=== PATIENT | female | born 1975 | race Caucasian/White ===

== ENCOUNTER → 2016-09-15 | Outpatient (CLI) | payer BC ==
[2016-09-15 08:11] LABS: ALT 32 U/L (9-52); AST 20 U/L (14-36); Alkaline Phosphatase 52 U/L (38-126); Anion Gap 8 mmol/L; Blood Urea Nitrogen 14 mg/dL (7-17); Calcium 9.3 mg/dL (8.4-10.2); Carbon Dioxide 29 mmol/L (22-30); Chloride 106 mmol/L (98-107); Cholesterol 163 mg/dL (<200); Creatine Kinase 211 U/L (30-135); Glucose 100 mg/dL (74-99); HDL Cholesterol 43 mg/dL (40-60); Non-African American GFR(MDRD) >60 (>60 ml/min/1.73 sqM); Potassium 4.6 mmol/L (3.5-5.1); Sodium 143 mmol/L (137-145); Total Bilirubin 0.7 mg/dL (0.2-1.3); Total Protein 7.3 g/dL (6.3-8.2); Triglycerides 121 mg/dL (<150)
--- NOTE | 2016-09-17 08:42 | MM ---
Reason for exam: screening (asymptomatic). Last mammogram was performed 2 years and 9 months ago. History: Family history of breast cancer in maternal grandmother at age 70 and breast cancer in maternal aunt. Took hormonal contraceptives for 10 years beginning at age 14. Physical Findings: A clinical breast exam by your physician is recommended on an annual basis and results should be correlated with mammographic findings. MG Screening Mammo w CAD Bilateral CC and MLO view(s) were taken. Prior study comparison: December 04, 2013, CAD bilateral diagnostic mammogram. August 24, 2011, bilateral digital screening mammo w/CAD. There are scattered fibroglandular densities. Focal asymmetry right MLO. This finding is changed when compared with previous exams. ASSESSMENT: Incomplete: need additional imaging evaluation, BI-RAD 0 RECOMMENDATION: Special view mammogram of the right breast. If lesion persists on supplemental views, image directed ultrasound is recommended. [facility] will attempt to contact patient to return for supplemental views and ultrasound if indicated.
== END | disposition home or self-care (01) ==
LOC: RADMAMWWP 07:39
PROVIDERS: ATTEND Family Medicine
DX: Z12.31 Encounter for screening mammogram for malignant neoplasm of breast (principal); R92.2 Inconclusive mammogram; I25.10 Atherosclerotic heart disease of native coronary artery without angina pectoris; E78.00 Pure hypercholesterolemia, unspecified
CPT/HCPCS: 80061; 80053; 82550; 36415; G0202

== ENCOUNTER → 2016-09-18 | Outpatient (CLI) | payer BC ==
--- NOTE | 2016-09-18 08:56 | MM ---
Reason for exam: additional evaluation requested from abnormal screening. Last mammogram was performed less than 1 month ago. History: Family history of breast cancer in maternal grandmother at age 70 and breast cancer in maternal aunt. Took hormonal contraceptives for 10 years beginning at age 14. Physical Findings: Nurse did not find any significant physical abnormalities on exam. MG Work Up Mamm w CAD RT CCRM, ML, and spot compression MLO view(s) were taken of the right breast. Prior study comparison: September 15, 2016, bilateral MG screening mammo w CAD. December 04, 2013, CAD bilateral diagnostic mammogram. There are scattered fibroglandular densities. Focal asymmetry in the right breast does not persist as distinct lesion on additional views. These results were verbally communicated with the patient and result sheet given to the patient on 09/18/16. ASSESSMENT: Benign, BI-RAD 2 RECOMMENDATION: Return to routine screening mammogram schedule for both breasts.
== END | disposition home or self-care (01) ==
LOC: RADMAMWWP 08:09
PROVIDERS: ATTEND Family Medicine
DX: R92.8 Other abnormal and inconclusive findings on diagnostic imaging of breast (principal)

== ENCOUNTER → 2016-12-19 | Outpatient (CLI) | payer BC ==
--- NOTE | 2016-12-26 14:37 | P.ARTDOP ---
Arterial Doppler Upper EXTREMITY ARTERIAL DOPPLER: DATE OF SERVICE: 12/19/2016 Reason for study: Weak right arm pulse. Doppler waveforms: Multiphasic bilaterally throughout. A bit more blunted on the right than the left. Pulse volume recording: []. Pressure gradients: Significant left to right gradient with right brachial 27 mmHg lower than the left and right radial 42 mmHg less than the left. 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 Clinical correlation recommended..
== END | disposition home or self-care (01) ==
LOC: RADUSWWP 13:43
PROVIDERS: ATTEND Internal Medicine Cardiovascular Disease
DX: R09.89 Other specified symptoms and signs involving the circulatory and respiratory systems (principal)
CPT/HCPCS: 93923

== ENCOUNTER → 2017-01-11 | Outpatient (CLI) | payer BC ==
[2017-01-11 13:33] LABS: CHCM 33.8; HCT 44.5 % (34.0-46.0); HDW 2.14; HGB 14.9 gm/dL (11.4-16.0); MCH 30.8 pg (25.0-35.0); MCHC 33.5 g/dL (31.0-37.0); Mean Platelet Volume 7.2; RBC 4.83 m/uL (3.80-5.40); RDW 12.1 % (11.5-15.5)
[2017-01-11 13:42] LABS: INR 1.1 (<1.1); Partial Thromboplastin Time 23.6 sec (22.0-30.0); Prothrombin Time 11.3 sec (9.0-12.0)
[2017-01-11 13:44] LABS: Anion Gap 13 mmol/L; Blood Urea Nitrogen 15 mg/dL (7-17); Calcium 9.6 mg/dL (8.4-10.2); Carbon Dioxide 23 mmol/L (22-30); Chloride 106 mmol/L (98-107); Glucose 104 mg/dL (74-99); Non-African American GFR(MDRD) >60 (>60 ml/min/1.73 sqM); Sodium 142 mmol/L (137-145)
== END | disposition home or self-care (01) ==
LOC: LABWHC1 12:50
PROVIDERS: ATTEND Internal Medicine Cardiovascular Disease
DX: I25.10 Atherosclerotic heart disease of native coronary artery without angina pectoris (principal)
CPT/HCPCS: 36415; 80048; 85027; 85610; 85730

== ENCOUNTER → 2017-09-17 | Outpatient (CLI) | payer BC ==
--- NOTE | 2017-09-18 09:35 | MM ---
Reason for exam: screening (asymptomatic). Last mammogram was performed 1 year ago. History: Family history of breast cancer in maternal grandmother at age 70 and breast cancer in maternal aunt. Took hormonal contraceptives for 10 years beginning at age 14. Physical Findings: A clinical breast exam by your physician is recommended on an annual basis and results should be correlated with mammographic findings. MG Screening Mammo w CAD Bilateral CC and MLO view(s) were taken. Prior study comparison: September 15, 2016, bilateral MG screening mammo w CAD. December 04, 2013, CAD bilateral diagnostic mammogram. There are scattered fibroglandular densities. Finding: There are typically benign round, regional calcifications in the posterior position of the right breast. There is no discrete abnormality. ASSESSMENT: Benign, BI-RAD 2 RECOMMENDATION: Routine screening mammogram of both breasts in 1 year.
== END | disposition home or self-care (01) ==
LOC: RADMAMWWP 13:37
PROVIDERS: ATTEND Obstetrics & Gynecology
DX: Z12.31 Encounter for screening mammogram for malignant neoplasm of breast (principal); Z80.3 Family history of malignant neoplasm of breast
CPT/HCPCS: 77067

== ENCOUNTER → 2017-11-22 | Outpatient (CLI) | payer BC ==
[2017-11-22 08:57] LABS: ALT 21 U/L (9-52); AST 18 U/L (14-36); Albumin 3.9 g/dL (3.5-5.0); Alkaline Phosphatase 60 U/L (38-126); Anion Gap 9 mmol/L; Blood Urea Nitrogen 13 mg/dL (7-17); Calcium 9.4 mg/dL (8.4-10.2); Carbon Dioxide 25 mmol/L (22-30); Chloride 106 mmol/L (98-107); Cholesterol 180 mg/dL (<200); Creatine Kinase 180 U/L (30-135); Glucose 100 mg/dL (74-99); HDL Cholesterol 38 mg/dL (40-60); LDL Cholesterol,Calculated 93 mg/dL (0-99); Potassium 4.5 mmol/L (3.5-5.1); Sodium 140 mmol/L (137-145); Total Bilirubin 0.7 mg/dL (0.2-1.3); Total Protein 6.9 g/dL (6.3-8.2); Triglycerides 246 mg/dL (<150)
== END | disposition home or self-care (01) ==
LOC: LABWHC1 07:33
PROVIDERS: ATTEND Internal Medicine Cardiovascular Disease
DX: I25.10 Atherosclerotic heart disease of native coronary artery without angina pectoris (principal); E78.00 Pure hypercholesterolemia, unspecified
CPT/HCPCS: 36415; 80053; 80061; 82550

== ENCOUNTER → 2017-12-27 | Outpatient (CLI) | payer BC ==
[2017-12-27 09:39] LABS: ALT 21 U/L (9-52); AST 17 U/L (14-36); Alkaline Phosphatase 58 U/L (38-126); Anion Gap 13 mmol/L; Blood Urea Nitrogen 13 mg/dL (7-17); Calcium 9.3 mg/dL (8.4-10.2); Carbon Dioxide 20 mmol/L (22-30); Chloride 108 mmol/L (98-107); Cholesterol 160 mg/dL (<200); Creatine Kinase 238 U/L (30-135); Glucose 93 mg/dL (74-99); HDL Cholesterol 31 mg/dL (40-60); LDL Cholesterol,Calculated 75 mg/dL (0-99); Potassium 4.5 mmol/L (3.5-5.1); Sodium 141 mmol/L (137-145); Total Bilirubin 0.9 mg/dL (0.2-1.3); Total Protein 6.7 g/dL (6.3-8.2); Triglycerides 268 mg/dL (<150)
== END | disposition home or self-care (01) ==
LOC: LABWHC1 08:00
PROVIDERS: ATTEND Internal Medicine Cardiovascular Disease
DX: E78.2 Mixed hyperlipidemia (principal); I25.10 Atherosclerotic heart disease of native coronary artery without angina pectoris; E03.8 Other specified hypothyroidism
CPT/HCPCS: 36415; 80053; 80061; 82550; 84443

== ENCOUNTER → 2018-01-23 | Outpatient (CLI) | payer BC | LOC: LABWHC1 11:20 | PROVIDERS: ATTEND Internal Medicine Cardiovascular Disease | DX: R74.8 Abnormal levels of other serum enzymes (principal) | CPT/HCPCS: 36415; 82550 ==

== ENCOUNTER → 2018-01-29 | Outpatient (CLI) | payer BC ==
--- NOTE | 2018-01-30 10:54 | ECHOF ---
Referral Reason:I25.110 CAD I10 htn R53.83 fatigue MEASUREMENTS -------- HEIGHT: 160.0 cm WEIGHT: 120.7 kg BP: 120/70 RVIDd: 3.1 cm (< 3.3) IVSd: 1.3 cm (0.6 - 1.1) LVIDd: 3.9 cm (3.9 - 5.3) LVPWd: 1.3 cm (0.6 - 1.1) IVSs: 1.6 cm LVIDs: 2.8 cm LVPWs: 1.5 cm LA Diam: 3.7 cm (2.7 - 3.8) LAESV Index (A-L): 17.39 ml/m Ao Diam: 2.2 cm (2.0 - 3.7) AV Cusp: 1.6 cm (1.5 - 2.6) EPSS: 0.3 cm MV E Manolo: 1.22 m/s MV DecT: 273 ms MV A Manolo: 0.81 m/s MV E/A Ratio: 1.51 AV maxP.66 mmHg AV meanP.12 mmHg RAP: 5.00 mmHg RVSP: 21.55 mmHg MV EF SLOPE: 55.46 mm/s (70 - 150) MV EXCURSION: 1.70 cm (> 18.000) FINDINGS -------- Sinus rhythm. This was a technically adequate study. The left ventricular size is normal. There is mild concentric left ventricular hypertrophy. Overa ll left ventricular systolic function is normal with, an EF between 55 - 60 %. The right ventricle is normal in size. Normal LA size by volume 22+/-6 ml/m2. The right atrium is normal in size. Peak/mean gradient across the Aortic Valve is 20.66mmHg / 9.12mmHg. Normally functioning bioprosthe tic valve. Mild mitral regurgitation is present. Mild tricuspid regurgitation present. Right ventricular systolic pressure is normal at < 35 mmHg. There is no pulmonic regurgitation present. The aortic root size is normal. Normal inferior vena cava with normal inspiratory collapse consistent with estimated right atrial pre ssure of 5 mmHg. There is no pericardial effusion. CONCLUSIONS -------- 1. Sinus rhythm. 2. This was a technically adequate study. 3. The left ventricular size is normal. 4. There is mild concentric left ventricular hypertrophy. 5. Overall left ventricular systolic function is normal with, an EF between 55 - 60 %. 6. The right ventricle is normal in size. 7. Normal LA size by volume 22+/-6 ml/m2. 8. The right atrium is normal in size. 9. Peak/mean gradient across the Aortic Valve is 20.66mmHg / 9.12mmHg. 10. Normally functioning bioprosthetic valve. 11. Mild mitral regurgitation is present. 12. Mild tricuspid regurgitation present. 13. Right ventricular systolic pressure is normal at < 35 mmHg. 14. There is no pulmonic regurgitation present. 15. The aortic root size is normal. 16. Normal inferior vena cava with normal inspiratory collapse consistent with estimated right atrial pressure of 5 mmHg. 17. There is no pericardial effusion. [employer] SUPERVISOR: SHANT Mullen
== END | disposition home or self-care (01) ==
LOC: RADECHMAIN 13:54
PROVIDERS: ATTEND Family Medicine
DX: I10 Essential (primary) hypertension (principal); R53.83 Other fatigue; I25.10 Atherosclerotic heart disease of native coronary artery without angina pectoris
CPT/HCPCS: 93306

== ENCOUNTER → 2018-06-24 | Outpatient (CLI) | payer BC ==
[~2018-06-24] MED LIST: REGADENOSON 0.4 MG/5 ML SYRINGE IV ONE
--- NOTE | 2018-06-24 13:22 | NM ---
EXAMINATION TYPE: NM stress lexiscan cardiolite DATE OF EXAM: 06/24/2018 COMPARISON: NONE HISTORY: Chest pain TECHNIQUE: After the intravenous administration of 10.32 mCi Tc 99m Sestamibi - Cardiolite resting S PECT images acquired 45 minutes post injection. The patient received 0.4mg Lexiscan, 25.4 mCi Tc 99m Sestamibi - Stress images obtained [address] injection FINDINGS: Review of stress and rest SPECT images demonstrates decreased reaffirms of uptake along the inferolat eral left ventricle towards the apex on stress as compared to rest images. Gated analysis shows shana l wall motion with an estimated left ventricular ejection fraction of 74 %. IMPRESSION: Pharmacologically induced left ventricular myocardial ischemia. Consider echocardiographic correlatio n for elevated ejection fraction. Results relayed to the office of Dr. Chris Cruz telephonically at the time of interpretation of this exam
--- NOTE | 2018-06-24 15:56 | P.STRESS ---
- Stress Test Note Stress Test Results/Findings: Exam Performed: NM stress lexiscan cardiolite Exam Date: 06/24/18 Reason for Exam: CHEST PAIN Height: 5 ft 3 in Weight: 123.377 kg Protocol: LEXISCAN Stage: NA Duration of Exercise: NA Resting Heart Rate: 71 Resting Blood Pressure: 167/67 Maximum Achieved Heart Rate: 120 Maximum Achieved Blood Pressure: 167/67 85% PMHR: NA 100% PMHR: NA METS: NA Technologist Comment: Stress Test Results/Findings: Baseline heart rate 71 beats a minute, baseline blood pressure 167/67 mmHg Baseline telemetry ECG showed sinus rhythm with incomplete right bundle branch block nonspecific ST segment abnormality Patient received Lexiscan infusion per protocol there was no ECG or rigors for ischemia no arrhythmias are noted Nuclear portion will be reported separately
== END | disposition home or self-care (01) ==
LOC: RADNMMAIN 07:58
PROVIDERS: ATTEND Internal Medicine Cardiovascular Disease
DX: I25.9 Chronic ischemic heart disease, unspecified (principal); R07.9 Chest pain, unspecified
CPT/HCPCS: 93017; 78452; A9500; J2785

== ENCOUNTER → 2018-06-30 | Outpatient (CLI) | payer BC ==
[2018-06-30 12:49] LABS: HCT 42.3 % (34.0-46.0); HGB 14.5 gm/dL (11.4-16.0); MCH 31.8 pg (25.0-35.0); MCHC 34.4 g/dL (31.0-37.0); MCV 92.6 fL (80.0-100.0); Mean Platelet Volume 7.2; Platelet Count 240 k/uL (150-450); RBC 4.57 m/uL (3.80-5.40); RDW 12.9 % (11.5-15.5)
[2018-06-30 13:06] LABS: Anion Gap 7 mmol/L; Blood Urea Nitrogen 13 mg/dL (7-17); Calcium 9.5 mg/dL (8.4-10.2); Carbon Dioxide 24 mmol/L (22-30); Chloride 106 mmol/L (98-107); Glucose 92 mg/dL (74-99); Potassium 4.5 mmol/L (3.5-5.1); Sodium 137 mmol/L (137-145)
[2018-06-30 13:19] LABS: INR 1.1 (<1.2); Prothrombin Time 10.3 sec (9.0-12.0)
== END ==
LOC: LABWHC1 11:45
PROVIDERS: ATTEND Internal Medicine Cardiovascular Disease
DX: Z01.812 Encounter for preprocedural laboratory examination (principal); I25.10 Atherosclerotic heart disease of native coronary artery without angina pectoris; R94.39 Abnormal result of other cardiovascular function study; Z95.2 Presence of prosthetic heart valve
CPT/HCPCS: 36415; 80048; 85027; 85610

== ENCOUNTER → 2018-07-30 | Outpatient (CLI) | payer BC ==
--- NOTE | 2018-07-30 15:57 | ECHOF ---
Referral Reason:Z95.2 Presence of prosthetic heart valve MEASUREMENTS -------- HEIGHT: 160.0 cm WEIGHT: 121.6 kg BP: RVIDd: 2.8 cm (< 3.3) IVSd: 1.1 cm (0.6 - 1.1) LVIDd: 4.0 cm (3.9 - 5.3) LVPWd: 1.1 cm (0.6 - 1.1) IVSs: 1.3 cm LVIDs: 1.9 cm LVPWs: 1.3 cm LAESV Index (A-L): 21.29 ml/m Ao Diam: 3.0 cm (2.0 - 3.7) LA Diam: 4.2 cm (2.7 - 3.8) MV EXCURSION: 17.354 mm (> 18.000) MV EF SLOPE: 61 mm/s (70 - 150) EPSS: 0.4 cm MV E Manolo: 1.09 m/s MV DecT: 256 ms MV A Manolo: 0.93 m/s MV E/A Ratio: 1.17 AV maxP.09 mmHg AV meanP.92 mmHg RAP: 5.00 mmHg RVSP: 23.47 mmHg FINDINGS -------- Sinus rhythm. This was a technically adequate study. The left ventricular size is normal. There is borderline concentric left ventricular hypertrophy. Overall left ventricular systolic function is normal with, an EF between 55 - 60 %. The right ventricle is normal in size and function. Normal LA size by volume 22+/-6 ml/m2. The right atrium is normal in size. There is no evidence of aortic regurgitation. There is no evidence of aortic stenosis. Normally f unctioning bioprosthetic aortic valve. The mitral valve leaflets are mildly thickened. There is trace to mild mitral regurgitation. Trace tricuspid regurgitation present. Right ventricular systolic pressure is normal at < 35 mmHg. There is no evidence of pulmonary hypertension. There is no pulmonic regurgitation present. The aortic root size is normal. Normal inferior vena cava with normal inspiratory collapse consistent with estimated right atrial pre ssure of 5 mmHg. There is no pericardial effusion. CONCLUSIONS -------- 1. Sinus rhythm. 2. This was a technically adequate study. 3. The left ventricular size is normal. 4. There is borderline concentric left ventricular hypertrophy. 5. Overall left ventricular systolic function is normal with, an EF between 55 - 60 %. 6. Normal LA size by volume 22+/-6 ml/m2. 7. Normally functioning bioprosthetic aortic valve. 8. The mitral valve leaflets are mildly thickened. 9. There is trace to mild mitral regurgitation. 10. Trace tricuspid regurgitation present. 11. Right ventricular systolic pressure is normal at < 35 mmHg. 12. There is no evidence of pulmonary hypertension. 13. There is no pulmonic regurgitation present. 14. The aortic root size is normal. 15. There is no pericardial effusion. RADARMAN: Ventura Nance RDCS
== END | disposition home or self-care (01) ==
LOC: RADECHMAIN 13:13
PROVIDERS: ATTEND Internal Medicine Cardiovascular Disease
DX: I34.0 Nonrheumatic mitral (valve) insufficiency (principal); I51.7 Cardiomegaly; Z95.2 Presence of prosthetic heart valve
CPT/HCPCS: 93306

== ENCOUNTER → 2018-12-01 | Outpatient (CLI) | payer BC ==
--- NOTE | 2018-12-02 08:20 | MM ---
Reason for exam: screening (asymptomatic). Last mammogram was performed 1 year and 3 months ago. History: Family history of breast cancer in maternal grandmother at age 70 and breast cancer in maternal aunt. Took hormonal contraceptives for 10 years beginning at age 14. Physical Findings: A clinical breast exam by your physician is recommended on an annual basis and results should be correlated with mammographic findings. MG Screening Mammo w CAD Bilateral CC and MLO view(s) were taken. Prior study comparison: September 17, 2017, bilateral MG screening mammo w CAD. September 18, 2016, right breast MG work up mamm w CAD RT. There are scattered fibroglandular densities. No suspicious abnormality. No significant changes when compared with prior studies. ASSESSMENT: Negative, BI-RAD 1 RECOMMENDATION: Routine screening mammogram of both breasts in 1 year.
== END | disposition home or self-care (01) ==
LOC: RADMAMWWP 11:46
PROVIDERS: ATTEND Obstetrics & Gynecology
DX: Z12.31 Encounter for screening mammogram for malignant neoplasm of breast (principal); Z80.3 Family history of malignant neoplasm of breast
CPT/HCPCS: 77067

== ENCOUNTER → 2019-01-19 | Outpatient (CLI) | payer BC ==
--- NOTE | 2019-02-24 13:43 | EM ---
EVENT MONITOR AGE: 43 SEX: Female. INDICATIONS:: The patient was monitored between the 19 of January and the February,. The rhythm strip revealed a sinus mechanism with episode of sinus tachycardia. There was one 4 complex ventricular tachycardia noted on the 26 of January that was asymptomatic. No pauses were noted. USMAN / MERT: [id number] /
== END | disposition home or self-care (01) ==
LOC: RADECHMAIN 12:25
PROVIDERS: ATTEND Family Medicine
DX: R00.0 Tachycardia, unspecified (principal); I25.10 Atherosclerotic heart disease of native coronary artery without angina pectoris
CPT/HCPCS: 93270

== ENCOUNTER → 2019-05-04 | Outpatient (CLI) | payer BC ==
[2019-05-04 18:52] LABS: African American GFR (CKD) 123.9 (60.0-200.0); Albumin 3.9 g/dL (3.80-4.90); Albumin/Globulin Ratio 1.77 (1.60-3.17); BUN/Creat Ratio 14.29 Ratio (12.00-20.00); Calcium 9.3 mg/dL (8.7-10.3); Chol/HDL Ratio 6.23; Globulin 2.2 g/dL (1.6-3.3); Total Bilirubin 0.6 mg/dL (0.2-1.2); Total Protein 6.1 g/dL (6.2-8.2)
== END | disposition home or self-care (01) ==
LOC: LABWHC1 11:22
PROVIDERS: ATTEND Internal Medicine Cardiovascular Disease
DX: E78.2 Mixed hyperlipidemia (principal)
CPT/HCPCS: 36415; 80053; 80061; 82550

== ENCOUNTER → 2019-08-10 | Outpatient (CLI) | payer BC ==
[2019-08-10 18:28] LABS: African American GFR (CKD) 123.9 (60.0-200.0); Anion Gap 5.7 mmol/L (4.00-12.00); BUN/Creat Ratio 17.14 Ratio (12.00-20.00); Carbon Dioxide 26.3 mmol/L (21.6-31.8); Chol/HDL Ratio 6.36; LDL Cholesterol,Calculated 148.6 mg/dL (0.0-131.0); Non-African American GFR(CKD) 106.9 (60.0-200.0); Potassium 4.7 mmol/L (3.5-5.5); Total Bilirubin 0.6 mg/dL (0.3-1.2); VLDL Calculation 60.4 mg/dL (5.00-40.00)
== END | disposition home or self-care (01) ==
LOC: LABWHC1 07:20
PROVIDERS: ATTEND Internal Medicine Cardiovascular Disease
DX: E78.2 Mixed hyperlipidemia (principal)
CPT/HCPCS: 36415; 80053; 80061; 82550

== ENCOUNTER → 2019-08-11 | Outpatient (CLI) | payer BC ==
--- NOTE | 2019-08-11 15:25 | P.BASOAP ---
Subjective Progress Note Date: 08/11/19 Principal diagnosis: Morbid obesity Patient switched her care from [facility] to [facility]. History of previous lap band. Believes she has gained some weight recently. When looking at her previous chart she has lost 10 pounds per our records. Describes variable restriction. Occasional episodes of dysphagia. Heartburn this daily. Takes Zantac twice a day. Last upper GI was September of last year and that was normal. Currently has 6.1 mL in her band. Objective - Exam Abdomen: Soft, nontender, nondistended Assessment/Plan (1) Morbid obesity Narrative/Plan: Options reviewed with the patient in detail. Patient is considering conversion from band. States she has several friends who have had a sleeve gastrectomy who had had weight loss with subsequent weight regain. Believe the patient would be a better candidate for gastric bypass either way. Patient will consider referral to [facility] where she had her heart surgery to discuss possi ble band conversion. Keep band at 6.1 mL for now. Plan: Date: Initial Weight: 102.33 kg Initial BMI: Current Weight: Current BMI: Type of Surgery: Total Volume in Band: 3.0 Previous Volume: Volume Removed: Volume Added: Band Size:
[2019-08-11 15:34] VITALS: BP 130/81; PULSE 86; TEMP 98.6; BMI 49.0
== END ==
LOC: BARWHC3 14:37
PROVIDERS: ATTEND Surgery
DX: E66.01 Morbid (severe) obesity due to excess calories (principal); Z98.84 Bariatric surgery status; Z68.42 Body mass index [BMI] 45.0-49.9, adult
CPT/HCPCS: 99211

== ENCOUNTER → 2019-09-11 | Outpatient (CLI) | payer BC ==
--- NOTE | 2019-09-12 13:57 | ECHOF ---
Referral Reason:Z95.2 Presence of prosthetic heart valve MEASUREMENTS -------- HEIGHT: 160.0 cm WEIGHT: 124.3 kg BP: RVIDd: 2.7 cm (< 3.3) IVSd: 1.4 cm (0.6 - 1.1) LVIDd: 3.8 cm (3.9 - 5.3) LVPWd: 1.4 cm (0.6 - 1.1) IVSs: 2.1 cm LVIDs: 1.9 cm LVPWs: 1.8 cm LAESV Index (A-L): 21.93 ml/m Ao Diam: 2.4 cm (2.0 - 3.7) LA Diam: 3.9 cm (2.7 - 3.8) MV EXCURSION: 13.883 mm (> 18.000) MV EF SLOPE: 56 mm/s (70 - 150) EPSS: 0.4 cm MV E Manolo: 0.94 m/s MV DecT: 252 ms MV A Manolo: 1.03 m/s MV E/A Ratio: 0.92 AV maxP.28 mmHg AV meanP.80 mmHg RAP: 5.00 mmHg RVSP: 24.33 mmHg FINDINGS -------- Sinus rhythm. This was a technically adequate study. The left ventricular size is normal. There is moderate concentric left ventricular hypertrophy. O verall left ventricular systolic function is normal with, an EF between 55 - 60 %. The diastolic fi lling pattern is normal for the age of the patient 12.79. The right ventricle is normal in size. The left atrial size is normal. Normal LA size by volume 22+/-6 ml/m2. The right atrial size is normal. Peak/mean gradient across the Aortic Valve is 18.28mmHg / 10.80mmHg. Normally functioning bioprosth etic valve. The mitral valve is normal. There is trace mitral regurgitation. The tricuspid valve appears structurally normal. Trace tricuspid regurgitation present. Right cong tricular systolic pressure is normal at < 35 mmHg. There is no pulmonic regurgitation present. The aortic root size is normal. Normal inferior vena cava with normal inspiratory collapse consistent with estimated right atrial pre ssure of 5 mmHg. There is no pericardial effusion. CONCLUSIONS -------- 1. Sinus rhythm. 2. This was a technically adequate study. 3. The left ventricular size is normal. 4. There is moderate concentric left ventricular hypertrophy. 5. Overall left ventricular systolic function is normal with, an EF between 55 - 60 %. 6. The diastolic filling pattern is normal for the age of the patient 12.79 7. The right ventricle is normal in size. 8. The left atrial size is normal. 9. Normal LA size by volume 22+/-6 ml/m2. 10. The right atrial size is normal. 11. Peak/mean gradient across the Aortic Valve is 18.28mmHg / 10.80mmHg. 12. Normally functioning bioprosthetic valve. 13. The mitral valve is normal. 14. There is trace mitral regurgitation. 15. The tricuspid valve appears structurally normal. 16. Trace tricuspid regurgitation present. 17. Right ventricular systolic pressure is normal at < 35 mmHg. 18. There is no pulmonic regurgitation present. 19. The aortic root size is normal. 20. Normal inferior vena cava with normal inspiratory collapse consistent with estimated right atrial pressure of 5 mmHg. 21. There is no pericardial effusion. DIRECTOR OF GIFT PLANNING: Janice Connolly RDCS
== END | disposition home or self-care (01) ==
LOC: RADECHMAIN 13:04
PROVIDERS: ATTEND Internal Medicine Cardiovascular Disease
DX: I51.7 Cardiomegaly (principal); Z95.4 Presence of other heart-valve replacement
CPT/HCPCS: 93306

== ENCOUNTER → 2020-02-25 | Outpatient (CLI) | payer BC ==
--- NOTE | 2020-02-29 10:39 | MM ---
Reason for exam: screening (asymptomatic). Last mammogram was performed 1 year and 3 months ago. History: Family history of breast cancer in maternal grandmother at age 70 and breast cancer in maternal aunt. Took hormonal contraceptives for 10 years beginning at age 14. Physical Findings: A clinical breast exam by your physician is recommended on an annual basis and results should be correlated with mammographic findings. MG Screening Mammo w CAD Bilateral CC and MLO view(s) were taken. Prior study comparison: December 01, 2018, bilateral MG screening mammo w CAD. September 17, 2017, bilateral MG screening mammo w CAD. There are scattered fibroglandular densities. There are benign appearing round regional calcifications in the right breast. There is no discrete abnormality. ASSESSMENT: Benign, BI-RAD 2 RECOMMENDATION: Routine screening mammogram of both breasts in 1 year.
== END | disposition home or self-care (01) ==
LOC: RADMAMWWP 13:49
PROVIDERS: ATTEND Obstetrics & Gynecology
DX: Z80.3 Family history of malignant neoplasm of breast (principal)
CPT/HCPCS: 77067

== ENCOUNTER → 2020-08-09 | Outpatient (CLI) | payer BC ==
[2020-08-09 14:43] VITALS: BP 148/87; PULSE 98; TEMP 97.7; BMI 48.3
--- NOTE | 2020-08-09 17:28 | P.BASOAP ---
Subjective Progress Note Date: 08/09/20 Principal diagnosis: Morbid obesity Patient returns requesting LAP-BAND adjustment period was last seen 1 year ago. Patient has lost 4 pounds since her last visit however complains of increased hunger. No dysphagia, no nausea or vomiting, no reflux. Patient takes omeprazole daily. Still considering gastric bypass at [facility]. Never did make her appointment. Objective - Vital Signs Vital signs: Vital Signs Temp 97.7 F 08/09/20 14:29 Pulse 98 08/09/20 14:29 Resp BP 148/87 08/09/20 14:29 Pulse Ox Intake & Output 08/08/20 08/09/20 08/09/20 18:59 06:59 18:59 Weight 123.831 kg - Exam Abdomen: Soft, nontender, nondistended Assessment/Plan (1) Morbid obesity Narrative/Plan: Options reviewed. Patient requesting fluid to be added. We'll add 0.2 mL. Patient will continue to consider [facility] consult with bariatric surgery for possible conversion to gastric bypass. The patient's lap band port was palpated. The site was aseptically prepped. The Delatorre needle was advanced into the port. A total of 0.2 ml of fluid was added. Pressure was held and a sterile dressing was applied. Plan: Date: 08/09/20 Initial Weight: 102.33 kg Initial BMI: 39.9 Current Weight: 123.831 kg Current BMI: 48.3 Type of Surgery: Total Volume in Band: 6.3 Previous Volume: Volume Removed: Volume Added: 0.2 Band Size:
== END | disposition home or self-care (01) ==
LOC: BARWHC3 14:00
PROVIDERS: ATTEND Surgery
DX: E66.01 Morbid (severe) obesity due to excess calories (principal); Z68.39 Body mass index [BMI] 39.0-39.9, adult
CPT/HCPCS: 99212

== ENCOUNTER → 2020-11-29 | Outpatient (CLI) | payer BC ==
--- NOTE | 2020-11-29 16:38 | P.BASOAP ---
Subjective Progress Note Date: 11/29/20 Principal diagnosis: Morbid obesity Patient stating she's having increased reflux and occasional episodes of vomiting. When she was last seen in August she had 0.2 mL added to her band. She has considered gastric bypass but declines as she states it is too invasive. Remains interested in sleeve gastrectomy. Patient is agreeable to having her band loosened. She does not want a lot of fluid out. Denies pain. Objective - Exam Abdomen: Soft, nontender, nondistended Assessment/Plan (1) Morbid obesity Narrative/Plan: Patient is agreeable to have 0.2 mL removed. If symptoms persist consider upper GI, emptying of band, and possible conversion. Patient remains interested in sleeve gastrectomy. Discussed possibility of poor weight loss and chronic reflux as a result of conversion to sleeve gastrectomy. We'll see how the patient's symptoms change after loosening band. The patient's lap band port was palpated. The site was aseptically prepped. The Delatorre needle was advanced into the port. A total of 0.2 ml of fluid was removed for a total of 6.1 mL. Pressure was held and a sterile dressing was applied. Plan: Date: Initial Weight: 102.33 kg Initial BMI: Current Weight: Current BMI: Type of Surgery: Total Volume in Band: 6.3 Previous Volume: Volume Removed: Volume Added: Band Size:
[2020-11-30 08:24] VITALS: BP 184/103; PULSE 103; TEMP 98.1; BMI 47.8
== END ==
LOC: BARWHC3 14:50
PROVIDERS: ATTEND Surgery
DX: E66.01 Morbid (severe) obesity due to excess calories (principal); Z68.39 Body mass index [BMI] 39.0-39.9, adult
CPT/HCPCS: 99212

== ENCOUNTER → 2021-03-15 | Outpatient (CLI) | payer BC | END | disposition home or self-care (01) | DX: E66.01 Morbid (severe) obesity due to excess calories (principal); I08.1 Rheumatic disorders of both mitral and tricuspid valves; Z95.2 Presence of prosthetic heart valve | CPT/HCPCS: 93306 ==

== ENCOUNTER → 2021-03-20 | Outpatient (CLI) | payer BC ==
[2021-03-20 11:33] VITALS: BMI 47.7
== END ==
LOC: BARWHC3 08:40
PROVIDERS: ATTEND Surgery
DX: E66.01 Morbid (severe) obesity due to excess calories (principal); Z71.3 Dietary counseling and surveillance; Z68.42 Body mass index [BMI] 45.0-49.9, adult; Z88.2 Allergy status to sulfonamides
CPT/HCPCS: 97804

== ENCOUNTER → 2021-03-27 | Outpatient (CLI) | payer BC ==
[2021-03-27 11:31] LABS: African American GFR (CKD) 103.9 (60.0-200.0); Albumin 4.4 g/dL (3.80-4.90); Albumin/Globulin Ratio 1.69 (1.60-3.17); Anion Gap 4.5 mmol/L (4.00-12.00); BUN/Creat Ratio 27.5 Ratio (12.00-20.00); Calcium 9.1 mg/dL (8.7-10.3); Carbon Dioxide 26.5 mmol/L (21.6-31.8); Chol/HDL Ratio 5.89; Globulin 2.6 g/dL (1.6-3.3); Non-African American GFR(CKD) 89.7 (60.0-200.0); Potassium 4.8 mmol/L (3.5-5.5); Total Bilirubin 0.4 mg/dL (0.3-1.2)
[2021-03-27 11:38] LABS: T4, Free (Free Thyroxine) 1.1 ng/dL (0.80-1.80)
[2021-03-27 11:40] LABS: Basophils # (A) 0.08 X 10*3/uL (0.00-0.10); Basophils % (A) 0.7 %; Eosinophils # (A) 0.28 X 10*3/uL (0.04-0.35); Eosinophils % (A) 2.3 %; HCT 45.6 % (37.2-46.3); HGB 14.9 g/dL (12.0-15.0); Lymphocytes # (A) 3.05 X 10*3/uL (0.90-5.00); MCH 30.2 pg (27.0-32.0); MCHC 32.7 g/dL (32.0-37.0); MCV 92.3 fL (80.0-97.0); Monocytes # (A) 0.74 X 10*3/uL (0.20-1.00); Monocytes % (A) 6.1 %; Neutrophils # (A) 7.99 X 10*3/uL (1.80-7.70); Neutrophils % (A) 65.5 %; Platelet Count 363 X 10*3/uL (140-440); RBC 4.94 X 10*6/uL (4.10-5.20); RDW 12.8 % (11.5-14.5); WBC 12.19 X 10*3/uL (4.50-10.00)
== END | disposition home or self-care (01) ==
LOC: LABWHC1 07:45
PROVIDERS: ATTEND Internal Medicine Cardiovascular Disease
DX: E78.5 Hyperlipidemia, unspecified (principal); E03.9 Hypothyroidism, unspecified; I10 Essential (primary) hypertension; I25.10 Atherosclerotic heart disease of native coronary artery without angina pectoris
CPT/HCPCS: 36415; 80053; 80061; 84439; 84443; 85025

== ENCOUNTER 2021-04-04 09:02 | Day surgery (SDC) | payer BC ==
[2021-03-31 10:12] VITALS: BMI 49.0
[2021-04-04] MEDS: LACTATED RINGERS 1,000 ML IV SCH ×2 (09:41→09:55)
[2021-04-04 09:54] VITALS: TEMP 97
[2021-04-04] MEDS ORDERED: PROPOFOL 10 MG/ML 20 ML VIAL IV ONE (10:26)
[2021-04-04] MEDS ORDERED: MIDAZOLAM 2 MG/2 ML VIAL ONE (10:26)
[2021-04-04] MEDS ORDERED: KETAMINE 10 MG/ML 20 ML VIAL ONE (10:26)
[2021-04-04] MEDS ORDERED: LIDOCAINE 1% INJ 10MG/ML (20 ML MDV) ONE (10:26)
--- NOTE | 2021-04-04 10:29 | P.GSHP ---
History of Present Illness H&P Date: 04/04/21 Chief Complaint: GERD Patient here today for upper endoscopy. Has complaints of chronic reflux. Has a lap band in place. Interested in band conversion to sleeve gastrectomy. Past Medical History Past Medical History: Asthma, GERD/Reflux, Hypertension, Sleep Apnea/CPAP/BIPAP, Thyroid Disorder Additional Past Medical History / Comment(s): positive Covid 19, 01/2021, was treated with IV bamlanivimab (BAM) History of Any Multi-Drug Resistant Organisms: None Reported Past Surgical History: Adenoidectomy, Bariatric Surgery, Section, Cholecystectomy, Tonsillectomy Additional Past Surgical History / Comment(s): aortic valve replaced 08/23/15, bicuspid valve replaced 04/18/17, lap band Past Anesthesia/Blood Transfusion Reactions: No Reported Reaction Smoking Status: Vaper - Past Family History Father Family Medical History: Coronary Artery Disease (CAD), Diabetes Mellitus, Hypertension Additional Family Medical History / Comment(s): at 47 Medications and Allergies Home Medications Medication Instructions Recorded Confirmed Type Levothyroxine Sodium [Synthroid] 75 mcg PO QAM 02/05/14 03/31/21 History Cyanocobalamin [Vitamin B-12] 2,000 mcg PO DAILY@1200 03/18/15 03/31/21 History ALPRAZolam [Xanax] 1 mg PO TID PRN 03/20/21 03/31/21 History Albuterol Sulfate [Proventil Hfa] 1 puff INHALATION Q4-6H PRN 03/20/21 03/31/21 History Aspirin [Adult Low Dose Aspirin EC] 81 mg PO DAILY 03/20/21 03/31/21 History Cholecalciferol [Vitamin D3 (25 125 mcg PO DAILY 03/20/21 03/31/21 History Mcg = 1000 Iu)] DULoxetine HCL [Cymbalta] 60 mg PO QAM 03/20/21 03/31/21 History Losartan [Cozaar] 100 mg PO HS 03/20/21 03/31/21 History Magnesium 400 mg PO DAILY 03/20/21 03/31/21 History Multivitamins, Thera [Multivitamin 1 tab PO DAILY 03/20/21 03/31/21 History (formulary)] Omeprazole 20 mg PO DAILY 03/20/21 03/31/21 History Turmeric Root Extract [Turmeric] 500 mg PO DAILY 03/20/21 03/31/21 History Vitamin E (Dl,Tocopheryl Acet) 400 unit PO DAILY 03/20/21 03/31/21 History [Vitamin E (400 Iu = 180 mg)] hydroCHLOROthiazide [Hydrodiuril] 25 mg PO QAM 03/20/21 03/31/21 History traMADol HCL [Ultram] 50 mg PO Q6HR PRN 03/20/21 03/31/21 History Albuterol Nebulized [Ventolin 2.5 mg INHALATION Q6H PRN 03/31/21 03/31/21 History Nebulized] Etonogestrel [Nexplanon] 1 implant SQ [id number] 03/31/21 03/31/21 History Fluticasone Propionate 2 spr NASAL DAILY 03/31/21 03/31/21 History Metoprolol Succinate (ER) [Toprol 100 mg PO HS 03/31/21 03/31/21 History Xl] Escitalopram Oxalate [Lexapro] 20 PO DAILY 04/04/21 History Allergies Allergy/AdvReac Type Severity Reaction Status Date / Time Sulfa (Sulfonamide Allergy Rash/Hives Verified 04/04/21 09:47 Antibiotics) Surgical - Exam Vital Signs Temp Pulse Resp BP Pulse Ox 97.0 F L 80 18 169/79 97 04/04/21 09:53 04/04/21 09:53 04/04/21 09:53 04/04/21 09:53 04/04/21 09:53 Physical exam: General: Well-developed, well-nourished HEENT: Normocephalic, sclerae nonicteric Abdomen: Nontender, nondistended Extremities: No edema Neuro: Alert and oriented Assessment and Plan (1) GERD (gastroesophageal reflux disease) Narrative/Plan: Will proceed with upper endoscopy Current Visit: Yes Status: Acute Code(s): K21.9 - GASTRO-ESOPHAGEAL REFLUX DISEASE WITHOUT ESOPHAGITIS SNOMED Code(s): 940441314
--- NOTE | 2021-04-04 10:41 | P.PCN ---
Date of Procedure: 04/04/21 Procedure(s) Performed: Preoperative Dx: GERD, presurgical Postoperative Dx: Mild gastritis Procedure: EGD with Bx Anesthesia: Sedation Endoscopist: Dr. Jacobson Specimens: Antrum Endoscopic Procedure: The patient was on the endoscopy table in the left decubitus position. The Olympus gastroscope was inserted into the oropharynx and passed under direct visualization to the region of the third portion of the duodenum. From that point the scope was slowly withdrawn inspecting all surfaces carefully. There were no neoplastic inflammatory or polypoid lesions throughout the duodenum. The pylorus was widely patent. The stomach was carefully inspected. There was mild gastritis present. A biopsy of the antrum took place to rule out H. pylori. Retroflexion revealed a normal band plication without evidence of hiatal hernia. The esophagus was then carefully examined. There were no neoplastic inflammatory or polypoid lesions throughout the visualized esophagus. The patient was then taken to the recovery room in stable condition per anesthesia guidelines. Recommendations: Resume diet. Follow up bariatric center. Will need to have her band empty.
[2021-04-04 11:04] VITALS: BP 132/76; PULSE 63; RESP 16
== END 2021-04-04 11:33 | disposition home or self-care (01) ==
LOC: ORWHC2ENDO 09:02
PROVIDERS: ATTEND Surgery
DX: K29.70 Gastritis, unspecified, without bleeding (principal); K21.9 Gastro-esophageal reflux disease without esophagitis; Z98.84 Bariatric surgery status; J45.909 Unspecified asthma, uncomplicated; I10 Essential (primary) hypertension; G47.30 Sleep apnea, unspecified; E07.9 Disorder of thyroid, unspecified; Z86.16 Personal history of COVID-19; Z90.89 Acquired absence of other organs; Z90.49 Acquired absence of other specified parts of digestive tract; Z98.891 History of uterine scar from previous surgery; Z95.2 Presence of prosthetic heart valve; Z82.49 Family history of ischemic heart disease and other diseases of the circulatory system; Z79.82 Long term (current) use of aspirin; Z79.890 Hormone replacement therapy; Z79.899 Other long term (current) drug therapy; Z88.2 Allergy status to sulfonamides
CPT/HCPCS: 81025; 88305; 43239; J2250; J2001; J2704

== ENCOUNTER → 2021-04-11 | Outpatient (CLI) | payer BC ==
[2021-04-11 14:32] VITALS: BP 128/78; PULSE 73; TEMP 97.2; BMI 48.9
--- NOTE | 2021-04-11 16:36 | P.BASOAP ---
Subjective Progress Note Date: 04/11/21 Principal diagnosis: Morbid obesity Patient returns after recent upper endoscopy. EGD showed mild gastritis. Doing well. Patient requires band emptying prior to conversion which is being scheduled in May. No other changes to her history and physical. States she has stopped smoking although his using a vape pen. Objective - Vital Signs Vital signs: Vital Signs Temp 97.2 F L 04/11/21 14:28 Pulse 73 04/11/21 14:28 Resp BP 128/78 04/11/21 14:28 Pulse Ox Intake & Output 04/10/21 04/11/21 04/11/21 18:59 06:59 18:59 Weight 125.191 kg - Exam Abdomen: Soft, nontender, nondistended Assessment/Plan (1) Morbid obesity Narrative/Plan: 45-year-old female still interested in sleeve gastrectomy conversion from LAP- BAND. Will empty the band at this time. Patient will continue with nicotine cessation. We'll schedule sleeve gastrectomy in May. The patient's lap band port was palpated. The site was aseptically prepped. The Delatorre needle was advanced into the port. A total of 4 ml of fluid was removed. Pressure was held and a sterile dressing was applied. Plan: Date: 04/11/21 Initial Weight: 102.33 kg Initial BMI: 39.9 Current Weight: 125.191 kg Current BMI: 48.9 Type of Surgery: Total Volume in Band: 6.1 Previous Volume: Volume Removed: Volume Added: Band Size:
== END ==
LOC: BARWHC3 13:55
PROVIDERS: ATTEND Surgery
DX: Z46.51 Encounter for fitting and adjustment of gastric lap band (principal); E66.01 Morbid (severe) obesity due to excess calories; F17.290 Nicotine dependence, other tobacco product, uncomplicated; Z68.42 Body mass index [BMI] 45.0-49.9, adult; Z88.2 Allergy status to sulfonamides
CPT/HCPCS: 99212

== ENCOUNTER → 2021-05-16 | Outpatient (CLI) | payer BC ==
[2021-05-16 15:34] VITALS: BP 150/90; PULSE 88; TEMP 98; BMI 50.8
--- NOTE | 2021-05-16 17:02 | P.BASOAP ---
Subjective Progress Note Date: 05/16/21 Principal diagnosis: Morbid obesity Patient presents back to the clinic stating that she is not ready to proceed with LAP-BAND conversion. Says she is having significant difficulties quitting nicotine. Patient says she has had some nausea after emptying her LAP-BAND. She would like more fluid added back to her band. States she misses her restriction. Objective - Vital Signs Vital signs: Vital Signs Temp 98 F 05/16/21 15:31 Pulse 88 05/16/21 15:31 Resp BP 150/90 05/16/21 15:31 Pulse Ox Intake & Output 05/15/21 05/16/21 05/16/21 18:59 06:59 18:59 Weight 130.181 kg - Exam Abdomen: Soft, nontender, nondistended Assessment/Plan (1) Morbid obesity Narrative/Plan: We'll cancel the patient's scheduled sleeve gastrectomy. We'll add 3 mL back to her band. Previously she had 4 mL present. Return visit 4 weeks. Plan: Date: 05/16/21 Initial Weight: 102.33 kg Initial BMI: 39.9 Current Weight: 130.181 kg Current BMI: 50.8 Type of Surgery: Total Volume in Band: 9.1 Previous Volume: Volume Removed: Volume Added: 3 Band Size:
== END ==
LOC: BARWHC3 13:58
PROVIDERS: ATTEND Surgery
DX: E66.01 Morbid (severe) obesity due to excess calories (principal); Z46.51 Encounter for fitting and adjustment of gastric lap band; Z68.43 Body mass index [BMI] 50.0-59.9, adult; Z87.891 Personal history of nicotine dependence; Z88.2 Allergy status to sulfonamides
CPT/HCPCS: 99212

== ENCOUNTER → 2021-06-13 | Outpatient (CLI) | payer BC ==
--- NOTE | 2021-06-13 14:31 | P.BASOAP ---
Subjective Progress Note Date: 06/13/21 Principal diagnosis: Morbid obesity Patient returns for evaluation. When she was last seen 1 month ago patient had 3 mL added to her band. In early April her band was emptied of a total of 4 mL. She is requesting to go back to that volume. Had decent restriction initially but that wore off. Objective - Exam Abdomen: Soft, nontender, nondistended Assessment/Plan (1) Morbid obesity Narrative/Plan: Patient doing well at this time. Would like to go back to the 4 mL she was adequately emptied her in early April. We'll add 1 mL at this time. Follow-up if further feels needed. The patient's lap band port was palpated. The site was aseptically prepped. The Delatorre needle was advanced into the port. A total of 1 ml of fluid was abdomen. Pressure was held and a sterile dressing was applied. Plan: Date: Initial Weight: 102.33 kg Initial BMI: Current Weight: Current BMI: Type of Surgery: Total Volume in Band: 9.1 Previous Volume: Volume Removed: Volume Added: Band Size:
[2021-06-13 14:37] VITALS: BP 140/92; PULSE 111; TEMP 98; BMI 50.3
== END ==
LOC: BARWHC3 13:59
PROVIDERS: ATTEND Surgery
DX: E66.01 Morbid (severe) obesity due to excess calories (principal); Z46.51 Encounter for fitting and adjustment of gastric lap band; F17.200 Nicotine dependence, unspecified, uncomplicated; Z68.43 Body mass index [BMI] 50.0-59.9, adult; Z88.2 Allergy status to sulfonamides
CPT/HCPCS: 99212

== ENCOUNTER → 2021-07-27 | Outpatient (CLI) | payer BC ==
--- NOTE | 2021-07-31 09:25 | MM ---
Reason for exam: screening (asymptomatic). Last mammogram was performed 1 year and 5 months ago. History: Family history of breast cancer in maternal grandmother at age 70 and breast cancer in maternal aunt. Took hormonal contraceptives for 10 years beginning at age 14. Physical Findings: Nurse did not find any significant physical abnormalities on exam. MG Screening Mammo w CAD Bilateral CC and MLO view(s) were taken. Prior study comparison: February 25, 2020, bilateral MG screening mammo w CAD. December 01, 2018, bilateral MG screening mammo w CAD. There are scattered fibroglandular densities. There are benign appearing round calcifications in the right breast. There is no discrete abnormality. ASSESSMENT: Benign, BI-RAD 2 RECOMMENDATION: Routine screening mammogram of both breasts in 1 year.
== END | disposition home or self-care (01) ==
LOC: RADMAMWWP 13:10
PROVIDERS: ATTEND Obstetrics & Gynecology
DX: Z12.31 Encounter for screening mammogram for malignant neoplasm of breast (principal); Z80.3 Family history of malignant neoplasm of breast
CPT/HCPCS: 77067

== ENCOUNTER 2021-10-23 12:25 | Inpatient (IN) | payer BC ==
--- NOTE | 2021-10-23 13:19 | ED ---
General Adult HPI - General Chief complaint: Shortness of Breath Stated complaint: sob/abd ekg Time Seen by Provider: 10/23/21 13:03 Source: patient, RN notes reviewed, old records reviewed Mode of arrival: wheelchair - History of Present Illness Initial comments: Patient is a 46-year-old female with past medical history remarkable for an aortic valve and tricuspid valve replacement, thyroid disorder,, acid reflux, asthma who presents emergency Department complaining of shortness of breath that is getting worse over the last week. She describes it as worsening exertional s hortness of breath. States it is worse with any form of exertion. He doesn't to her physician today and they found that her d-dimer is elevated. It is unknown how high, she was sent here for further evaluation. Denies any chest pain, abdominal pain, nausea, vomiting. Denies any lightheadedness, weakness, numbness. Does endorse some right calf cramping denies any lower extremity swelling. He does endorse some nonspecific paraspinal muscle back pain. His no other acute complaints at this time. Presents over concern for shortness of breath. She was extubated and was treated for COVID-19. States she has been coughing with minimal mucus. Denies any upper respiratory symptoms. Patient was evaluated when she was placed in a room. - Related Data Home Medications Medication Instructions Recorded Confirmed Levothyroxine Sodium [Synthroid] 75 mcg PO QAM 02/05/14 10/23/21 Cyanocobalamin [Vitamin B-12] 2,000 mcg PO DAILY@1200 //10/23/21 ALPRAZolam [Xanax] 1 mg PO TID PRN 03/20/21 10/23/21 Albuterol Sulfate [Proventil Hfa] 1 puff INHALATION Q4-6H PRN 03/20/21 10/23/21 Aspirin [Adult Low Dose Aspirin EC] 81 mg PO DAILY 03/20/21 10/23/21 Cholecalciferol [Vitamin D3 (25 125 mcg PO DAILY 03/20/21 10/23/21 Mcg = 1000 Iu)] Losartan [Cozaar] 100 mg PO HS 03/20/21 10/23/21 Omeprazole 20 mg PO DAILY PRN 03/20/21 10/23/21 hydroCHLOROthiazide [Hydrodiuril] 25 mg PO QAM 03/20/21 10/23/21 traMADol HCL [Ultram] 50 mg PO Q6HR PRN 03/20/21 10/23/21 Etonogestrel [Nexplanon] 1 implant SQ [id number] 03/31/21 10/23/21 Metoprolol Succinate (ER) [Toprol 100 mg PO HS 03/31/21 10/23/21 Xl] Escitalopram [Lexapro] 20 mg PO DAILY 10/23/21 10/23/21 Famotidine [Pepcid] 20 mg PO DAILY PRN 10/23/21 10/23/21 Allergies Allergy/AdvReac Type Severity Reaction Status Date / Time Sulfa (Sulfonamide Allergy Rash/Hives Verified 10/23/21 14:48 Antibiotics) Review of Systems ROS Statement: Those systems with pertinent positive or pertinent negative responses have been documented in the HPI. Review of Systems: CONST: Denies fever EYES: Denies blurry vision ENT: Endorses small amount of nasal congestion C/V: Denies Chest pain RESP: Endorses Shortness of breath GI: Denies abdominal pain : Denies dysuria SKIN: Denies rash. MSK: Denies joint pain. NEURO: Denies headache ROS Other: All systems not noted in ROS Statement are negative. Past Medical History Past Medical History: GERD/Reflux, Thyroid Disorder Additional Past Medical History / Comment(s): heart murmur. defects with heart at . History of Any Multi-Drug Resistant Organisms: None Reported Past Surgical History: Adenoidectomy, Bariatric Surgery, Cardiac Valve Replacement, Section, Cholecystectomy, Heart Catheterization, Tonsillectomy Additional Past Surgical History / Comment(s): lap band. open heart aug 2015, april 2017. cow valve - main aortic valve. bicupsid valve. Past Anesthesia/Blood Transfusion Reactions: No Reported Reaction Past Psychological History: Anxiety Smoking Status: Current every day smoker Past Alcohol Use History: None Reported Past Drug Use History: None Reported - Past Family History Father Family Medical History: Coronary Artery Disease (CAD), Diabetes Mellitus, H ypertension Additional Family Medical History / Comment(s): at 47 General Exam - General Exam Comments Initial Comments: General: Appears in no acute distress. HEAD: Normal with no signs of head trauma. EYES: PERRLA, EOMI, conjunctiva normal, no discharge. ENT: Hearing grossly intact, normal oropharynx. RESPIRATORY: Clear breath sounds bilaterally. No wheezes, rales, or rhonchi. No increased work of breathing. No hypoxia. C/V: Regular rate and rhythm. S1 and S2 auscultated, no edema, peripheral pulses 2+ and intact throughout ABD: Abd is soft, nontender, nondistended EXT: Normal range of motion, no obvious deformity SKIN: No rashes or lesions observed on exposed skin. NEURO: Alert and oriented x 4. Cranial nerves II-XII intact. No focal sensory or strength deficits. Course Vital Signs 10/23/21 10/23/21 12:56 16:07 Temperature 98.4 F Pulse Rate 90 94 Respiratory 18 20 Rate Blood Pressure 131/105 137/97 O2 Sat by Pulse 98 96 Oximetry Medical Decision Making - Medical Decision Making Based on the patient's presentation and physical exam, we will repeat the d- dimer was there is concern for possible pulmonary embolism and the patient. Also obtain a cardiopulmonary workup as well as Covid and flu swabs. Patient was in agreement this plan. EKG and chest x-ray will be obtained as well as cardiac workup. EKG showed no signs of acute ischemia. Laboratory studies remarkable for an elevated d-dimer of 2.44. Remainder the left unremarkable. Covid, flu are negative. Patient's chest x-ray revealed no acute cardiopulmonary process. Bilateral venous duplex is revealed no signs of DVT. After the patient results of laboratory studies and imaging. I did discuss with her that due to the elevated d-dimer we will evaluate for possible pulmonary embolus and with the chest CTA. She was in agreement this plan. Chest CTA did reveal multiple bilateral segmental pulmonary emboli. Questionable right heart strain. They recommend a follow-up echo which was ordered. I discussed this with the patient. She exposed understanding. She'll be placed on a heparin drip. I consulted pulmonology and spoke with Dr. Michelle who was in agreement this plan. I also consulted vascular surgery and spoke with Dr. Meza who was in agreement with this plan. Cardiology was consulted to review the patient's echo, and due to her history of valve replacement. I spoke with the admitting team under Dr. Valenzuela who was in agreement with this plan. Patient was therefore admitted in serious condition to a telemetry bed stepped on. Patient is hemodynamically stable throughout her stay in the emergency department. Vital signs remain within normal limits and stable. I updated the patient and reevaluated her multiple times throughout her stay. - Lab Data Result diagrams: 10/23/21 13:33 10/23/21 13:33 Lab Results 10/23/21 10/23/21 10/23/21 Range/Units 13:13 13:33 13:33 WBC 10.3 (3.8-10.6) k/uL RBC 4.28 (3.80-5.40) m/uL Hgb 13.9 (11.4-16.0) gm/dL Hct 40.5 (34.0-46.0) % MCV 94.5 (80.0-100.0) fL MCH 32.4 (25.0-35.0) pg MCHC 34.2 (31.0-37.0) g/dL RDW 12.6 (11.5-15.5) % Plt Count 275 (150-450) k/uL MPV 7.8 Neutrophils % 69 % Lymphocytes % 23 % Monocytes % 4 % Eosinophils % 3 % Basophils % 1 % Neutrophils # 7.1 (1.3-7.7) k/uL Lymphocytes # 2.3 (1.0-4.8) k/uL Monocytes # 0.4 (0-1.0) k/uL Eosinophils # 0.3 (0-0.7) k/uL Basophils # 0.1 (0-0.2) k/uL PT 10.7 (9.0-12.0) sec INR 1.0 (<1.2) APTT 22.6 (22.0-30.0) sec D-Dimer 2.44 H (<0.60) mg/L FEU Sodium (137-145) mmol/L Potassium (3.5-5.1) mmol/L Chloride (98-107) mmol/L Carbon Dioxide (22-30) mmol/L Anion Gap mmol/L BUN (7-17) mg/dL Creatinine (0.52-1.04) mg/dL Est GFR (CKD-EPI)AfAm (>60 ml/min/1.73 sqM) Est GFR (CKD-EPI)NonAf (>60 ml/min/1.73 sqM) Glucose (74-99) mg/dL Plasma Lactic Acid Lit (0.7-2.0) mmol/L Calcium (8.4-10.2) mg/dL Total Bilirubin (0.2-1.3) mg/dL AST (14-36) U/L ALT (4-34) U/L Alkaline Phosphatase (38-126) U/L Troponin I (0.000-0.034) ng/mL NT-Pro-B Natriuret Pep pg/mL Total Protein (6.3-8.2) g/dL Albumin (3.5-5.0) g/dL HCG, Qual Coronavirus (PCR) Not Detected (Not Detectd) Influenza Type A RNA (Not Detectd) Influenza Type B (PCR) (Not Detectd) 10/23/21 10/23/21 10/23/21 Range/Units 13:33 13:33 13:33 WBC (3.8-10.6) k/uL RBC (3.80-5.40) m/uL Hgb (11.4-16.0) gm/dL Hct (34.0-46.0) % MCV (80.0-100.0) fL MCH (25.0-35.0) pg MCHC (31.0-37.0) g/dL RDW (11.5-15.5) % Plt Count (150-450) k/uL MPV Neutrophils % % Lymphocytes % % Monocytes % % Eosinophils % % Basophils % % Neutrophils # (1.3-7.7) k/uL Lymphocytes # (1.0-4.8) k/uL Monocytes # (0-1.0) k/uL Eosinophils # (0-0.7) k/uL Basophils # (0-0.2) k/uL PT (9.0-12.0) sec INR (<1.2) APTT (22.0-30.0) sec D-Dimer (<0.60) mg/L FEU Sodium 136 L (137-145) mmol/L Potassium 3.9 (3.5-5.1) mmol/L Chloride 105 (98-107) mmol/L Carbon Dioxide 24 (22-30) mmol/L Anion Gap 7 mmol/L BUN 10 (7-17) mg/dL Creatinine 0.63 (0.52-1.04) mg/dL Est GFR (CKD-EPI)AfAm >90 (>60 ml/min/1.73 sqM) Est GFR (CKD-EPI)NonAf >90 (>60 ml/min/1.73 sqM) Glucose 106 H (74-99) mg/dL Plasma Lactic Acid Lit 1.6 (0.7-2.0) mmol/L Calcium 10.0 (8.4-10.2) mg/dL Total Bilirubin 0.6 (0.2-1.3) mg/dL AST 23 (14-36) U/L ALT 17 (4-34) U/L Alkaline Phosphatase 63 (38-126) U/L Troponin I <0.012 (0.000-0.034) ng/mL NT-Pro-B Natriuret Pep pg/mL Total Protein 7.0 (6.3-8.2) g/dL Albumin 3.8 (3.5-5.0) g/dL HCG, Qual Not Detected Coronavirus (PCR) (Not Detectd) Influenza Type A RNA (Not Detectd) Influenza Type B (PCR) (Not Detectd) 10/23/21 10/23/21 Range/Units 13:33 13:33 WBC (3.8-10.6) k/uL RBC (3.80-5.40) m/uL Hgb (11.4-16.0) gm/dL Hct (34.0-46.0) % MCV (80.0-100.0) fL MCH (25.0-35.0) pg MCHC (31.0-37.0) g/dL RDW (11.5-15.5) % Plt Count (150-450) k/uL MPV Neutrophils % % Lymphocytes % % Monocytes % % Eosinophils % % Basophils % % Neutrophils # (1.3-7.7) k/uL Lymphocytes # (1.0-4.8) k/uL Monocytes # (0-1.0) k/uL Eosinophils # (0-0.7) k/uL Basophils # (0-0.2) k/uL PT (9.0-12.0) sec INR (<1.2) APTT (22.0-30.0) sec D-Dimer (<0.60) mg/L FEU Sodium (137-145) mmol/L Potassium (3.5-5.1) mmol/L Chloride (98-107) mmol/L Carbon Dioxide (22-30) mmol/L Anion Gap mmol/L BUN (7-17) mg/dL Creatinine (0.52-1.04) mg/dL Est GFR (CKD-EPI)AfAm (>60 ml/min/1.73 sqM) Est GFR (CKD-EPI)NonAf (>60 ml/min/1.73 sqM) Glucose (74-99) mg/dL Plasma Lactic Acid Lit (0.7-2.0) mmol/L Calcium (8.4-10.2) mg/dL Total Bilirubin (0.2-1.3) mg/dL AST (14-36) U/L ALT (4-34) U/L Alkaline Phosphatase (38-126) U/L Troponin I (0.000-0.034) ng/mL NT-Pro-B Natriuret Pep 375 pg/mL Total Protein (6.3-8.2) g/dL Albumin (3.5-5.0) g/dL HCG, Qual Coronavirus (PCR) (Not Detectd) Influenza Type A RNA Not Detected (Not Detectd) Influenza Type B (PCR) Not Detected (Not Detectd) - EKG Data -: EKG Interpreted by Me EKG Comments: 12-lead Electrocardiogram Interpretation Note EKG was reviewed and interpreted by myself. 12-lead ECG performed at 1316 is interpreted by me as revealing normal sinus rhythm at a rate of 91 beats per minute. Kennard is normal. MI interval is 129 ms, QRS duration is 15 ms, QTc is 424 ms.. There were no ST or T wave abnormalities to suggest myocardial ischemia or injury. R wave progression across the precordium was satisfactory. By my interpretation this EKG is non-diagnostic for acute ischemia. He does appear that there is some atrial enlargement as evident by the prominent P waves. Critical Care Time Critical Care Time: Yes Total Critical Care Time: 35 Critical Care Time: Upon my evaluation, this patient had a high probability of imminent or life- threatening deterioration due to bilateral pulmonary emboli on a heparin drip, which required my direct attention, intervention, and personal management. I have personally provided 35 minutes of critical care time exclusive of time spent on separately billable procedures. Time includes review of laboratory data, radiology results, discussion with consultants, and monitoring for potential decompensation. Interventions were performed as documented in my note. Disposition Clinical Impression: Bilateral pulmonary embolism Disposition: ADMITTED IP TO THIS HOSP Condition: Serious Referrals: Keith Prince DO [Primary Care Provider] - 1-2 days
[2021-10-23 13:45] LABS: Basophils # (A) 0.1 k/uL (0-0.2); Basophils % (A) 1 %; Eosinophils # (A) 0.3 k/uL (0-0.7); Eosinophils % (A) 3 %; HCT 40.5 % (34.0-46.0); HGB 13.9 gm/dL (11.4-16.0); Lymphocytes # (A) 2.3 k/uL (1.0-4.8); Lymphocytes % (A) 23 %; MCH 32.4 pg (25.0-35.0); MCHC 34.2 g/dL (31.0-37.0); MCV 94.5 fL (80.0-100.0); Mean Platelet Volume 7.8; Monocytes # (A) 0.4 k/uL (0-1.0); Monocytes % (A) 4 %; Neutrophils # (A) 7.1 k/uL (1.3-7.7); Neutrophils % (A) 69 %; Platelet Count 275 k/uL (150-450); RBC 4.28 m/uL (3.80-5.40); RDW 12.6 % (11.5-15.5); WBC 10.3 k/uL (3.8-10.6)
[2021-10-23 13:56] LABS: ALT 17 U/L (4-34); AST 23 U/L (14-36); African American GFR (CKD) >90 (>60 ml/min/1.73 sqM); Albumin 3.8 g/dL (3.5-5.0); Alkaline Phosphatase 63 U/L (38-126); Anion Gap 7 mmol/L; Blood Urea Nitrogen 10 mg/dL (7-17); Carbon Dioxide 24 mmol/L (22-30); Chloride 105 mmol/L (98-107); Glucose 106 mg/dL (74-99); Non-African American GFR(CKD) >90 (>60 ml/min/1.73 sqM); Potassium 3.9 mmol/L (3.5-5.1); Sodium 136 mmol/L (137-145); Total Bilirubin 0.6 mg/dL (0.2-1.3)
--- NOTE | 2021-10-23 14:00 | XR ---
EXAMINATION TYPE: XR chest 2V DATE OF EXAM: 10/23/2021 COMPARISON: 12/13/2016 HISTORY: 46-year-old female shortness of breath, difficulty breathing TECHNIQUE: PA and lateral views FINDINGS: Median sternotomy wires are present. Prosthetic cardiac valve. Heart appears upper limits of normal i n size. Atherosclerotic arch calcifications. Hazy densities relating to large patient body habitus. N o consolidation or pleural effusion. Bony vasculature within normal limits. IMPRESSION: Borderline heart size. Prosthetic cardiac valve. No definite acute process.
[2021-10-23 14:05] LABS: Partial Thromboplastin Time 22.6 sec (22.0-30.0); Prothrombin Time 10.7 sec (9.0-12.0)
[2021-10-23 14:07] LABS: HCG,Qualitative Serum Not Detected
--- NOTE | 2021-10-23 14:54 | US ---
EXAMINATION TYPE: US venous doppler duplex LE DATE OF EXAM: 10/23/2021 2:36 PM COMPARISON: NONE CLINICAL HISTORY: evaluate for dvt. Swelling. SIDE PERFORMED: Bilateral TECHNIQUE: The lower extremity deep venous system is examined utilizing real time linear array sonog maricruz with graded compression, doppler sonography and color-flow sonography. VESSELS IMAGED: Common Femoral Vein Deep Femoral Vein Greater Saphenous Vein * Femoral Vein Popliteal Vein Small Saphenous Vein * Proximal Calf Veins (* superficial vessels) Morbidly obese patient, technically difficult study. Right Leg: Appears negative for DVT. Left Leg: Appears negative for DVT. Grayscale, color doppler, spectral doppler imaging performed of the deep veins of the bilateral lower extremities. There is normal flow, compressibility, vascular waveforms. IMPRESSION: Suboptimal study without acute DVT clearly seen in either lower extremity.
[2021-10-23] MEDS ORDERED: KETOROLAC 15 MG/ML 1 ML VIAL IVP STA (14:58)
--- NOTE | 2021-10-23 16:46 | CT ---
EXAMINATION TYPE: CT chest angio for PE DATE OF EXAM: 10/23/2021 COMPARISON: No previous CT scan is available for comparison. HISTORY: chest pain, SOB CT DLP: 1052.2 mGy.cm. Automated Exposure Control for Dose Reduction was Utilized. TECHNIQUE AND CONTRAST: CTA scan of the thorax is performed with IV Contrast, patient injected with 80cc mL of Isovue 370, pu lmonary embolism protocol. MIP Images are created on CT scanner and reviewed. FINDINGS: Suboptimal CT scan with artifactual images. Filling defects are seen within the lower lobe pulmonary artery bilaterally with extension into the segmental and subsegmental branches suggestive of pulmonar y emboli. Questionable similar pulmonary emboli are seen in the subsegmental branches of the right up per lobe and lingula. No definite pulmonary emboli seen in the pulmonary trunk or the main pulmonary arteries. The pulmonar y trunk measures up to 3.2 cm. Straightening of the interventricular septum which may suggest right c ardiac strain, please correlate with echocardiographic results. Aortic valve prosthesis with previous sternotomy wire sutures. No gross cardiomegaly. Minimal subsegm ental atelectasis are seen in the upper lung lobes. Patent central airways. No pleural or pericardial effusion. No pathologically enlarged lymph nodes in the chest. Gastric band device is seen at the gastroesophag eal junction. Previous cholecystectomy. Mild degenerative changes of the thoracic spine. No aggressiv e bone lesion. IMPRESSION: Suboptimal CTA with artifactual images. With this limitation, the described filling defects within th e lower lobe pulmonary arteries are suggestive of pulmonary emboli. No definite pulmonary emboli are seen within the pulmonary trunk or the main pulmonary arteries. Ques tionable right cardiac strain, please correlate with echocardiographic results. Repeat CT scan can be considered if clinically required. Other incidental findings as detailed above. Findings were discussed with the referring physician at 4:40 PM on 10/23/2021.
[2021-10-23] MEDS ORDERED: HEPARIN SODIUM 1,000 UN/ML (10ML VL) IV ONE (16:52)
[2021-10-23] MEDS ORDERED: HEPARIN SODIUM 1,000 UN/ML (10ML VL) IV PRN (16:52)
[2021-10-23] MEDS ORDERED: LORazepam 0.5 MG TAB PO STA (16:52)
[2021-10-23] MEDS ORDERED: NALOXONE 0.4 MG/ML 1 ML VIAL IV PRN (16:54)
[2021-10-23] MEDS ORDERED: MORPHINE SULFATE 4 MG/ML SYRINGE IV PRN (16:54)
[2021-10-23] MEDS ORDERED: PANTOPRAZOLE 40 MG TABLET PO PRN (17:02)
[2021-10-23] MEDS: HEPARIN SOD,PORK IN 0.45% NACL 25,000 UNIT in 0.45% NACL 1 250ML.BAG IV SCH (18:48)
[2021-10-23] MEDS: METOPROLOL SUCCINATE (ER) 100 MG TAB.ER.24H PO SCH (21:15)
[2021-10-23] MEDS: LOSARTAN 50 MG TAB PO SCH (21:41)
[2021-10-24] MEDS: LEVOTHYROXINE 75 MCG TAB PO SCH (06:17)
[2021-10-24] MEDS: HEPARIN SOD,PORK IN 0.45% NACL 25,000 UNIT in 0.45% NACL 1 250ML.BAG IV SCH ×2 (06:18→20:03)
[2021-10-24 07:38] LABS: Basophils % (A) 1 %; Eosinophils # (A) 0.2 k/uL (0-0.7); Eosinophils % (A) 3 %; HCT 40.2 % (34.0-46.0); HGB 13.4 gm/dL (11.4-16.0); Lymphocytes # (A) 2.2 k/uL (1.0-4.8); Lymphocytes % (A) 31 %; MCH 31.8 pg (25.0-35.0); MCHC 33.4 g/dL (31.0-37.0); MCV 95.5 fL (80.0-100.0); Mean Platelet Volume 8.5; Monocytes # (A) 0.3 k/uL (0-1.0); Monocytes % (A) 4 %; Neutrophils # (A) 4.3 k/uL (1.3-7.7); Neutrophils % (A) 59 %; Platelet Count 280 k/uL (150-450); RBC 4.22 m/uL (3.80-5.40); RDW 13.3 % (11.5-15.5); WBC 7.3 k/uL (3.8-10.6)
[2021-10-24 07:57] LABS: African American GFR (CKD) >90 (>60 ml/min/1.73 sqM); Anion Gap 7 mmol/L; Blood Urea Nitrogen 14 mg/dL (7-17); Carbon Dioxide 21 mmol/L (22-30); Chloride 109 mmol/L (98-107); Glucose 105 mg/dL (74-99); Magnesium 1.7 mg/dL (1.6-2.3); Non-African American GFR(CKD) >90 (>60 ml/min/1.73 sqM); Potassium 3.9 mmol/L (3.5-5.1); Sodium 137 mmol/L (137-145)
[2021-10-24] MEDS: hydroCHLOROthiazide 25 MG TAB PO SCH (09:06)
[2021-10-24] MEDS: ASPIRIN 81 MG PO SCH (09:06)
[2021-10-24] MEDS: ESCITALOPRAM 20 MG TAB PO SCH (09:06)
--- NOTE | 2021-10-24 09:51 | P.CRDCN ---
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 Covid-19 in January 2021. Fully vaccinated received J&J booster in August 2021. She follows with [facility] at [facility]. We have been consu lted for bilateral pulmonary emboli. Patient presents to emergency department complaining of worsening exertional shortness of breath that is getting worse over the last week. She also had symptoms of lightheadedness. She felt as if she could not walk to the bathroom without feeling increase shortness of breath. She also had associated lightheadedness. She initially went to her PCP appointment and recommended that patient be evaluated in the emergency department. CTA revealed bilateral pulmonary emboli with questionable right heart strain. She denies any prolonged sedentary activity or prolonged travel. Patient denies any chest pain, lightheadedness, dizziness, syncope or near syncope. She denies any symptoms of orthopnea or PND. She denies history of PE/DVTs, hematological disorders, OK, CAD, heart failure, Stroke, Diabetes, or dyslipidemia. Family history includes father had an OK in his 40s. No known family history of hematological disorders. DIAGNOSTICS EKG reveals sinus rhythm, heart rate 91, T wave inversion in leads aVL, V2 and V3, incomplete right bundle-branch block, no significant ST-T wave change abnormalities Telemetry tracings indicate sinus mechanism, heart rate 70s90s CT chest revealed suboptimal CTA with artifactual images. Filling defects are seen within the lower lobe pulmonary artery bilaterally with extension into segmental and subsegmental branches suggestive of pulmonary emboli. Questionable similar pulmonary emboli are seen in the sub-segmental branches of the right upper lobe and lingula. Questionable right heart strain. Laboratory reviewed, CBC unremarkable, d-dimer 2.4, troponin negative, proBNP 375, sodium 137, potassium 3.9, BUN 14, serum troponin 0.6, magnesium 1.7, influenza Covid negative Current cardiac medications include hydrochlorothiazide 25 mg daily, metoprolol succinate 100 mg nightly, losartan 100 mg nightly, aspirin 81 mg daily REVIEW OF SYSTEMS At the time of my exam: CONSTITUTIONAL: Denies fever or chills. CARDIOVASCULAR: Denies chest pain, +shortness of breath, Denies orthopnea, PND or palpitations. RESPIRATORY: Denies cough. GASTROINTESTINAL: Denies abdominal pain, diarrhea, constipation, nausea or vomiting. MUSCULOSKELETAL: Denies myalgias. NEUROLOGIC: Denies numbness, tingling, headacbe or weakness. ENDOCRINE: Denies fatigue, weight change, polydipsia or polyurina. GENITOURINARY: Denies burning, hematuria or urgency with micturation. HEMATOLOGIC: Denies history of anemia or bleeding. PHYSICAL EXAMINATION Blood pressure 120/56, heart rate 64, afebrile, oxygen saturations 96% on room air CONSTITUTIONAL: No apparent distress. HEENT: Head is normocephalic. Pupils are equal, round. Sclerae anicteric. Mucous membranes of the mouth are moist. No JVD. No carotid bruit. CHEST EXAMINATION: Lungs bilateral wheezing to auscultation. No chest wall tenderness is noted on palpation or with deep breathing. HEART EXAMINATION: Regular rate and rhythm. S1, S2 heard. Systolic ejectino murmur ABDOMEN: Soft, nontender. Positive bowel sounds. EXTREMITIES: 2+ peripheral pulses, no lower extremity edema and no calf tenderness. NEUROLOGIC EXAMINATION: Patient is awake, alert and oriented x3. ASSESSMENT Bilateral Pulmonary emboli Hypertensino History of aortic valve and Tricuspid valve replacement in 2014 and 2016 Hypothroidism GERD Asthma PLAN Obtain 2D echocardiogram and doppler study to assess cardiac structure and function. Continue IV heparin drip We will obtain Records [facility] Continue patient's home medications aspirin, hydrochlorothiazide, losartan and metoprolol Further recommendations based on echocardiogram report and clinical course Nurse practitioner note has been reviewed by physician. Signing provider agrees with the documented findings, assessment, and plan of care. Past Medical History Past Medical History: Asthma, GERD/Reflux, Hyperlipidemia, Hypertension, Thyroid Disorder Additional Past Medical History / Comment(s): heart murmur. defects with heart at . History of Any Multi-Drug Resistant Organisms: None Reported Past Surgical History: Adenoidectomy, Bariatric Surgery, Cardiac Valve Replacement, Section, Cholecystectomy, Heart Catheterization, Tonsillectomy Additional Past Surgical History / Comment(s): lap band. open heart aug 2015, april 2017. cow valve - main aortic valve. bicupsid valve. Past Anesthesia/Blood Transfusion Reactions: No Reported Reaction Past Psychological History: Anxiety Smoking Status: Light tobacco smoker, Vaper Past Alcohol Use History: None Reported Past Drug Use History: None Reported - Past Family History Father Family Medical History: Coronary Artery Disease (CAD), Diabetes Mellitus, Hypertension Additional Family Medical History / Comment(s): at 47 Heart issues Medications and Allergies Home Medications Medication Instructions Recorded Confirmed Type Levothyroxine Sodium [Synthroid] 75 mcg PO QAM 02/05/14 10/23/21 History Cyanocobalamin [Vitamin B-12] 2,000 mcg PO DAILY@1200 03/18/15 10/23/21 History ALPRAZolam [Xanax] 1 mg PO TID PRN 03/20/21 10/23/21 History Albuterol Sulfate [Proventil Hfa] 1 puff INHALATION Q4-6H PRN 03/20/21 10/23/21 History Aspirin [Adult Low Dose Aspirin EC] 81 mg PO DAILY 03/20/21 10/23/21 History Cholecalciferol [Vitamin D3 (25 125 mcg PO DAILY 03/20/21 10/23/21 History Mcg = 1000 Iu)] Losartan [Cozaar] 100 mg PO HS 03/20/21 10/23/21 History Omeprazole 20 mg PO DAILY PRN 03/20/21 10/23/21 History hydroCHLOROthiazide [Hydrodiuril] 25 mg PO QAM 03/20/21 10/23/21 History traMADol HCL [Ultram] 50 mg PO Q6HR PRN 03/20/21 10/23/21 History Etonogestrel [Nexplanon] 1 implant SQ [id number] 03/31/21 10/23/21 History Metoprolol Succinate (ER) [Toprol 100 mg PO HS 03/31/21 10/23/21 History Xl] Escitalopram [Lexapro] 20 mg PO DAILY 10/23/21 10/23/21 History Famotidine [Pepcid] 20 mg PO DAILY PRN 10/23/21 10/23/21 History Allergies Allergy/AdvReac Type Severity Reaction Status Date / Time Sulfa (Sulfonamide Allergy Rash/Hives Verified 10/23/21 14:48 Antibiotics) Physical Exam Vitals: Vital Signs Temp Pulse Pulse Resp BP BP Pulse Ox 10/24/21 04:00 98.0 F 64 16 125/56 96 10/24/21 02:00 85 20 10/23/21 22:35 97.9 F 85 20 136/71 97 10/23/21 21:52 124/74 10/23/21 21:00 97.4 F L 93 17 136/74 93 L 10/23/21 18:33 93 18 143/75 96 10/23/21 16:07 94 20 137/97 96 10/23/21 12:56 98.4 F 90 18 131/105 98 Intake and Output 10/23/21 10/24/21 10/24/21 22:59 06:59 14:59 Intake Total 247.604 Balance 247.604 Intake: Intake, IV Titration 247.604 Amount Heparin Sod,Pork in 0.45% 247.604 NaCl 25,000 unit In 0.45 % NaCl 1 250ml.bag @ 17. 425 UNITS/KG/HR 23 mls/hr IV .[id number] [facility] Rx#: [id number] Other: Voiding Method Toilet Weight 131.995 kg Results 10/24/21 06:36 10/24/21 06:36 Cardiac Enzymes 10/23/21 10/23/21 Range/Units 13:33 13:33 AST 23 (14-36) U/L Troponin I <0.012 (0.000-0.034) ng/mL Coagulation 10/23/21 10/23/21 Range/Units 13:33 22:34 PT 10.7 (9.0-12.0) sec APTT 22.6 78.6 H (22.0-30.0) sec CBC 10/23/21 Range/Units 13:33 WBC 10.3 (3.8-10.6) k/uL RBC 4.28 (3.80-5.40) m/uL Hgb 13.9 (11.4-16.0) gm/dL Hct 40.5 (34.0-46.0) % Plt Count 275 (150-450) k/uL Comprehensive Metabolic Panel 10/23/21 Range/Units 13:33 Sodium 136 L (137-145) mmol/L Potassium 3.9 (3.5-5.1) mmol/L Chloride 105 (98-107) mmol/L Carbon Dioxide 24 (22-30) mmol/L BUN 10 (7-17) mg/dL Creatinine 0.63 (0.52-1.04) mg/dL Glucose 106 H (74-99) mg/dL Calcium 10.0 (8.4-10.2) mg/dL AST 23 (14-36) U/L ALT 17 (4-34) U/L Alkaline Phosphatase 63 (38-126) U/L Total Protein 7.0 (6.3-8.2) g/dL Albumin 3.8 (3.5-5.0) g/dL Current Medications Generic Name Dose Route Start Last Admin Trade Name Freq PRN Reason Stop Dose Admin Albuterol Sulfate 2.5 mg 10/23/21 17:02 Albuterol Nebulized 2.5 Mg/3 Ml INHALATION Q4H PRN Wheezing Aspirin 81 mg 10/24/21 09:00 Aspirin 81 Mg PO DAILY [facility] Escitalopram Oxalate 20 mg 10/24/21 09:00 Escitalopram 20 Mg Tab PO DAILY [facility]I Heparin Sodium (Porcine) 0 unit 10/23/21 16:52 Heparin Sodium 1,000 Un/Ml (10ml Vl) IV PER PROTOCOL PRN Low PTT Protocol Hydrochlorothiazide 25 mg 10/24/21 09:00 Hydrochlorothiazide 25 Mg Tab PO QAM HAI Heparin Sodium/Sodium Chloride 250 mls @ 23 mls/hr 10/23/21 17:00 10/24/21 06:18 25,000 unit/ Sodium Chloride IV 15.425 units/kg/hr .[id number] HAI 20.36 mls/hr Administration Protocol 17.425 UNITS/KG/HR Levothyroxine Sodium 75 mcg 10/24/21 06:30 10/24/21 06:17 Levothyroxine 75 Mcg Tab PO 75 mcg QAM@0630 HAI Administration Losartan Potassium 100 mg 10/23/21 21:00 10/23/21 21:41 Losartan 50 Mg Tab PO 100 mg HS HAI Administration Metoprolol Succinate 100 mg 10/23/21 21:00 10/23/21 21:15 Metoprolol Succinate (Er) 100 Mg Tab.Er.24h PO 100 mg HS HAI Administration Morphine Sulfate 4 mg 10/23/21 16:54 Morphine Sulfate 4 Mg/Ml Syringe IV Q4HR PRN Severe Pain Naloxone HCl 0.2 mg 10/23/21 16:54 Naloxone 0.4 Mg/Ml 1 Ml Vial IV Q2M PRN Opioid Reversal Pantoprazole Sodium 40 mg 10/23/21 17:02 Pantoprazole 40 Mg Tablet PO DAILY PRN gerd Intake and Output 10/23/21 10/24/21 10/24/21 22:59 06:59 14:59 Intake Total 247.604 Balance 247.604 Intake: Intake, IV Titration 247.604 Amount Heparin Sod,Pork in 0.45% 247.604 NaCl 25,000 unit In 0.45 % NaCl 1 250ml.bag @ 17. 425 UNITS/KG/HR 23 mls/hr IV .[id number] [facility] Rx#: [id number] Other: Voiding Method Toilet Weight 131.995 kg 10/23/21 13:33 10/23/21 13:33
[2021-10-24] MEDS: ALBUTEROL NEBULIZED 2.5 MG/3 ML INHALATION PRN ×2 (10:15→15:59)
--- NOTE | 2021-10-24 11:48 | P.CNPUL ---
History of Present Illness Consult date: 10/24/21 Requesting physician: Leonel Valenzuela Reason for consult: dyspnea, hypoxemia, pulmonary embolism, abnormal CXR/CT Chief complaint: Shortness of breath. History of present illness: Pulmonary consult dated 10/24/2021. 46-year-old female who presents to the emergency department, on October 23, com plaining of shortness of breath. The patient does have a history of valvular heart disease, with aortic valve and tricuspid valve replacement, as well as acid reflux disease, and asthma. Over the last couple of days, her shortness of breath has gotten worse. She denies any fever or chills. No cough or phlegm production. She denies any chest pain. The patient had a workup in the emergency room, and was found to have an elevated d-dimer. The patient had a CT angiogram, which showed filling defects in the lower lobe pulmonary arteries. There is no central pulmonary emboli. There is questionable right cardiac strain. Dopplers of the lower extremities are negative. The patient is vacci nated. The pulmonary emboli appear to be unprovoked. Is not particularly active. She has been smoking cigarettes for about 30 years. Her primary care physician is Dr. Prince. Currently, she is on saline at 20 mL an hour, no supplemental oxygen, and IV heparin. CBC is completely normal. PTT is 64.1. D-dimer was 2.44. Sodium 137, potassium 3.9, chlorides 109, CO2 21, anion gap 7, BUN 14, and creatinine 0.65. Review of Systems REVIEW OF SYSTEMS: CONSTITUTIONAL: [Negative.] NEUROLOGIC: [ Negative.] HEENT: [ Negative.] CARDIAC: [Negative.] PULMONARY: Shortness of breath. GI: [Negative.] : [Negative.] RHEUMATOLOGIC: [ Negative.] IMMUNOLOGIC: [ Negative.] ENDOCRINE: [Negative. ] DERMATOLOGIC: [Negative.] Past Medical History Past Medical History: Asthma, GERD/Reflux, Hyperlipidemia, Hypertension, Thyroid Disorder Additional Past Medical History / Comment(s): heart murmur. defects with heart at . History of Any Multi-Drug Resistant Organisms: None Reported Past Surgical History: Adenoidectomy, Bariatric Surgery, Cardiac Valve Replacement, Section, Cholecystectomy, Heart Catheterization, Tonsillectomy Additional Past Surgical History / Comment(s): lap band. open heart aug 2015, april 2017. cow valve - main aortic valve. bicupsid valve. Past Anesthesia/Blood Transfusion Reactions: No Reported Reaction Past Psychological History: Anxiety Smoking Status: Light tobacco smoker, Vaper Past Alcohol Use History: None Reported Past Drug Use History: None Reported - Past Family History Father Family Medical History: Coronary Artery Disease (CAD), Diabetes Mellitus, Hypertension Additional Family Medical History / Comment(s): at 47 Heart issues Medications and Allergies Home Medications Medication Instructions Recorded Confirmed Type Levothyroxine Sodium [Synthroid] 75 mcg PO QAM 02/05/14 10/23/21 History Cyanocobalamin [Vitamin B-12] 2,000 mcg PO DAILY@1200 03/18/15 10/23/21 History ALPRAZolam [Xanax] 1 mg PO TID PRN 03/20/21 10/23/21 History Albuterol Sulfate [Proventil Hfa] 1 puff INHALATION Q4-6H PRN 03/20/21 10/23/21 History Aspirin [Adult Low Dose Aspirin EC] 81 mg PO DAILY 03/20/21 10/23/21 History Cholecalciferol [Vitamin D3 (25 125 mcg PO DAILY 03/20/21 10/23/21 History Mcg = 1000 Iu)] Losartan [Cozaar] 100 mg PO HS 03/20/21 10/23/21 History Omeprazole 20 mg PO DAILY PRN 03/20/21 10/23/21 History hydroCHLOROthiazide [Hydrodiuril] 25 mg PO QAM 03/20/21 10/23/21 History traMADol HCL [Ultram] 50 mg PO Q6HR PRN 03/20/21 10/23/21 History Etonogestrel [Nexplanon] 1 implant SQ [id number] 03/31/21 10/23/21 History Metoprolol Succinate (ER) [Toprol 100 mg PO HS 03/31/21 10/23/21 History Xl] Escitalopram [Lexapro] 20 mg PO DAILY 10/23/21 10/23/21 History Famotidine [Pepcid] 20 mg PO DAILY PRN 10/23/21 10/23/21 History Allergies Allergy/AdvReac Type Severity Reaction Status Date / Time Sulfa (Sulfonamide Allergy Rash/Hives Verified 10/23/21 14:48 Antibiotics) Physical Exam Osteopathic Statement: *. No significant issues noted on an osteopathic structural exam other than those noted in the History and Physical/Consult. Vitals: Vital Signs Temp Pulse Pulse Resp BP BP Pulse Ox 10/24/21 10:27 76 10/24/21 10:15 76 10/24/21 08:00 98.3 F 81 18 131/76 95 10/24/21 04:00 98.0 F 64 16 125/56 96 10/24/21 02:00 85 20 10/23/21 22:35 97.9 F 85 20 136/71 97 10/23/21 21:52 124/74 10/23/21 21:00 97.4 F L 93 17 136/74 93 L 10/23/21 18:33 93 18 143/75 96 10/23/21 16:07 94 20 137/97 96 10/23/21 12:56 98.4 F 90 18 131/105 98 Intake and Output 10/23/21 10/24/21 10/24/21 22:59 06:59 14:59 Intake Total 247.604 118 Balance 247.604 118 Intake: Intake, IV Titration 247.604 Amount Heparin Sod,Pork in 0.45% 247.604 NaCl 25,000 unit In 0.45 % NaCl 1 250ml.bag @ 17. 425 UNITS/KG/HR 23 mls/hr IV .[id number] [facility] Rx#: [id number] Oral 118 Other: Voiding Method Toilet Toilet # Voids 2 Weight 131.995 kg No acute distress, oriented 3. No obvious respiratory distress. Patient is currently on no supplemental oxygen. HEENT examination is grossly unremarkable. Neck supple. Full range of motion. No adenopathy thyromegaly or neck vein distention. Cardiovascular examination reveals regular rhythm rate. S1-S2 normal. No S3 or S4. No discernible murmur noted. Heart rate 76 bpm. Lungs reveal clear breath sounds. Breath sounds are equal bilaterally. No adventitious lung sounds including wheezes rhonchi or crackles. Room air saturation 95%. Abdomen soft bowel sounds are heard. No masses or tenderness. Extremities are intact. No cyanosis clubbing or edema. Skin is without rash or lesion. Neurologic examination is brief but nonfocal. Results - Laboratory Findings CBC and BMP: 10/24/21 06:36 10/24/21 06:36 PT/INR, D-dimer PT 10.7 sec (9.0-12.0) 10/23/21 13:33 INR 1.0 (<1.2) 10/23/21 13:33 D-Dimer 2.44 mg/L FEU (<0.60) H 10/23/21 13:33 Abnormal lab findings: Abnormal Labs 10/23/21 10/23/21 10/23/21 13:33 13:33 22:34 APTT 78.6 H D-Dimer 2.44 H Sodium 136 L Chloride Carbon Dioxide Glucose 106 H 10/24/21 10/24/21 06:36 06:36 APTT 64.1 H D-Dimer Sodium Chloride 109 H Carbon Dioxide 21 L Glucose 105 H - Diagnostic Findings Chest x-ray: image reviewed CT scan - chest: image reviewed U/S of Legs: image reviewed Assessment and Plan Assessment: Acute pulmonary embolism, unprovoked. No evidence of DVT on lower extremity Doppler. History of valvular heart disease, status post aortic valve and tricuspid valve replacement. Morbid obesity, status post lap band procedure, 2014. Gastroesophageal reflux disease. Hypothyroidism. History of ongoing tobacco use with nicotine addiction. History of anxiety. Plan: Plan dated 10/24/2021. The patient does not appear to be in any respiratory distress. Patient is not on any supplemental oxygen. When I was called from the ER last night, I recommended a cardiology and vascular surgery evaluation. She has been seen by cardiology not by vascular surgery. She remains on IV heparin. The patient could likely be transitioned to a factor X a inhibitor. He does not appear that she is a candidate for EKOS. Additional recommendations and suggestions are forthcoming. This appears to be an unprovoked pulmonary embolism. The patient should be treated for 6 months. I'll be happy to see her in the office after discharge. Time with Patient: Greater than 30
--- NOTE | 2021-10-24 12:00 | ECHOF ---
Referral Reason:ASSES RIGHT HEART STRAIN MEASUREMENTS -------- HEIGHT: 160.0 cm WEIGHT: 132.0 kg BP: 125/56 RVIDd: 2.7 cm (< 3.3) IVSd: 1.5 cm (0.6 - 1.1) LVIDd: 3.4 cm (3.9 - 5.3) LVPWd: 1.4 cm (0.6 - 1.1) IVSs: 1.7 cm LVIDs: 2.6 cm LVPWs: 1.8 cm LA Diam: 3.2 cm (2.7 - 3.8) Ao Diam: 2.4 cm (2.0 - 3.7) MV EXCURSION: 10.065 mm (> 18.000) MV EF SLOPE: 28 mm/s (70 - 150) EPSS: 0.7 cm MV E Manolo: 1.20 m/s MV DecT: 318 ms MV A Manolo: 1.04 m/s MV E/A Ratio: 1.16 AV maxP.41 mmHg AV meanP.38 mmHg RAP: 5.00 mmHg RVSP: 28.76 mmHg TAPSE: 19.21 mm FINDINGS -------- Sinus rhythm. This was a technically adequate study. The left ventricular size is normal. There is moderate concentric left ventricular hypertrophy. O verall left ventricular systolic function is normal with, an EF between 55 - 60 %. The right ventricle is normal in size. The right ventricular systolic function is normal. The left atrium is normal in size. The right atrial size is normal. Interatrial and interventricular septum intact. The aortic valve was not well visualized. Peak/mean gradient across the Aortic Valve is 14.41mmHg / 6.38mmHg. The mitral valve is normal. There is trace to mild mitral regurgitation. The tricuspid valve appears structurally normal. Mild tricuspid regurgitation present. Right vent ricular systolic pressure is normal at < 35 mmHg. Trace/mild (physiologic) pulmonic regurgitation. The aortic root size is normal. Normal inferior vena cava with normal inspiratory collapse consistent with estimated right atrial pre ssure of 5 mmHg. There is no pericardial effusion. CONCLUSIONS -------- 1. There is moderate concentric left ventricular hypertrophy. 2. Overall left ventricular systolic function is normal with, an EF between 55 - 60 %. 3. The right ventricle is normal in size. 4. The right ventricular systolic function is normal. 5. The aortic valve was not well visualized. 6. Peak/mean gradient across the Aortic Valve is 14.41mmHg / 6.38mmHg. 7. There is trace to mild mitral regurgitation. 8. Mild tricuspid regurgitation present. 9. Trace/mild (physiologic) pulmonic regurgitation. 10. There is no pericardial effusion. FINANCIAL RESERVE CLERK: Nidhi Moulton RDCS
--- NOTE | 2021-10-24 12:01 | P.HPIM ---
History of Present Illness H&P Date: 10/24/21 HISTORY OF PRESENT ILLNESS This is a 46-year-old female patient of Dr. Prince with past medical history of hypertension, aortic valve and tricuspid valve replacement in 2015 and 17 with tissue valves, hypothyroidism, gastroesophageal reflux disease, mild intermittent asthma, Covid 19 01/2021, active tobacco use and control use. Patient presented to the emergency center complaining of shortness of breath that been getting worse over the past week, exertional dyspnea along with cough and minimal sputum production. She also complains of midthoracic back pain has been going on for one week. She denies any orthopnea or paroxysmal nocturnal dyspnea. She denies being bedridden. She saw her PCP and d-dimer was elevated the patient was sent in for further evaluation. She was found to be afebrile, heart rate 90, blood pressure initially 131/105. Pulse ox 90% on room air. EKG is sinus rhythm, T-wave inversions in aVL, V2 and V3, incomplete right bundle br anch block. CBC was unremarkable. INR 1.0. D-dimer 2.44. Chronic virus PCR not detected. Electrolytes and renal function unremarkable. Lactic acid 1.6. Calcium 10. Liver function tests normal. Troponin negative. HCG not detected. ProBNP 375. Influenza A and influenza B not detected. CTA of the chest was suboptimal, filling defects within the lower lobe pulmonary arteries suggestive of pulmonary emboli. No definite pulmonary emboli seen within pulmonary trunk or main pulmonary arteries. Questionable right cardiac strain. Ultrasound of the bilateral lower extremity negative for DVT. Patient was started on heparin drip and consults requested for pulmonary medicine, cardiology, vascular surgery. Echocardiogram has been obtained and report is pending. REVIEW OF SYSTEMS Constitutional: No fever, no chills, no night sweats. No weight change. No weakness, fatigue or lethargy. No daytime sleepiness. EENT: No headache. No blurred vision or double vision, no loss of vision. No loss of Hearing, no ringing in the ears, no dizziness. No nasal drainage or congestion. No epistaxis. No sore throat. Lungs: No shortness of breath, cough, no sputum production. No wheezing. Cardiovascular: No chest pain, no lower extremity edema. No palpitations. No paroxysmal nocturnal dyspnea. No orthopnea. No lightheadedness or dizziness. No syncopal episodes. Abdominal: No abdominal pain. No nausea, vomiting. No diarrhea. No constipation. No bloody or tarry stools. No loss of appetite. Genitourinary: No dysuria, increased frequency, urgency. No urinary retention. Musculoskeletal: No myalgias. No muscle weakness, no gait dysfunction, no frequent falls. Reports thoracic back pain. No neck pain. Integumentary: No wounds, no lesions. No rash or pruritus. No unusual bruising. No change in hair or nails. Neurologic: No aphasia. No facial droop. No change in mentation. No head injury. No headache. No paralysis. No paresthesia. Psychiatric: No depression. No anxiety. No mood swings. Endocrine: No abnormal blood sugars. No weight change. No excessive sweating or thirst. No cold intolerance. SOCIAL HISTORY Patient is a smoker one pack per day for 30 years and she also vapes occasionally. She denies any marijuana use or illicit drug use. She drinks alcohol one time per week 6-7 mixed drinks. FAMILY HISTORY Mother is alive at age 68 with no major medical problems. Father at age 57 from myocardial infarction with history of three-vessel CABG. Patient denies any medical problems with her siblings. She has one daughter with no major medical problems. PHYSICAL EXAMINATION Gen: This is morbid obese 46-year-old female. Patient is resting in bed and appears to be in no acute distress. HEENT: Head is atraumatic, normocephalic. Pupils equal, round. Sclerae is anicteric. NECK: Supple. No JVD. No lymphadenopathy. No thyromegaly. LUNGS: Bilateral wheezes or rhonchi. No intercostal retractions. HEART: Regular rate and rhythm. Systolic ejection murmur. ABDOMEN: Soft. Bowel sounds are present. No masses. No tenderness. EXTREMITIES: No pedal edema. No calf tenderness. Dorsalis pedis +2 bilaterally. NEUROLOGICAL: Patient is awake, alert and oriented x3. Cranial nerves 2 through 12 are grossly intact. ASSESSMENT AND PLAN 1. Acute bilateral pulmonary emboli with contributing factors of Nexplanon use, active tobacco use, previous Covid 19. Patient started on heparin drip. Echocardiogram report is pending. Consults in place with pulmonary medicine, cardiology, vascular surgery. Recommend that patient have Nexplanon subdernal removed at her developer advocate as an outpatient. Smoking cessation. 2. Hypertension. Continue hydrochlorothiazide 25 mg daily, losartan 100 mg at bedtime, Toprol-XL 100 mg at bedtime 3. History of aortic valve and tricuspid valve replacement. 4. Hypothyroidism. Continue levothyroxine 75 g daily. 5. Gastroesophageal reflux disease and GI prophylaxis. Continue Protonix 40 mg daily. 6. Moderate intermittent asthma. Continue albuterol nebulizer every 4 hours as needed. 7. Recurrent depression. Continue Lexapro 20 mg daily. 8. Tobacco use and dependence. She denies need for nicotine patch. Discussed smoking cessation. 9. DVT prophylaxis. Heparin. Patient will be admitted to the hospital for a minimum of 2 night stay. DISCHARGE PLAN Home. Impression and plan of care have been directed as dictated by the signing physician. Nani Magaña nurse practitioner acting as scribe for signing physician. Past Medical History Past Medical History: Asthma, GERD/Reflux, Hyperlipidemia, Hypertension, Thyroid Disorder Additional Past Medical History / Comment(s): heart murmur. defects with heart at . History of Any Multi-Drug Resistant Organisms: None Reported Past Surgical History: Adenoidectomy, Bariatric Surgery, Cardiac Valve Replacement, Section, Cholecystectomy, Heart Catheterization, Tonsillectomy Additional Past Surgical History / Comment(s): lap band. open heart aug 2015, april 2017. cow valve - main aortic valve. bicupsid valve. Past Anesthesia/Blood Transfusion Reactions: No Reported Reaction Past Psychological History: Anxiety Smoking Status: Light tobacco smoker, Vaper Past Alcohol Use History: None Reported Past Drug Use History: None Reported - Past Family History Father Family Medical History: Coronary Artery Disease (CAD), Diabetes Mellitus, Hyper tension Additional Family Medical History / Comment(s): at 47 Heart issues Medications and Allergies Home Medications Medication Instructions Recorded Confirmed Type Levothyroxine Sodium [Synthroid] 75 mcg PO QAM 02/05/14 10/23/21 History Cyanocobalamin [Vitamin B-12] 2,000 mcg PO DAILY@1200 03/18/15 10/23/21 History ALPRAZolam [Xanax] 1 mg PO TID PRN 03/20/21 10/23/21 History Albuterol Sulfate [Proventil Hfa] 1 puff INHALATION Q4-6H PRN 03/20/21 10/23/21 History Aspirin [Adult Low Dose Aspirin EC] 81 mg PO DAILY 03/20/21 10/23/21 History Cholecalciferol [Vitamin D3 (25 125 mcg PO DAILY 03/20/21 10/23/21 History Mcg = 1000 Iu)] Losartan [Cozaar] 100 mg PO HS 03/20/21 10/23/21 History Omeprazole 20 mg PO DAILY PRN 03/20/21 10/23/21 History hydroCHLOROthiazide [Hydrodiuril] 25 mg PO QAM 03/20/21 10/23/21 History traMADol HCL [Ultram] 50 mg PO Q6HR PRN 03/20/21 10/23/21 History Etonogestrel [Nexplanon] 1 implant SQ [id number] 03/31/21 10/23/21 History Metoprolol Succinate (ER) [Toprol 100 mg PO HS 03/31/21 10/23/21 History Xl] Escitalopram [Lexapro] 20 mg PO DAILY 10/23/21 10/23/21 History Famotidine [Pepcid] 20 mg PO DAILY PRN 10/23/21 10/23/21 History Allergies Allergy/AdvReac Type Severity Reaction Status Date / Time Sulfa (Sulfonamide Allergy Rash/Hives Verified 10/23/21 14:48 Antibiotics) Physical Exam Vitals: Vital Signs Temp Pulse Pulse Resp BP BP Pulse Ox 10/24/21 10:27 76 10/24/21 10:15 76 10/24/21 04:00 98.0 F 64 16 125/56 96 10/24/21 02:00 85 20 10/23/21 22:35 97.9 F 85 20 136/71 97 10/23/21 21:52 124/74 10/23/21 21:00 97.4 F L 93 17 136/74 93 L 10/23/21 18:33 93 18 143/75 96 10/23/21 16:07 94 20 137/97 96 10/23/21 12:56 98.4 F 90 18 131/105 98 Intake and Output 10/23/21 10/24/21 10/24/21 22:59 06:59 14:59 Intake Total 247.604 118 Balance 247.604 118 Intake: Intake, IV Titration 247.604 Amount Heparin Sod,Pork in 0.45% 247.604 NaCl 25,000 unit In 0.45 % NaCl 1 250ml.bag @ 17. 425 UNITS/KG/HR 23 mls/hr IV .[id number] [facility] Rx#: [id number] Oral 118 Other: Voiding Method Toilet # Voids 2 Weight 131.995 kg Results CBC & Chem 7: 10/24/21 06:36 10/24/21 06:36 Labs: Abnormal Lab Results - Last 24 Hours (Table) 10/23/21 10/23/21 10/23/21 Range/Units 13:33 13:33 22:34 APTT 78.6 H (22.0-30.0) sec D-Dimer 2.44 H (<0.60) mg/L FEU Sodium 136 L (137-145) mmol/L Chloride (98-107) mmol/L Carbon Dioxide (22-30) mmol/L Glucose 106 H (74-99) mg/dL 10/24/21 10/24/21 Range/Units 06:36 06:36 APTT 64.1 H (22.0-30.0) sec D-Dimer (<0.60) mg/L FEU Sodium (137-145) mmol/L Chloride 109 H (98-107) mmol/L Carbon Dioxide 21 L (22-30) mmol/L Glucose 105 H (74-99) mg/dL Thrombosis Risk Factor Assmnt - Choose All That Apply Any of the Below Risk Factors Present?: Yes Each Factor Represents 1 point: Age 41-60 years, Obesity (BMI >25) Thrombosis Risk Factor Assessment Total Risk Factor Score: 2 Thrombosis Risk Factor Assessment Level: Low Risk
[2021-10-24] MEDS: LOSARTAN 50 MG TAB PO SCH (20:05)
[2021-10-24] MEDS: METOPROLOL SUCCINATE (ER) 100 MG TAB.ER.24H PO SCH (20:05)
[2021-10-25] MEDS: HEPARIN SOD,PORK IN 0.45% NACL 25,000 UNIT in 0.45% NACL 1 250ML.BAG IV SCH ×2 (03:34→09:10)
[2021-10-25] MEDS: LEVOTHYROXINE 75 MCG TAB PO SCH (05:54)
[2021-10-25] MEDS: ALBUTEROL NEBULIZED 2.5 MG/3 ML INHALATION PRN ×2 (08:06→10:48)
[2021-10-25] MEDS ORDERED: PANTOPRAZOLE 40 MG TABLET PO SCH (09:00)
[2021-10-25] MEDS: hydroCHLOROthiazide 25 MG TAB PO SCH (09:10)
[2021-10-25] MEDS: ESCITALOPRAM 20 MG TAB PO SCH (09:10)
[2021-10-25] MEDS: ASPIRIN 81 MG PO SCH (09:10)
[2021-10-25 09:19] VITALS: BP 140/72; RESP 16; TEMP 97.4
[2021-10-25 11:00] VITALS: PULSE 77
[2021-10-25] MEDS ORDERED: APIXABAN 5 MG TAB PO SCH (11:00)
--- NOTE | 2021-10-25 11:02 | P.DS ---
Providers Date of admission: 10/24/21 10:27 Expected date of discharge: 10/25/21 Attending physician: Leonel Valenzuela MD Consults: 10/23/21 16:54 Consult Physician Routine Consulting Provider: Charles Meza Consult Reason/Comments: bilateral PE Do you want consulting provider notified?: Yes 10/23/21 16:57 Consult Physician Routine Consulting Provider: Vadim Michelle Consult Reason/Comments: bilateral PE Do you want consulting provider notified?: Yes 10/23/21 16:58 Consult Physician Routine Consulting Provider: [facility] Consult Reason/Comments: Bilateral PE, history of aortic valve replacement Do you want consulting provider notified?: Yes Primary care physician: [facility] Course: HISTORY OF PRESENT ILLNESS This is a 46-year-old female patient of Dr. Prince with past medical history of hypertension, aortic valve and tricuspid valve replacement in 2014 and 17 with tissue valves, hypothyroidism, gastroesophageal reflux disease, mild intermittent asthma, Covid 19 01/2021, active tobacco use and control use. Patient presented to the emergency center complaining of shortness of breath that been getting worse over the past week, exertional dyspnea along with cough and minimal sputum production. She also complains of midthoracic back pain has been going on for one week. She denies any orthopnea or paroxysmal nocturnal dyspnea. She denies being bedridden. She saw her PCP and d-dimer was elevated the patient was sent in for further evaluation. She was found to be afebrile, heart rate 90, blood pressure initially 131/105. Pulse ox 90% on room air. EKG is sinus rhythm, T-wave inversions in aVL, V2 and V3, incomplete right bundle branch block. CBC was unremarkable. INR 1.0. D-dimer 2.44. Chronic virus PCR not detected. Electrolytes and renal function unremarkable. Lactic acid 1.6. Calcium 10. Liver function tests normal. Troponin negative. HCG not detected. ProBNP 375. Influenza A and influenza B not detected. CTA of the chest was suboptimal, filling defects within the lower lobe pulmonary arteries suggestive of pulmonary emboli. No definite pulmonary emboli seen within pulmonary trunk or main pulmonary arteries. Questionable right cardiac strain. Ultrasound of the bilateral lower extremity negative for DVT. Patient was started on heparin drip and consults requested for pulmonary medicine, cardiology, vascular surgery. Echocardiogram has been obtained and report is pending. 2/16: 10 has been seen by cardiology and pulmonary medicine. We will start the patient on eliquis and discontinue heparin drip. central supply manager updated that eliquis prescription has been sent to pharmacy. Patient has a little bit of wheezing for which Pulmicort sent. She states otherwise her breathing is improved from yesterday. Echocardiogram reveals EF of 55-60%, mild mitral regurgitation, mild tricuspid regurgitation. Patient will be discharged home today in stable condition. DISCHARGE DIAGNOSES 1. Acute bilateral pulmonary emboli with contributing factors of Nexplanon use, active tobacco use, previous Covid 19. 2. Hypertension. 3. History of aortic valve and tricuspid valve replacement. 4. Hypothyroidism. 5. Gastroesophageal reflux disease. 6. Moderate intermittent asthma. 7. Recurrent depression. 8. Tobacco use and dependence. DISCHARGE PLAN Home. Greater than 35 minutes was utilized and coordinating patient's discharge. Impression and plan of care have been directed as dictated by the signing physician. Nani Magaña nurse practitioner acting as scribe for signing physician. Patient Condition at Discharge: Serious Plan - Discharge Summary New Discharge Prescriptions: New Apixaban [Eliquis Starter Pack (for VTE)] 5 - 10 mg PO DIRECTED 30 Days #1 each Budesonide [Pulmicort] 1 mg INHALATION BID #60 ml Continue Levothyroxine Sodium [Synthroid] 75 mcg PO QAM Cyanocobalamin [Vitamin B-12] 2,000 mcg PO DAILY@1200 Albuterol Sulfate [Proventil Hfa] 1 puff INHALATION Q4-6H PRN PRN Reason: Wheezing ALPRAZolam [Xanax] 1 mg PO TID PRN PRN Reason: Anxiety traMADol HCL [Ultram] 50 mg PO Q6HR PRN PRN Reason: Pain Omeprazole 20 mg PO DAILY PRN PRN Reason: gerd Escitalopram [Lexapro] 20 mg PO DAILY Cholecalciferol [Vitamin D3 (25 Mcg = 1000 Iu)] 125 mcg PO DAILY hydroCHLOROthiazide [Hydrodiuril] 25 mg PO QAM Losartan [Cozaar] 100 mg PO HS Etonogestrel [Nexplanon] 1 implant SQ [id number] Metoprolol Succinate (ER) [Toprol XL] 100 mg PO HS Famotidine [Pepcid] 20 mg PO DAILY PRN PRN Reason: gerd Discontinued Aspirin [Adult Low Dose Aspirin EC] 81 mg PO DAILY Discharge Medication List Levothyroxine Sodium [Synthroid] 75 mcg PO QAM 02/05/14 [History] Cyanocobalamin [Vitamin B-12] 2,000 mcg PO DAILY@1200 03/18/15 [History] ALPRAZolam [Xanax] 1 mg PO TID PRN 03/20/21 [History] Albuterol Sulfate [Proventil Hfa] 1 puff INHALATION Q4-6H PRN 03/20/21 [History] Cholecalciferol [Vitamin D3 (25 Mcg = 1000 Iu)] 125 mcg PO DAILY 03/20/21 [History] Losartan [Cozaar] 100 mg PO HS 03/20/21 [History] Omeprazole 20 mg PO DAILY PRN 03/20/21 [History] hydroCHLOROthiazide [Hydrodiuril] 25 mg PO QAM 03/20/21 [History] traMADol HCL [Ultram] 50 mg PO Q6HR PRN 03/20/21 [History] Etonogestrel [Nexplanon] 1 implant SQ [id number] 03/31/21 [History] Metoprolol Succinate (ER) [Toprol XL] 100 mg PO HS 03/31/21 [History] Escitalopram [Lexapro] 20 mg PO DAILY 10/23/21 [History] Famotidine [Pepcid] 20 mg PO DAILY PRN 10/23/21 [History] Apixaban [Eliquis Starter Pack (for VTE)] 5 - 10 mg PO DIRECTED 30 Days #1 each 10/25/21 [Rx] Budesonide [Pulmicort] 1 mg INHALATION BID #60 ml 10/25/21 [Rx] Follow up Appointment(s)/Referral(s): Jean-Claude Odom MD [STAFF PHYSICIAN] - 2 Weeks (removal of Nexplanon subdermal) Vadim Michelle DO [Doctor of Osteopathic Medicine] - 1 Week Keith Prince DO [Primary Care Provider] - 1 Week Activity/Diet/Wound Care/Special Instructions: Follow up with your director of corporate sponsorships Dr. Doshi in 1-2 weeks. Discharge Disposition: HOME SELF-CARE
--- NOTE | 2021-10-25 12:48 | P.PN ---
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 Covid-19 in January 2021. Fully vaccinated received J&J booster in August 2021. She follows with T[facility] at [facility]. We have been consulted for bilateral pulmonary emboli. Patient presents to emergency department complaining of worsening exertional shortness of breath that is getting worse over the last week. CTA revealed bilateral pulmonary emboli with questionable right heart strain. Echocardiogram revealed EF of 5560 percent, peak pressure gradient across the aortic valve is 14 mmHg 66 mmHg, mild tricuspid regurgitation, normal right heart strain identified, RVSP is normal <35mmHg. Patient seen at bedside, no acute distress. She states her breathing has impr shell. She denies any chest pain. Denies any palpitations or lightheadedness or dizziness. Vital signs are stable. She is maintained on IV heparin, aspirin 81 mg daily, Synthroid, hydrochlorothiazide 25 mg daily, losartan 100 mg daily, metoprolol succinate 100 mg daily PHYSICAL EXAMINATION Vitals reviewed CONSTITUTIONAL: No apparent distress. HEENT: Neck supple No JVD. CHEST EXAMINATION: Lungs bilateral wheezing to auscultation. No chest wall tenderness is noted on palpation or with deep breathing. HEART EXAMINATION: Regular rate and rhythm. S1, S2 heard. Systolic ejectino murmur ABDOMEN: Soft, nontender. Positive bowel sounds. EXTREMITIES: 2+ peripheral pulses, no lower extremity edema and no calf tenderness. NEUROLOGIC EXAMINATION: Patient is awake, alert and oriented x3. 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 No further inpatient workup from a signalman perspective, patient is stable to be discharged home on anticoagulation Nurse practitioner note has been reviewed by physician. Signing provider agrees with the documented findings, assessment, and plan of care. Objective - Vital Signs Vital signs: Vital Signs Temp 97.4 F L 10/25/21 08:00 Pulse 80 10/25/21 08:21 Resp 16 10/25/21 08:00 BP 140/72 10/25/21 08:00 Pulse Ox 95 10/25/21 08:00 Intake & Output 10/24/21 10/25/21 10/25/21 18:59 06:59 18:59 Intake Total 486 1020 490 Balance 486 1020 490 Intake: Intake, IV Titration 250 250 Amount Heparin Sod,Pork in 0.45% 250 250 NaCl 25,000 unit In 0.45 % NaCl 1 250ml.bag @ 17. 425 UNITS/KG/HR 23 mls/hr IV .[id number] [facility] Rx#: [id number] Oral 236 1020 240 Other: Voiding Method Toilet # Voids 4 1 - Labs CBC & Chem 7: 10/24/21 06:36 10/24/21 06:36 Labs: Abnormal Lab Results - Last 24 Hours (Table) 10/25/21 Range/Units 07:43 APTT 48.3 H (22.0-30.0) sec
--- NOTE | 2021-10-25 15:36 | P.PN ---
Subjective Progress Note Date: 10/25/21 Principal diagnosis: Dyspnea, hypoxemia 46-year-old female who presents to the emergency department, on October 23, complaining of shortness of breath. The patient does have a history of valvular heart disease, with aortic valve and tricuspid valve replacement, as well as acid reflux disease, and asthma. Over the last couple of days, her shortness of breath has gotten worse. She denies any fever or chills. No cough or phlegm production. She denies any chest pain. The patient had a workup in the emergency room, and was found to have an elevated d-dimer. The patient had a CT angiogram, which showed filling defects in the lower lobe pulmonary arteries. There is no central pulmonary emboli. There is questionable right cardiac strain. Dopplers of the lower extremities are negative. The patient is vaccinated. The pulmonary emboli appear to be unprovoked. Is not particularly active. She has been smoking cigarettes for about 30 years. Her primary care physician is Dr. Prince. Currently, she is on saline at 20 mL an hour, no supplemental oxygen, and IV heparin. CBC is completely normal. PTT is 64.1. D-dimer was 2.44. Sodium 137, potassium 3.9, chlorides 109, CO2 21, anion gap 7, BUN 14, and creatinine 0.65. On 10/25/2021 patient seen in follow-up on selective care unit she is breathing comfortably at rest, she states she still mildly short of breath with exertion, but has been able to tolerate ambulation, she is currently on room air with pulse ox of 95-98%, afebrile, hemodynamically stable, no complaints of chest pain. She remains on heparin infusion. Echocardiogram shows EF of 55-60%, trace to mild mitral regurgitation, mild tricuspid regurgitation. Hemodynamically patient has remained stable. No acute events overnight. Dwaine riley was not a candidate for EKOS. Objective - Vital Signs Vital signs: Vital Signs Temp 97.4 F L 10/25/21 08:00 Pulse 77 10/25/21 11:00 Resp 16 10/25/21 08:00 BP 140/72 10/25/21 08:00 Pulse Ox 95 10/25/21 08:00 Intake & Output 10/24/21 10/25/21 10/25/21 18:59 06:59 18:59 Intake Total 486 1020 490 Balance 486 1020 490 Intake: Intake, IV Titration 250 250 Amount Heparin Sod,Pork in 0.45% 250 250 NaCl 25,000 unit In 0.45 % NaCl 1 250ml.bag @ 17. 425 UNITS/KG/HR 23 mls/hr IV .[id number] [facility] Rx#: [id number] Oral 236 1020 240 Other: Voiding Method Toilet Toilet # Voids 4 1 - Exam GENERAL EXAM: Alert, very pleasant, 46-year-old white female, on room air with a pulse ox of 95-98%, comfortable in no apparent distress. HEAD: Normocephalic/atraumatic. EYES: Normal reaction of pupils, equal size. Conjunctiva pink, sclera white. NOSE: Clear with pink turbinates. THROAT: No erythema or exudates. NECK: No masses, no JVD, no thyroid enlargement, no adenopathy. CHEST: No chest wall deformity. Symmetrical expansion. LUNGS: Equal air entry with no crackles, wheeze, rhonchi or dullness. CVS: Regular rate and rhythm, normal S1 and S2, no gallops, no murmurs, no rubs ABDOMEN: Soft, nontender. No hepatosplenomegaly, normal bowel sounds, no guarding or rigidity. EXTREMITIES: No clubbing, no edema, no cyanosis, 2+ pulses and upper and lower extremities. MUSCULOSKELETAL: Muscle strength and tone normal. SPINE: No scoliosis or deformity SKIN: No rashes CENTRAL NERVOUS SYSTEM: Alert and oriented -3. No focal deficits, tone is normal in all 4 extremities. PSYCHIATRIC: Alert and oriented -3. Appropriate affect. Intact judgment and insight. - Labs CBC & Chem 7: 10/24/21 06:36 10/24/21 06:36 Labs: Abnormal Lab Results - Last 24 Hours (Table) 10/25/21 Range/Units 07:43 APTT 48.3 H (22.0-30.0) sec Assessment and Plan Plan: Acute pulmonary embolism, unprovoked. No evidence of DVT on lower extremity Doppler. History of valvular heart disease, status post aortic valve and tricuspid valve replacement. Morbid obesity, status post lap band procedure, 2015. Gastroesophageal reflux disease. Hypothyroidism. History of ongoing tobacco use with nicotine addiction. History of anxiety. Plan: Overnight patient has remained stable Vital signs are stable, blood pressure stable Echocardiogram results have been reviewed Patient is being transitioned to oral anticoagulation with Eliquis Recommend at least 6 months of oral anticoagulation in view of an unprovoked pulmonary embolism Outpatient follow-up with Dr. Michelle in the office in one to 2 weeks I performed a history & physical examination of the patient and discussed their management with my nurse practitioner, Patsy Benson. I reviewed the nurse practitioner's note and agree with the documented findings and plan of care. Lung sounds are positive for dim breath sounds throughout the lung sharpe. The findings and the impression was discussed with the patient. I attest to the documentation by the nurse practitioner. Time with Patient: Less than 30
== END 2021-10-25 12:31 | disposition home or self-care (01) | DRG 176 ==
LOC: EC 12:25 → 3SCARD 16:54 → OBSVTOIN 10-24 10:27
PROVIDERS: ADMIT Internal Medicine; ATTEND Internal Medicine
DX: I26.99 Other pulmonary embolism without acute cor pulmonale (principal); F33.9 Major depressive disorder, recurrent, unspecified; Z68.43 Body mass index [BMI] 50.0-59.9, adult; F17.210 Nicotine dependence, cigarettes, uncomplicated; F41.9 Anxiety disorder, unspecified; I10 Essential (primary) hypertension; Z20.822 Contact with and (suspected) exposure to COVID-19; Z86.16 Personal history of COVID-19; Z98.84 Bariatric surgery status; F17.290 Nicotine dependence, other tobacco product, uncomplicated; I25.10 Atherosclerotic heart disease of native coronary artery without angina pectoris; I08.1 Rheumatic disorders of both mitral and tricuspid valves; J45.20 Mild intermittent asthma, uncomplicated; I45.10 Unspecified right bundle-branch block; E78.5 Hyperlipidemia, unspecified; E66.01 Morbid (severe) obesity due to excess calories; E03.9 Hypothyroidism, unspecified; K21.9 Gastro-esophageal reflux disease without esophagitis; R09.02 Hypoxemia; Z79.82 Long term (current) use of aspirin; Z79.890 Hormone replacement therapy; Z88.2 Allergy status to sulfonamides; Z79.899 Other long term (current) drug therapy; Z82.49 Family history of ischemic heart disease and other diseases of the circulatory system; Z83.3 Family history of diabetes mellitus; Z95.2 Presence of prosthetic heart valve; Z90.49 Acquired absence of other specified parts of digestive tract
CPT/HCPCS: 36415; 71046; 71275; 80048; 80053; 83605; 83735; 83880; 84484; 84703; 85025; 85379; 85610; 85730; 87502; 87635; 93005; 93306; 93970; 94640; 96374; 99291

== ENCOUNTER → 2022-01-05 | Outpatient (CLI) | payer BC ==
--- NOTE | 2022-01-05 09:55 | CT ---
EXAMINATION TYPE: CT angio chest DATE OF EXAM: 01/05/2022 COMPARISON: CTA chest October 23, 2021 HISTORY: Follow up for PE. Prior abnormal CT. CT DLP: 564 mGycm. Automated Exposure Control for Dose Reduction was Utilized. CONTRAST: CTA scan of the thorax is performed with IV Contrast, patient injected with 100 mL of Isovue 370, pul monary embolism protocol. MIP Images are created on CT scanner and reviewed. FINDINGS: LUNGS: The lungs are currently grossly clear, there is no concerning greater than 5 mm parenchymal ma ss or nodule identified. There is no pleural effusion or pneumothorax seen. The tracheobronchial t ree is patent. MEDIASTINUM: There is satisfactory enhancement of the pulmonary artery improved from prior. Some resi dual hypodense material or embolism in the right lower lobe pulmonary artery (axial image 66 extendin g inferiorly through 71 is significantly improved from prior. No definitive residual left-sided embol ism. No new emboli seen. There are no new greater than 1 cm hilar or mediastinal lymph nodes. No ca rdiomegaly or pericardial effusion is seen. 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 Opacified thoracic aorta without aneurysm or dissection is redemonstrated. Main pulmonary artery prominent similar to prior near 3.0 cm. OTHER:. There is lap band device stable and satisfactory in position. Cholecystectomy clips are redem onstrated. IMPRESSION: Near complete resolution of bilateral lower lung pulmonary emboli. No new emboli seen. Elidia ngs remain clear.
== END | disposition home or self-care (01) ==
LOC: RADCTMAIN 09:00
PROVIDERS: ATTEND Internal Medicine Critical Care Medicine
DX: Z09 Encounter for follow-up examination after completed treatment for conditions other than malignant neoplasm (principal); Z86.711 Personal history of pulmonary embolism
CPT/HCPCS: 71275; Q9967

== ENCOUNTER 2022-02-20 08:11 | Day surgery (SDC) | payer BC ==
[2022-02-16 11:22] VITALS: BMI 49.6
[~2022-02-20 08:11] MED LIST changes: +LACTATED RINGERS 1,000 ML IV SCH; +LIDOCAINE 1% (10MG/ML) FOR IV START INTRADERMA PRN; -REGADENOSON 0.4 MG/5 ML SYRINGE IV ONE
[2022-02-20 08:35] VITALS: TEMP 96.5
[2022-02-20] MEDS ORDERED: PROPOFOL 10 MG/ML 20 ML VIAL IV ONE (09:03)
[2022-02-20] MEDS ORDERED: LIDOCAINE 2% INJ 20 MG/ML (2 ML VIAL) ONE (09:03)
--- NOTE | 2022-02-20 09:09 | P.GSHP ---
History of Present Illness H&P Date: 02/20/22 Chief Complaint: Abnormal cologuard 46-year-old female here today for colonoscopy. Patient has had frequent diarrhea and recently had an abnormal cologuard test. She does not see any blood in her stool. No family history of colon cancer. She has not had a colonoscopy previously. Past Medical History Past Medical History: Asthma, GERD/Reflux, Hyperlipidemia, Hypertension, Thyroid Disorder Additional Past Medical History / Comment(s): heart murmur. defects with heart at . History of Any Multi-Drug Resistant Organisms: None Reported Past Surgical History: Adenoidectomy, Bariatric Surgery, Cardiac Valve Replacement, Section, Cholecystectomy, Heart Catheterization, Tonsillectomy Additional Past Surgical History / Comment(s): open heart aug 2015, april 2017. cow valve - main aortic valve. bicupsid valve repl. Past Anesthesia/Blood Transfusion Reactions: No Reported Reaction Past Psychological History: Anxiety Smoking Status: Light tobacco smoker, Vaper Past Alcohol Use History: Occasional Additional Past Alcohol Use History / Comment(s): 1-2 drinks a week Past Drug Use History: None Reported - Past Family History Father Family Medical History: Coronary Artery Disease (CAD), Diabetes Mellitus, Hypertension Additional Family Medical History / Comment(s): at 47 Heart issues Medications and Allergies Home Medications Medication Instructions Recorded Confirmed Type Levothyroxine Sodium [Synthroid] 75 mcg PO QAM 02/05/14 02/20/22 History Cyanocobalamin [Vitamin B-12] 2,000 mcg PO DAILY@1200 03/18/15 02/20/22 History ALPRAZolam [Xanax] 1 mg PO TID PRN 03/20/21 02/20/22 History Albuterol Sulfate [Proventil Hfa] 1 puff INHALATION Q4-6H PRN 03/20/21 02/20/22 History Cholecalciferol [Vitamin D3 (25 125 mcg PO DAILY 03/20/21 02/20/22 History Mcg = 1000 Iu)] Losartan [Cozaar] 100 mg PO DAILY 03/20/21 02/20/22 History hydroCHLOROthiazide [Hydrodiuril] 25 mg PO QAM 03/20/21 02/20/22 History traMADol HCL [Ultram] 50 mg PO Q6HR PRN 03/20/21 02/20/22 History Metoprolol Succinate (ER) [Toprol 100 mg PO DAILY 03/31/21 02/20/22 History XL] Escitalopram [Lexapro] 20 mg PO DAILY 10/23/21 02/20/22 History Famotidine [Pepcid] 20 mg PO DAILY 10/23/21 02/20/22 History Apixaban [Eliquis Starter Pack 5 - 10 mg PO DIRECTED 30 Days 10/25/21 02/20/22 Rx (for VTE)] #1 each Aspirin [Adult Low Dose Aspirin EC] 81 mg PO DAILY 02/16/22 02/20/22 History Triamcinolone Acetonide [Nasacort] 1 spray EA NOSTRIL DAILY 02/16/22 02/20/22 History Allergies Allergy/AdvReac Type Severity Reaction Status Date / Time Sulfa (Sulfonamide Allergy Rash/Hives Verified 02/20/22 08:36 Antibiotics) Surgical - Exam Vital Signs Temp Pulse Resp BP Pulse Ox 96.5 F L 68 18 126/77 96 02/20/22 08:30 02/20/22 08:30 02/20/22 08:30 02/20/22 08:30 02/20/22 08:30 Physical exam: General: Well-developed, well-nourished HEENT: Normocephalic, sclerae nonicteric Abdomen: Nontender, nondistended Extremities: No edema Neuro: Alert and oriented Assessment and Plan (1) Abnormal stool test Narrative/Plan: Will proceed with colonoscopy at this time Current Visit: Yes Status: Acute Code(s): R19.5 - OTHER FECAL ABNORMALITIES SNOMED Code(s): 812692011
--- NOTE | 2022-02-20 09:26 | P.PCN ---
Date of Procedure: 02/20/22 Procedure(s) Performed: PREOPERATIVE DIAGNOSIS: Abnormal stool test, chronic diarrhea POSTOPERATIVE DIAGNOSIS: Normal exam PROCEDURE: Colonoscopy with random biopsy ANESTHESIA: MAC SURGEON: Hamlet Jacobson M.D. SPECIMENS: Random colon ENDOSCOPIC PROCEDURE: The patient was placed on the endoscopy table in the left decubitus position. The Olympus colonoscope was inserted into the anus and passed under direct visualization to the base of the cecum. The appendiceal orifice was visualized. From that point the scope was slowly withdrawn inspecting all surfaces carefully. There were no neoplastic inflammatory or polypoid lesions throughout the cecum, ascending, transverse, descending, sigmoid and rectum. There was no visible diverticulosis noted. Random biopsies were taken to evaluate for microscopic colitis. Digital rectal examination was normal. The patient was taken to the recovery room in stable condition per anesthesia guidelines. RECOMMENDATIONS: Await biopsy results. Repeat colonoscopy in 10 years.
[2022-02-20 09:52] VITALS: BP 100/60; PULSE 80; RESP 16
== END 2022-02-20 10:13 | disposition home or self-care (01) ==
LOC: ORWHC2ENDO 08:11
PROVIDERS: ATTEND Surgery
DX: R19.7 Diarrhea, unspecified (principal); R19.5 Other fecal abnormalities; J45.909 Unspecified asthma, uncomplicated; K21.9 Gastro-esophageal reflux disease without esophagitis; E78.5 Hyperlipidemia, unspecified; I10 Essential (primary) hypertension; E07.9 Disorder of thyroid, unspecified; R01.1 Cardiac murmur, unspecified; F41.9 Anxiety disorder, unspecified; F17.290 Nicotine dependence, other tobacco product, uncomplicated; G47.33 Obstructive sleep apnea (adult) (pediatric); Z98.84 Bariatric surgery status; Z95.3 Presence of xenogenic heart valve; Z95.1 Presence of aortocoronary bypass graft; Z91.19 Patient's noncompliance with other medical treatment and regimen; Z90.89 Acquired absence of other organs; Z79.890 Hormone replacement therapy; Z79.899 Other long term (current) drug therapy; Z79.01 Long term (current) use of anticoagulants; Z79.82 Long term (current) use of aspirin; Z88.2 Allergy status to sulfonamides; Z90.49 Acquired absence of other specified parts of digestive tract; Z98.891 History of uterine scar from previous surgery; Z82.49 Family history of ischemic heart disease and other diseases of the circulatory system; Z83.3 Family history of diabetes mellitus
CPT/HCPCS: 81025; 88305; 45380; J2704; J2001

== ENCOUNTER → 2022-03-20 | Outpatient (CLI) | payer BC ==
[2022-03-20 15:25] VITALS: BP 165/82; PULSE 84; RESP 16; TEMP 98; BMI 51.7
--- NOTE | 2022-03-20 15:44 | P.BASOAP ---
Subjective Progress Note Date: 03/20/22 Principal diagnosis: GERD Patient returns for reevaluation. Patient is requesting a lap band fill. She says she feels loose. She is having reflux. Denies dysphagia. Says she is eating too much. Last upper GI here was in 2014. Currently has 4 mL in her band. Objective - Vital Signs Vital signs: Vital Signs Temp 98 F 03/20/22 15:21 Pulse 84 03/20/22 15:21 Resp 16 03/20/22 15:21 BP 165/82 03/20/22 15:21 Pulse Ox FiO2 Intake & Output 03/19/22 03/20/22 03/20/22 18:59 06:59 18:59 Weight 132.449 kg - Exam Abdomen: Soft, nontender, nondistended Assessment/Plan (1) GERD (gastroesophageal reflux disease) Narrative/Plan: Options discussed with patient. Given the complaints of worsening reflux favor ordering esophagram first to evaluate whether the band is too tight. This will be arranged. Decisions regarding band adjustment will be made following that. Once again discussed options of conversion to gastric bypass with the patient. She says she does not think she can follow through on that because of the inability to take time off work or stop nicotine. Will contact patient with upper GI results. Plan: Date: 03/20/22 Initial Weight: 102.33 kg Initial BMI: 39.9 Current Weight: 132.449 kg Current BMI: 51.7 Type of Surgery: Adjustable Gastric Banding Total Volume in Band: 4 Previous Volume: Volume Removed: Volume Added: Band Size:
== END ==
LOC: BARWHC3 14:48
PROVIDERS: ATTEND Surgery
DX: K21.9 Gastro-esophageal reflux disease without esophagitis (principal); Z98.84 Bariatric surgery status; Z88.2 Allergy status to sulfonamides
CPT/HCPCS: 99211

== ENCOUNTER → 2022-04-05 | Outpatient (CLI) | payer BC ==
--- NOTE | 2022-04-05 14:47 | FL ---
SINGLE CONTRAST ESOPHAGRAM: CLINICAL HISTORY: 46-year-old female R1 3.10, dysphagia. Patient with lap band placed 11 years ago. Heartburn and reflux for 8 months. TECHNIQUE: Single contrast exam performed with thin barium. Total fluoroscopy time: 1 minute 41 seconds. Total images: 28. FINDINGS: Initial image shows satisfactory orientation of the lap band device. Underlying median sternotomy wir es are noted. The patient swallowed oral contrast without difficulty or delay. Esophageal peristalsi s and motility are within normal limits. Laparoscopic banding device is noted to be in place and is appropriately positioned in the proximal stomach, just below the gastroesophageal junction. There is tight, restricted, but adequate flow of contrast along the course of the lap band. Additional prone and supine imaging could not elicit any gastroesophageal reflux. No hiatal hernia is seen. IMPRESSION: Tight, restricted, but adequate flow of contrast across the lap band. There is no obstruction or evid ence for lap band prolapse.
== END | disposition home or self-care (01) ==
LOC: RADUSWWP 09:49
PROVIDERS: ATTEND Surgery
DX: R13.10 Dysphagia, unspecified (principal)
CPT/HCPCS: 74220

== ENCOUNTER → 2022-12-04 | Outpatient (CLI) | payer BC ==
[2022-12-04 15:18] VITALS: BP 157/79; PULSE 85; RESP 16; TEMP 98.5; BMI 51.7
--- NOTE | 2022-12-04 17:03 | P.BASOAP ---
Subjective Progress Note Date: 12/04/22 Principal diagnosis: Morbid obesity The patient returns for recheck. A portion of the patient's weight has not improved much. Upper GI from 04/05 showed the band was somewhat tight. Patient describes decreased restriction. She wants a 0.5 mL fill. Says she is hungry. Still using nicotine in the form of vaping Objective - Vital Signs Vital signs: Vital Signs Temp 98.5 F 12/04/22 15:15 Pulse 85 12/04/22 15:15 Resp 16 12/04/22 15:15 BP 157/79 12/04/22 15:15 Pulse Ox FiO2 Intake & Output 12/03/22 12/04/22 12/04/22 18:59 06:59 18:59 Weight 132.449 kg - Exam Abdomen: Soft, nontender, nondistended Assessment/Plan (1) Morbid obesity Narrative/Plan: Patient requesting more fluid be added to her band. We have agreed add 0.2 mL. Patient I once again discussed the option of conversion to gastric bypass which I think would be the patient's best option at this point. She says she is concerned because of anxiety regarding the surgery itself and also her current nicotine use. She will continue to consider. The patient's lap band port was palpated. The site was aseptically prepped. The Delatorre needle was advanced into the port. A total of 0.2 ml of fluid was added for a total of 4.2 mL. Pressure was held and a sterile dressing was applied. Plan: Date: 12/04/22 Initial Weight: 102.33 kg Initial BMI: 39.9 Current Weight: 132.449 kg Current BMI: 51.7 Type of Surgery: Adjustable Gastric Banding Total Volume in Band: 4 Previous Volume: Volume Removed: Volume Added: Band Size:
== END ==
LOC: BARWHC3 15:04
PROVIDERS: ATTEND Surgery
DX: E66.01 Morbid (severe) obesity due to excess calories (principal); Z68.43 Body mass index [BMI] 50.0-59.9, adult; Z46.51 Encounter for fitting and adjustment of gastric lap band; F17.200 Nicotine dependence, unspecified, uncomplicated; Z88.2 Allergy status to sulfonamides
CPT/HCPCS: 99212

== ENCOUNTER → 2023-01-21 | Outpatient (CLI) | payer BC ==
--- NOTE | 2023-02-22 12:34 | EM ---
EVENT MONITOR The patient was monitored between the and January. The rhythm strip revealed a sinus mechanism. No atrial fibrillation was noted. No pauses were noted. Symptoms of racing or fast heartbeat correlated with sinus mechanism. MMPEDROL / IJN: [id number] /
== END | disposition home or self-care (01) ==
LOC: RADECHMAIN 07:57
PROVIDERS: ATTEND Family Medicine
DX: I49.9 Cardiac arrhythmia, unspecified (principal)
CPT/HCPCS: 93270

== ENCOUNTER 2023-02-17 10:29 | Emergency (ER) | payer BC ==
[2023-02-17 10:35] VITALS: TEMP 98.5
--- NOTE | 2023-02-17 11:12 | ED ---
General Adult HPI - General Chief complaint: Chest Pain Stated complaint: chest pain Time Seen by Provider: 02/17/23 10:35 Source: patient, RN notes reviewed, old records reviewed Mode of arrival: ambulatory Limitations: no limitations - History of Present Illness Initial comments: This is a 47-year-old female who presents emergency Department with a past medical history significant for open heart surgery 2 for valve replacement. Patient also has a history of PEs. Patient states from the [place]. Patient comes in today because since Saturday she's been having some sharp chest pain with deep breathing and radiates from the chest on the left side back. Patient states she also feels a little short of breath. Patient denies any fever chills or cough per patient denies any chest pressure or heaviness. Patient denies having any history of diabetes. Patient states she does have high blood pressure high cholesterol. Patient denies abdominal pain patient denies nausea vomiting diarrhea - Related Data Home Medications Medication Instructions Recorded Confirmed Levothyroxine Sodium [Synthroid] 75 mcg PO QAM 02/05/14 12/06/22 Cyanocobalamin [Vitamin B-12] 2,000 mcg PO DAILY@1200 03/18/15 12/06/22 ALPRAZolam [Xanax] 1 mg PO TID PRN 03/20/21 12/06/22 Albuterol Sulfate [Proventil Hfa] 1 puff INHALATION Q4-6H PRN 03/20/21 12/06/22 Cholecalciferol [Vitamin D3 (25 125 mcg PO DAILY 03/20/21 12/06/22 Mcg = 1000 Iu)] Losartan [Cozaar] 100 mg PO DAILY 03/20/21 12/06/22 hydroCHLOROthiazide [Hydrodiuril] 25 mg PO QAM 03/20/21 12/06/22 traMADol HCL [Ultram] 50 mg PO Q6HR PRN 03/20/21 12/06/22 Metoprolol Succinate (ER) [Toprol 100 mg PO DAILY 03/31/21 12/06/22 XL] Escitalopram [Lexapro] 20 mg PO DAILY 10/23/21 12/06/22 Famotidine [Pepcid] 20 mg PO DAILY 10/23/21 12/06/22 Aspirin [Adult Low Dose Aspirin EC] 81 mg PO DAILY 02/16/22 12/06/22 Triamcinolone Acetonide [Nasacort] 1 spray EA NOSTRIL DAILY 02/16/22 12/06/22 Previous Rx's Medication Instructions Recorded Apixaban [Eliquis Starter Pack 5 - 10 mg PO DIRECTED 30 Days 10/25/21 (for VTE)] #1 each Allergies Allergy/AdvReac Type Severity Reaction Status Date / Time Sulfa (Sulfonamide Allergy Rash/Hives Verified 02/17/23 10:35 Antibiotics) Review of Systems ROS Statement: Those systems with pertinent positive or pertinent negative responses have been documented in the HPI. ROS Other: All systems not noted in ROS Statement are negative. Past Medical History Past Medical History: Asthma, GERD/Reflux, Hyperlipidemia, Hypertension, Pulmonary Embolus (PE), Thyroid Disorder Additional Past Medical History / Comment(s): heart murmur. defects with heart at . History of Any Multi-Drug Resistant Organisms: None Reported Past Surgical History: Adenoidectomy, Bariatric Surgery, Cardiac Valve Replacement, Section, Cholecystectomy, Heart Catheterization, Tonsillectomy Additional Past Surgical History / Comment(s): open heart aug 2015, april 2017. cow valve - main aortic valve. bicupsid valve repl. Past Anesthesia/Blood Transfusion Reactions: No Reported Reaction Past Psychological History: Anxiety Smoking Status: Light tobacco smoker, Vaper Past Alcohol Use History: Occasional Past Drug Use History: None Reported - Past Family History Father Family Medical History: Coronary Artery Disease (CAD), Diabetes Mellitus, Hypertension Additional Family Medical History / Comment(s): at 47 Heart issues General Exam - General Exam Comments Initial Comments: GENERAL: Patient is well-developed and well-nourished. Patient is nontoxic and well- hydrated and is in mild distress. ENT: Neck is soft and supple. No significant lymphadenopathy is noted. Oropharynx is clear. Moist mucous membranes. Neck has full range of motion without eliciting any pain. EYES: The sclera were anicteric and conjunctiva were pink and moist. Extraocular movements were intact and pupils were equal round and reactive to light. Eyelids were unremarkable. PULMONARY: Unlabored respirations. Good breath sounds bilaterally. No audible rales rhonchi or wheezing was noted. CARDIOVASCULAR: There is a regular rate and rhythm without any murmurs gallops or rubs. ABDOMEN: Soft and nontender with normal bowel sounds. SKIN: Skin is clear with no lesions or rashes and otherwise unremarkable. NEUROLOGIC: Patient is alert and oriented x3. Cranial nerves II through XII are grossly intact. Motor and sensory are also intact. Normal speech, volume and content. Symmetrical smile. Cerebellar exam grossly intact. MUSCULOSKELETAL: Normal extremities with adequate strength and full range of motion. No lower extremity swelling or edema. No calf tenderness. LYMPHATICS: No significant lymphadenopathy is noted PSYCHIATRIC: Normal psychiatric evaluation. Limitations: no limitations Course Vital Signs 02/17/23 02/17/23 10:32 11:31 Temperature 98.5 F Pulse Rate 75 66 Respiratory 20 18 Rate Blood Pressure 158/76 128/61 O2 Sat by Pulse 99 98 Oximetry Medical Decision Making - Medical Decision Making EKG was interpreted by myself. EKG shows a sinus rhythm at 75 bpm FL interval is on a 36 dresses 116 QT interval is 41 QTC is 429 per patient's Was pt. sent in by a medical professional or institution (, PA, ROLL CUTTING OPERATOR, urgent care, hospital, or [facility]...) When possible be specific @ -[No] Did you speak to anyone other than the patient for history (EMS, parent, family, police, friend...)? What history was obtained from this source @ -[No] Did you review nursing and triage notes (agree or disagree)? Why? @ -[I reviewed and agree with nursing and triage notes] Were old charts reviewed (outside hosp., previous admission, EMS record, old EKG, old radiological studies, urgent care reports/EKG's, [facility] records)? Report findings @ -I reviewed prior charts and radiological studies on this patient Differential Diagnosis (chest pain, altered mental status, abdominal pain women, abdominal pain men, vaginal bleeding, weakness, fever, dyspnea, syncope, headache, dizziness, GI bleed, back pain, seizure, CVA, palpatations, mental health, musculoskeletal)? @ -Differential Chest Pain: Stable Angina, Unstable Angina, STEMI, NSTEMI Aortic Dissection, Pneumothorax, Musculoskeletal, Esophageal Spasm GERD, Cholecystitis, Pancreatitis, Zoster, this is not meant to be an all-inclusive list. EKG interpreted by me (3pts min.). @ -[As above] X-rays interpreted by me (1pt min.). @ -[None done] CT interpreted by me (1pt min.). @ -CT of the chest showed no obvious PE though his test was somewhat limited U/S interpreted by me (1pt. min.). @ -[None done] What testing was considered but not performed or refused? (CT, X-rays, U/S, labs)? Why? @ -[None] What meds were considered but not given or refused? Why? @ -[None] Did you discuss the management of the patient with other professionals (professionals i.e. DrNic, PA, ROLL CUTTING OPERATOR, lab, RT, psych nurse, social sciences department chair, metal precision machine assembler, teacher, emergency response officer, registered nurse hh case manager)? Give summary @ -[No] Was smoking cessation discussed for >3mins.? @ -[No] Was critical care preformed (if so, how long)? @ -[No] Were there social determinants of health that impacted care today? How? (Homelessness, low income, unemployed, alcoholism, drug addiction, transportation, low edu. Level, literacy, decrease access to med. care, snf, rehab)? @ -[No] Was there de-escalation of care discussed even if they declined (Discuss DNR or withdrawal of care, Hospice)? DNR status @ -[No] What co-morbidities impacted this encounter? (DM, HTN, Smoking, COPD, CAD, Cancer, CVA, ARF, Chemo, Hep., AIDS, mental health diagnosis, sleep apnea, morbid obesity)? @ -[None] Was patient admitted / discharged? Hospital course, mention meds given and route, prescriptions, significant lab abnormalities, going to OR and other pertinent info. @ -Patient was sleeping in the room I went back to reevaluate she was in no respiratory distress however she stated that she still getting chest pains and shortness of breath. I told the patient she needs to be admitted to the hospital she refused and signed out AMA Undiagnosed new problem with uncertain prognosis? @ -[No] Drug Therapy requiring intensive monitoring for toxicity (Heparin, Nitro, Insulin, Cardizem)? @ -[No] Were any procedures done? @ -[No] Diagnosis/symptom? @ -chest pain Acute, or Chronic, or Acute on Chronic? @ -Acute Uncomplicated (without systemic symptoms) or Complicated (systemic symptoms)? @ -Complicated Side effects of treatment? @ -[No] Exacerbation, Progression, or Severe Exacerbation? @ -[No] Poses a threat to life or bodily function? How? (Chest pain, USA, FL, pneumonia, PE, COPD, DKA, ARF, appy, cholecystitis, CVA, Diverticulitis, Homicidal, Suicidal, threat to staff... and all critical care pts) @ -Yes this could be a precursor to an FL and lead 2 poor perfusion and end organ dysfunction - Lab Data Result diagrams: 02/17/23 11:05 02/17/23 11:05 Lab Results 02/17/23 02/17/23 02/17/23 Range/Units 11:05 11:05 11:05 WBC 11.5 H (3.8-10.6) k/uL RBC 4.33 (3.80-5.40) m/uL Hgb 12.9 (11.4-16.0) gm/dL Hct 38.8 (34.0-46.0) % MCV 89.7 (80.0-100.0) fL MCH 29.8 (25.0-35.0) pg MCHC 33.2 (31.0-37.0) g/dL RDW 13.4 (11.5-15.5) % Plt Count 307 (150-450) k/uL MPV 8.4 Neutrophils % 66 % Lymphocytes % 26 % Monocytes % 4 % Eosinophils % 1 % Basophils % 0 % Neutrophils # 7.6 (1.3-7.7) k/uL Lymphocytes # 3.0 (1.0-4.8) k/uL Monocytes # 0.5 (0-1.0) k/uL Eosinophils # 0.2 (0-0.7) k/uL Basophils # 0.0 (0-0.2) k/uL PT 10.1 (9.0-12.0) sec INR 0.9 (<1.2) APTT 21.8 L (22.0-30.0) sec D-Dimer 0.41 (<0.60) mg/L FEU Sodium 138 (137-145) mmol/L Potassium 4.2 (3.5-5.1) mmol/L Chloride 104 (98-107) mmol/L Carbon Dioxide 26 (22-30) mmol/L Anion Gap 8 mmol/L BUN 16 (7-17) mg/dL Creatinine 0.57 (0.52-1.04) mg/dL Est GFR (CKD-EPI)AfAm >90 (>60 ml/min/1.73 sqM) Est GFR (CKD-EPI)NonAf >90 (>60 ml/min/1.73 sqM) Glucose 96 (74-99) mg/dL Plasma Lactic Acid Lit (0.7-2.0) mmol/L Calcium 9.2 (8.4-10.2) mg/dL Total Bilirubin 0.6 (0.2-1.3) mg/dL AST 21 (14-36) U/L ALT 21 (4-34) U/L Alkaline Phosphatase 51 (38-126) U/L Troponin I (0.000-0.034) ng/mL Total Protein 7.1 (6.3-8.2) g/dL Albumin 4.0 (3.5-5.0) g/dL 02/17/23 02/17/23 Range/Units 11:05 11:05 WBC (3.8-10.6) k/uL RBC (3.80-5.40) m/uL Hgb (11.4-16.0) gm/dL Hct (34.0-46.0) % MCV (80.0-100.0) fL MCH (25.0-35.0) pg MCHC (31.0-37.0) g/dL RDW (11.5-15.5) % Plt Count (150-450) k/uL MPV Neutrophils % % Lymphocytes % % Monocytes % % Eosinophils % % Basophils % % Neutrophils # (1.3-7.7) k/uL Lymphocytes # (1.0-4.8) k/uL Monocytes # (0-1.0) k/uL Eosinophils # (0-0.7) k/uL Basophils # (0-0.2) k/uL PT (9.0-12.0) sec INR (<1.2) APTT (22.0-30.0) sec D-Dimer (<0.60) mg/L FEU Sodium (137-145) mmol/L Potassium (3.5-5.1) mmol/L Chloride (98-107) mmol/L Carbon Dioxide (22-30) mmol/L Anion Gap mmol/L BUN (7-17) mg/dL Creatinine (0.52-1.04) mg/dL Est GFR (CKD-EPI)AfAm (>60 ml/min/1.73 sqM) Est GFR (CKD-EPI)NonAf (>60 ml/min/1.73 sqM) Glucose (74-99) mg/dL Plasma Lactic Acid Lit 1.7 (0.7-2.0) mmol/L Calcium (8.4-10.2) mg/dL Total Bilirubin (0.2-1.3) mg/dL AST (14-36) U/L ALT (4-34) U/L Alkaline Phosphatase (38-126) U/L Troponin I <0.012 (0.000-0.034) ng/mL Total Protein (6.3-8.2) g/dL Albumin (3.5-5.0) g/dL Disposition Clinical Impression: Chest pain Disposition: LEFT AGAINST MEDICAL ADVICE Instructions (If sedation given, give patient instructions): Chest Pain (ED) Is patient prescribed a controlled substance at d/c from ED?: No Referrals: Keith Prince DO [Primary Care Provider] - 1-2 days Time of Disposition: 13:59
[2023-02-17 11:38] VITALS: RESP 18
[2023-02-17 11:42] LABS: Basophils % (A) 0 %; Eosinophils # (A) 0.2 k/uL (0-0.7); Eosinophils % (A) 1 %; HCT 38.8 % (34.0-46.0); HGB 12.9 gm/dL (11.4-16.0); Lymphocytes % (A) 26 %; MCH 29.8 pg (25.0-35.0); MCHC 33.2 g/dL (31.0-37.0); MCV 89.7 fL (80.0-100.0); Mean Platelet Volume 8.4; Monocytes # (A) 0.5 k/uL (0-1.0); Monocytes % (A) 4 %; Neutrophils # (A) 7.6 k/uL (1.3-7.7); Neutrophils % (A) 66 %; Platelet Count 307 k/uL (150-450); RBC 4.33 m/uL (3.80-5.40); RDW 13.4 % (11.5-15.5); WBC 11.5 k/uL (3.8-10.6)
[2023-02-17 11:57] LABS: ALT 21 U/L (4-34); AST 21 U/L (14-36); African American GFR (CKD) >90 (>60 ml/min/1.73 sqM); Alkaline Phosphatase 51 U/L (38-126); Anion Gap 8 mmol/L; Blood Urea Nitrogen 16 mg/dL (7-17); Calcium 9.2 mg/dL (8.4-10.2); Carbon Dioxide 26 mmol/L (22-30); Chloride 104 mmol/L (98-107); Glucose 96 mg/dL (74-99); Non-African American GFR(CKD) >90 (>60 ml/min/1.73 sqM); Potassium 4.2 mmol/L (3.5-5.1); Sodium 138 mmol/L (137-145); Total Bilirubin 0.6 mg/dL (0.2-1.3); Total Protein 7.1 g/dL (6.3-8.2)
[2023-02-17 12:09] LABS: INR 0.9 (<1.2); Prothrombin Time 10.1 sec (9.0-12.0)
[2023-02-17 12:15] LABS: Partial Thromboplastin Time 21.8 sec (22.0-30.0)
--- NOTE | 2023-02-17 12:37 | CT ---
EXAMINATION TYPE: CT chest angio for PE DATE OF EXAM: 02/17/2023 COMPARISON: 01/05/2022 HISTORY: 47-year-old female with difficulty breathing, shortness of breath, Chest pains, history of b lood clots TECHNIQUE: Contiguous axial scanning of the chest performed with IV Contrast, patient injected with 1 00 mL of Isovue 370. Coronal and sagittal MIP reconstructions performed. CT DLP: 991.3 mGycm Automated exposure control for dose reduction was used. 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 There appears to be mild apical scarr ing narrowing at the origin of the brachiocephalic artery and also at the origin of the left common c arotid artery. There is suboptimal opacification of the pulmonary arterial system. No large central pulmonary embolu s is seen. The degree of opacification markedly limits assessment of lobar, segmental, and more dista l branch emboli. There is further limitation due to breathing motion artifact affecting the lower libia gs. No thoracic lymphadenopathy by CT size criteria. Prominent breathing motion at the lower lungs limits evaluation. Mild diffuse bronchial wall thickeni ng. The band of scar redemonstrated anterior left upper lobe. No consolidation or pleural effusion. There is a small to moderate-sized hilar hernia. Lap band device noted. Cholecystectomy clips. Mild to moderate degenerative disc disease mid to lower thoracic spine. IMPRESSION: 1. SUBOPTIMAL CONTRAST BOLUS. NO LARGE CENTRAL PULMONARY EMBOLUS IS SEEN. MANY OF THE LOBAR, SEGMENTA L, AND MORE DISTAL BRANCHES ARE EITHER VERY LIMITED OR NONDIAGNOSTIC AND EMBOLI IN THESE LOCATIONS CA NNOT BE EXCLUDED ON THE BASIS OF THIS EXAM. 2. MILD DIFFUSE BRONCHIAL WALL THICKENING SUGGESTS BRONCHITIS OR CHRONIC ASTHMA. STABLE BANDLIKE SCAR ANTERIOR LEFT UPPER LOBE. 3. SMALL TO MODERATE-SIZED HIATAL HERNIA. LAP BAND DEVICE IN PLACE.
[2023-02-17 14:06] VITALS: BP 132/74; PULSE 72
== END 2023-02-17 14:06 | disposition left against medical advice (07) ==
LOC: EC 10:29
DX: R07.89 Other chest pain (principal); K44.9 Diaphragmatic hernia without obstruction or gangrene; J98.4 Other disorders of lung; E78.00 Pure hypercholesterolemia, unspecified; J45.909 Unspecified asthma, uncomplicated; I10 Essential (primary) hypertension; E07.9 Disorder of thyroid, unspecified; F41.9 Anxiety disorder, unspecified; F17.290 Nicotine dependence, other tobacco product, uncomplicated; Z86.711 Personal history of pulmonary embolism; Z79.890 Hormone replacement therapy; Z79.899 Other long term (current) drug therapy; Z79.82 Long term (current) use of aspirin; Z88.2 Allergy status to sulfonamides; Z53.29 Procedure and treatment not carried out because of patient's decision for other reasons
CPT/HCPCS: 36415; 93005; 85379; 80053; 83605; 84484; 85025; 85610; 85730; 71275; 99285; Q9967

== ENCOUNTER → 2023-04-24 | Outpatient (CLI) | payer BC ==
--- NOTE | 2023-04-26 17:47 | CA ---
Transthoracic Echo Report Name: Kylee Morrell Age: 47 Gender: F : 1975 Exam Date: 04/24/2023 14:58 Exam Location: [facility] Ht (in): 63 Wt (lb): 292 Ordering Physician: Keith Prince DO Attending/Referring Phys: Cover Remover Nidhi Moulton RDCS Procedure CPT: Indications: I25.110 Cardiac Hx: Hx of AOV replacement, Hx of blood clot Technical Quality: Poor Contrast 1: Total Dose (mL): Contrast 2: Total Dose (mL): MEASUREMENTS (Male / Female) Normal Values 2D ECHO LV Diastolic Diameter PLAX 4.3 cm 4.2 - 5.9 / 3.9 - 5.3 cm LV Systolic Diameter PLAX 2.9 cm IVS Diastolic Thickness 1.6 cm 0.6 - 1.0 / 0.6 - 0.9 cm LVPW Diastolic Thickness 1.4 cm 0.6 - 1.0 / 0.6 - 0.9 cm LV Relative Wall Thickness 0.7 RV Internal Dim ED PLAX 3.1 cm LVOT Diameter 1.8 cm LA Systolic Diameter LX 3.9 cm 3.0 - 4.0 / 2.7 - 3.8 cm LV Diastolic Volume MOD BP 60.6 cm??? 67 - 155 / 56 - 104 cm??? LV Systolic Volume MOD BP 28.5 cm??? 22 - 58 / 19 - 49 cm??? LV Ejection Fraction MOD BP 53.0 % >= 55 % LV Cardiac Index MOD BP 869.8 cm???/min???m??? LV Diastolic Volume MOD 4C 57.6 cm??? LV Systolic Volume MOD 4C 24.6 cm??? LV Ejection Fraction MOD 4C 57.3 % LV Cardiac Index MOD 4C 893.3 cm???/min???m??? LV Diastolic Length 4C 6.6 cm LV Systolic Length 4C 5.7 cm LV Diastolic Volume MOD 2C 61.2 cm??? LV Systolic Volume MOD 2C 29.4 cm??? LV Ejection Fraction MOD 2C 52.0 % LV Cardiac Index MOD 2C 862.1 cm???/min???m??? LV Diastolic Length 2C 7.0 cm LV Systolic Length 2C 6.5 cm LA Volume 44.2 cm??? 18 - 58 / 22 - 52 cm??? M-MODE Aortic Root Diameter MM 2.7 cm MV E Point Septal Separation 0.6 cm DOPPLER AV Peak Velocity 250.1 cm/s AV Peak Gradient 25.0 mmHg AV Mean Velocity 166.8 cm/s AV Mean Gradient 12.7 mmHg AV Velocity Time Integral 52.7 cm LVOT Peak Velocity 139.4 cm/s LVOT Peak Gradient 7.8 mmHg AV Area Cont Eq pk 1.4 cm??? MV Area PHT 2.2 cm??? Mitral E Point Velocity 109.5 cm/s Mitral A Point Velocity 106.8 cm/s Mitral E to A Ratio 1.0 MV Deceleration Time 349.2 ms MV E' Velocity 6.0 cm/s Mitral E to MV E' Ratio 18.4 FINDINGS Left Ventricle Left ventricular ejection fraction is estimated at 55-60 %. Left ventricular cavity size normal. Severely increased septal wall thickness. Moderately increased posterior wall thickness. Mildly decreased left ventricular ejection fraction. Right Ventricle Normal right ventricular size. Unable to estimate the right ventricular systolic pressure. Right Atrium Normal right atrial size. Left Atrium Mildly increased left atrial diameter. Mitral Valve Structurally normal mitral valve. Mitral annular calcification. Trace mitral regurgitation. Aortic Valve Bovine AOV with mean gradient of 13 mmHg. There is High velocity on ascending AO 3.8 m/s Tricuspid Valve Tricuspid valve not well visualized. Pulmonic Valve Pulmonic valve not well visualized. Pericardium No pericardial effusion. Aorta Normal size aortic root and proximal ascending aorta. CONCLUSIONS Technically suboptimal study secondary to poor echo windows Left ventricular systolic function is normal with an ejection fraction of 60% Patient has a history of fighting valve replacement. I aortic valve is not well visualized on this study Consider transesophageal echo if clinically indicated This study was not available to read due to technical problems for the last 2 days hence it is being right now Previewed by: Dr. Ralph Ellis MD (Electronically Signed) Final Date: 26 April 2023 17:46
== END | disposition home or self-care (01) ==
LOC: RADECHMAIN 14:52
PROVIDERS: ATTEND Family Medicine
DX: I25.110 Atherosclerotic heart disease of native coronary artery with unstable angina pectoris (principal); I34.0 Nonrheumatic mitral (valve) insufficiency; I34.81 Nonrheumatic mitral (valve) annulus calcification; Z86.711 Personal history of pulmonary embolism
CPT/HCPCS: 93306

== ENCOUNTER 2024-02-23 17:19 | Emergency (ER) | payer BC ==
[2024-02-23 17:23] VITALS: TEMP 98.3
--- NOTE | 2024-02-23 18:03 | ED ---
Chest Pain HPI - General Chief Complaint: Chest Pain Stated Complaint: SOB/Hypertension Time Seen by Provider: 02/23/24 17:25 Source: patient, RN notes reviewed, old records reviewed Mode of arrival: ambulatory Limitations: no limitations - History of Present Illness Initial Comments: This is a 48-year-old female to the ER for evaluation patient presents for tachycardia lightheadedness and dizziness with some chest pain today. Chest pain to her back. Pain is present here in the emergency department although heart rate does not feel to be improved. Patient does have strong history of heart disease MD Complaint: chest pain Pain Location: substernal, left chest Pain Radiation: none, back Severity: mild, moderate Quality: aching Consistency: intermittent Improves With: nothing, nitroglycerin Worsens With: nothing Anginal Symptoms: nausea, diaphoresis, dyspnea, sense of impending doom Other Symptoms: palpitations Treatments Prior to Arrival: none - Related Data Home Medications Medication Instructions Recorded Confirmed Cyanocobalamin [Vitamin B-12] 2,000 mcg PO DAILY 03/18/15 02/23/24 ALPRAZolam [Xanax] 1 mg PO BID PRN 03/20/21 02/23/24 Albuterol Sulfate [Proventil Hfa] 1 puff INHALATION RT-Q4H PRN 03/20/21 02/23/24 hydroCHLOROthiazide [Hydrodiuril] 25 mg PO DAILY 03/20/21 02/23/24 traMADol HCL [Ultram] 50 mg PO BID PRN 03/20/21 02/23/24 Metoprolol Succinate (ER) [Toprol 100 mg PO DAILY 03/31/21 02/23/24 XL] Escitalopram [Lexapro] 20 mg PO DAILY 10/23/21 02/23/24 Aspirin [Adult Low Dose Aspirin EC] 81 mg PO DAILY 02/16/22 02/23/24 Triamcinolone Acetonide [Nasacort] 1 spray EA NOSTRIL DAILY PRN 02/16/22 02/23/24 Cholecalciferol [Vitamin D3 (125 125 mcg PO DAILY 02/23/24 02/23/24 Mcg = 5000 Iu)] Levothyroxine Sodium [Synthroid] 75 mcg PO DAILY 02/23/24 02/23/24 Losartan Potassium [Cozaar] 100 mg PO DAILY 06/16/24 06/16/24 Allergies Allergy/AdvReac Type Severity Reaction Status Date / Time amoxicillin [From Augmentin] Allergy Rash/Hives Verified 02/23/24 19:58 clavulanic acid Allergy Rash/Hives Verified 02/23/24 19:58 [From Augmentin] codeine Allergy Rash/Hives Verified 02/23/24 19:58 Sulfa (Sulfonamide Allergy Rash/Hives Verified 02/23/24 19:58 Antibiotics) Review of Systems ROS Statement: Those systems with pertinent positive or pertinent negative responses have been documented in the HPI. ROS Other: All systems not noted in ROS Statement are negative. EKG Findings - EKG Comments: EKG Findings:: EKG is sinus tachycardia 112 HI 143 QRS 110 QTc 438 - EKG Results: EKG: interpreted by [facility] Past Medical History Past Medical History: Asthma, GERD/Reflux, Hyperlipidemia, Hypertension, Pulmonary Embolus (PE), Thyroid Disorder Additional Past Medical History / Comment(s): heart murmur. defects with heart at . History of Any Multi-Drug Resistant Organisms: None Reported Past Surgical History: Adenoidectomy, Bariatric Surgery, Cardiac Valve Replacement, Section, Cholecystectomy, Heart Catheterization, Tonsillectomy Additional Past Surgical History / Comment(s): open heart aug 2015, april 2017. cow valve - main aortic valve. bicupsid valve repl. Past Anesthesia/Blood Transfusion Reactions: No Reported Reaction Past Psychological History: Anxiety Smoking Status: Light tobacco smoker, Vaper Past Alcohol Use History: Occasional Past Drug Use History: None Reported - Past Family History Father Family Medical History: Coronary Artery Disease (CAD), Diabetes Mellitus, Hypertension Additional Family Medical History / Comment(s): at 47 Heart issues General Exam Limitations: no limitations General appearance: alert, in no apparent distress, anxious, obese Head exam: Present: atraumatic, normocephalic, normal inspection Eye exam: Present: normal appearance, PERRL, EOMI. Absent: scleral icterus, conjunctival injection, periorbital swelling ENT exam: Present: normal exam, mucous membranes moist Neck exam: Present: normal inspection. Absent: tenderness, meningismus, lymphadenopathy Respiratory exam: Present: normal lung sounds bilaterally. Absent: respiratory distress, wheezes, rales, rhonchi, stridor Cardiovascular Exam: Present: normal rhythm, tachycardia, normal heart sounds. Absent: systolic murmur, diastolic murmur, rubs, gallop, clicks GI/Abdominal exam: Present: soft, normal bowel sounds. Absent: distended, tenderness, guarding, rebound, rigid Extremities exam: Present: normal inspection, full ROM, normal capillary refill. Absent: tenderness, pedal edema, joint swelling, calf tenderness Back exam: Present: normal inspection Neurological exam: Present: alert, oriented X3, CN II-XII intact Psychiatric exam: Present: normal affect, normal mood Skin exam: Present: warm, dry, intact, normal color. Absent: rash Course Vital Signs 02/23/24 02/23/24 02/23/24 17:20 17:42 18:00 Temperature 98.3 F Pulse Rate 131 H 120 H 112 H Respiratory 24 13 18 Rate Blood Pressure 156/101 139/74 O2 Sat by Pulse 99 97 Oximetry 02/23/24 02/23/24 19:00 20:11 Temperature Pulse Rate 96 91 Respiratory 18 17 Rate Blood Pressure 157/112 152/88 O2 Sat by Pulse 96 96 Oximetry - Reevaluation(s) Reevaluation #1: 02/23/24 18:02 Medical records reviewed Reevaluation #2: 02/23/24 18:02 Patient symptoms unchanged Reevaluation #3: 02/23/24 18:02 Patient informed of results questions answered Reevaluation #4: 02/23/24 18:03 Was pt. sent in by a medical professional or institution ([place] [facility], TICKET CLERK, urgent care, hospital, or snf...) When possible be specific @ -no Did you speak to anyone other than the patient for history (EMS, parent, family, police, friend...)? What history was obtained from this source @ -no Did you review nursing and triage notes (agree or disagree)? Why? @ -agree Are old charts reviewed (outside hosp., previous admission, EMS record, old EKG, old radiological studies, urgent care reports/EKG's, snf records)? Report findings @ -yes Differential Diagnosis (chest pain, altered mental status, abdominal pain women, abdominal pain men, vaginal bleeding, weakness, fever, dyspnea, syncope, headache, dizziness, GI bleed, back pain, seizure, CVA, palpatations, mental health, musculoskeletal)? @ -prior EKG interpreted by me (3pts min.). @ -yes X-rays interpreted by me (1pt min.). @ -yes negative for acute disease CT interpreted by me (1pt min.). @ -Yes negative for acute disease U/S interpreted by me (1pt. min.). @ -no What testing was considered but not performed or refused? (CT, X-rays, U/S, labs)? Why? @ -none What meds were considered but not given or refused? Why? @ -none Did you discuss the management of the patient with other professionals (professionals i.e. , PA, TICKET CLERK, lab, RT, psych nurse, social work job titles, roll hauler, teacher, preventive medicine officer, clinical case manager)? Give summary @ -no Was smoking cessation discussed for >3mins.? @ -no Was critical care preformed (if so, how long)? @ -no Were there social determinants of health that impacted care today? How? (Homelessness, low income, unemployed, alcoholism, drug addiction, transportation, low edu. Level, literacy, decrease access to med. care, long-term, rehab)? @ -none Was there de-escalation of care discussed even if they declined (Discuss DNR or withdrawal of care, Hospice)? DNR status @ -no What co-morbidities impacted this encounter? (DM, HTN, Smoking, COPD, CAD, Cancer, CVA, ARF, Chemo, Hep., AIDS, mental health diagnosis, sleep apnea, morbid obesity)? @ -none Was patient admitted / discharged? Hospital course, mention meds given and route, prescriptions, significant lab abnormalities, going to OR and other pertinent info. @ - 48 female with chest pain. Patient has no acute chest pain found here in the ER no acute cause, patient's chest pain is improved resolved and patient can be discharged home' discharge Undiagnosed new problem with uncertain prognosis? @ -no Drug Therapy requiring intensive monitoring for toxicity (Heparin, Nitro, Insulin, Cardizem)? @ -no Were any procedures done? @ -no Diagnosis/symptom? @ -Chest pain Acute, or Chronic, or Acute on Chronic? @ -Acute Uncomplicated (without systemic symptoms) or Complicated (systemic symptoms)? @ -Complicated Side effects of treatment? @ -no Exacerbation, Progression, or Severe Exacerbation? @ -exacerbation Poses a threat to life or bodily function? How? (Chest pain, [place], [place], pneumonia, PE, COPD, DKA, ARF, appy, cholecystitis, CVA, Diverticulitis, Homicidal, Suicidal, threat to staff... and all critical care pts) @ -yes with chest pain Reevaluation #5: Differential Palpitations Ventricular arrhythmias, atrial arrhythmias, myocardial infarction, anemia, thyrotoxicosis, electrolyte imbalance, hypokalemia, pulmonary embolism, pulm onary disease, drugs, alcohol, anxiety, stress.... This is not meant to be an all-inclusive list. Chest Pain MDM - MDM 48 female with chest pain. Patient has no acute chest pain found here in the ER no acute cause, patient's chest pain is improved resolved and patient can be discharged home Disposition Clinical Impression: Chest pain, Tachycardia, Palpitations Disposition: HOME SELF-CARE Condition: Fair Instructions (If sedation given, give patient instructions): Chest Pain (ED), Heart Palpitations (ED) Is patient prescribed a controlled substance at d/c from ED?: No Referrals: Keith Prince DO [Primary Care Provider] - 1-2 days Time of Disposition: 20:20
[2024-02-23 18:08] LABS: Basophils # (A) 0.1 k/uL (0-0.2); Basophils % (A) 1 %; Eosinophils # (A) 0.2 k/uL (0-0.7); Eosinophils % (A) 2 %; HGB 14.7 gm/dL (11.4-16.0); Lymphocytes # (A) 1.7 k/uL (1.0-4.8); Lymphocytes % (A) 18 %; MCH 30.2 pg (25.0-35.0); MCHC 33.5 g/dL (31.0-37.0); MCV 90.3 fL (80.0-100.0); Mean Platelet Volume 8.2; Monocytes # (A) 0.4 k/uL (0-1.0); Monocytes % (A) 4 %; Neutrophils % (A) 74 %; Platelet Count 290 k/uL (150-450); RBC 4.88 m/uL (3.80-5.40); RDW 12.6 % (11.5-15.5); WBC 9.4 k/uL (3.8-10.6)
[2024-02-23 18:18] LABS: ALT 24 U/L (4-34); AST 32 U/L (14-36); African American GFR (CKD) >90 (>60 ml/min/1.73 sqM); Albumin 4.2 g/dL (3.5-5.0); Alkaline Phosphatase 68 U/L (38-126); Anion Gap 9 mmol/L; Blood Urea Nitrogen 10 mg/dL (7-17); Calcium 8.9 mg/dL (8.4-10.2); Carbon Dioxide 24 mmol/L (22-30); Chloride 104 mmol/L (98-107); Glucose 139 mg/dL (74-99); Non-African American GFR(CKD) >90 (>60 ml/min/1.73 sqM); Potassium 3.8 mmol/L (3.5-5.1); Sodium 137 mmol/L (137-145); Total Bilirubin 1.3 mg/dL (0.2-1.3); Total Protein 7.4 g/dL (6.3-8.2)
--- NOTE | 2024-02-23 18:20 | XR ---
EXAMINATION TYPE: XR chest 2V DATE OF EXAM: 02/23/2024 6:12 PM CLINICAL INDICATION:Female, 48 years old with history of chest pain; COMPARISON: Chest radiographs from 10/23/2021 TECHNIQUE: XR chest 2V Frontal and lateral views of the chest. FINDINGS: Lungs/Pleura: There is no evidence of pleural effusion, focal consolidation, or pneumothorax. Pulmonary vascularity: Unremarkable. Heart/mediastinum: Cardiomediastinal silhouette is unremarkable. Musculoskeletal: No acute osseous pathology. Midline sternotomy wires are noted. IMPRESSION: No acute cardiopulmonary disease/process.
[2024-02-23 18:41] LABS: Magnesium 1.6 mg/dL (1.6-2.3)
[2024-02-23] MEDS: LORazepam 2 MG/ML INJ IV STA (19:06)
--- NOTE | 2024-02-23 19:30 | CT ---
EXAMINATION TYPE: CT angio chest CT DLP: 1157.2 mGycm, Automated exposure control for dose reduction was used. DATE OF EXAM: 02/23/2024 6:55 PM COMPARISON: 01/05/2022 CLINICAL INDICATION:Female, 48 years old with history of pe; dizziness, fatigue, jittery. elevated d dimer. TECHNIQUE/CONTRAST: CTA scan of the thorax is performed with IV Contrast, patient injected with 100ml mL of Isovue 370, M IP images are created and reviewed these are created on a separate workstation.. FINDINGS: Pulmonary Artery: Nondiagnostic exam from embolism due to bolus timing. Evidence for a filling defect within the pulmonary vasculature to suggest acute pulmonary embolism. The pulmonary artery is of no rmal size. Lungs/Pleura: No evidence of focal consolidation, pleural effusion or pneumothorax. Airway: Large airways are patent. Heart: Heart is within normal limits for size. Aortic valve repair changes. Ascending thoracic aorta and its branches are intact. No evidence for aortic aneurysm. Vasculature: No evidence of aortic aneurysm. Mediastinum: No gross evidence of adenopathy. Musculoskeletal: No acute osseous abnormalities, sternotomy wires are present. Soft Tissues/lymph nodes: Unremarkable. Lower neck: No significant findings. Upper Abdomen: Cystic (with hardware in appropriate position. Diffuse low-attenuation of the liver IMPRESSION: 1. Nondiagnostic for pulmonary embolism due to bolus timing. 2. Postsurgical changes to the aortic valve. No evidence for aneurysm or evidence for acute thoracic process. 3. Hepatic steatosis. 4. Gastric lap band which appears in appropriate position.
[2024-02-23] MEDS: SODIUM CHLORIDE 0.9% 1,000 ML IV STA (20:06)
[2024-02-23] MEDS: SODIUM CHLORIDE 0.9% 500 ML 500 ML IV STA (20:07)
[2024-02-23 20:13] VITALS: BP 152/88; PULSE 91; RESP 17
== END 2024-02-23 20:52 | disposition home or self-care (01) ==
LOC: EC 17:19
DX: R07.9 Chest pain, unspecified (principal); R00.0 Tachycardia, unspecified; R00.2 Palpitations; F17.290 Nicotine dependence, other tobacco product, uncomplicated; Z88.0 Allergy status to penicillin; Z88.1 Allergy status to other antibiotic agents; Z88.2 Allergy status to sulfonamides; Z88.5 Allergy status to narcotic agent
CPT/HCPCS: 36415; 93005; 85379; 83880; 80053; 83735; 84484; 85025; 71046; 71275; 99285; 96374; 96361; J2060; Q9967

== ENCOUNTER 2024-04-13 10:20 | Inpatient (IN) | payer BC ==
[2024-04-13] MEDS ORDERED: HEPARIN SOD,PORK IN 0.45% NACL 250 ML IV ONE (19:47)
[2024-04-13] MEDS ORDERED: HEPARIN SODIUM 1,000 UN/ML (10ML VL) ONE (19:47)
[2024-04-13] MEDS ORDERED: KETOROLAC 15 MG/ML 1 ML VIAL ONE (21:49)
[2024-04-14] MEDS ORDERED: HEPARIN SOD,PORK IN 0.45% NACL 250 ML IV ONE ×2 (09:31→22:57)
[2024-04-14] MEDS ORDERED: LOSARTAN 50 MG TAB ONE (22:50)
[2024-04-14] MEDS ORDERED: KETOROLAC 15 MG/ML 1 ML VIAL ONE (22:51)
[2024-04-14] MEDS ORDERED: METOPROLOL TARTRATE 50 MG TAB ONE (22:51)
[2024-04-15] MEDS ORDERED: LEVOTHYROXINE 75 MCG TAB ONE (07:06)
[2024-04-15] MEDS ORDERED: ASPIRIN 81 MG ONE (09:08)
[2024-04-15] MEDS ORDERED: hydroCHLOROthiazide 12.5 MG CAP ONE (09:08)
[2024-04-15] MEDS ORDERED: ESCITALOPRAM 20 MG TAB ONE (09:09)
[2024-04-15] MEDS ORDERED: APIXABAN 5 MG TAB ONE (12:19)
--- NOTE | 2024-06-08 14:37 | XR ---
Patient yKlee Luong ID [id number] Order # EXAMINATION TYPE: XR chest 2V DATE OF EXAM: 04/26/2024 COMPARISON: No comparison available on downtime PACS. INDICATION: Short of breath TECHNIQUE: Frontal and lateral views of the chest are obtained. FINDINGS: The heart size is normal. Sternotomy wires are in the midline. The pulmonary vasculature is normal. Minimal infiltrate is within the lingula. Correlate for atelectasis or pneumonia. Preliminary result s were provided by the on-call radiologist. IMPRESSION: 1. Minimal infiltrate within the lingula. Correlate for atelectasis or pneumonia
--- NOTE | 2024-06-09 12:20 | US ---
Patient: Kylee Morrell Ordering Physician: Unknown, Unknown ID: [id number] Phone, Pager: Phone: N/A Pager: N/A : 1975 Age/Gender: 48Y, N/A Primary Location: N/A Procedure: US venous doppler du plex LE BI Study Date: 04/14/2024 11:18:00 AM EXAMINATION TYPE: US venous doppler duplex LE BI DATE OF EXAM: 05/02/2024 3:50 PM COMPARISON: NONE CLINICAL INDICATION: Hx PE 2 years ago; New PE now HTN SIDE PERFORMED: Bilateral TECHNIQUE: The lower extremity deep venous system is examined utilizing real time linear array sonog maricruz with graded compression, doppler sonography and color-flow sonography. VESSELS IMAGED: Common Femoral Vein Deep Femoral Vein Greater Saphenous Vein * Femoral Vein Popliteal Vein Small Saphenous Vein * Proximal Calf Veins (* superficial vessels) Right Leg: Deep vein thrombosis in the proximal popliteal vein and distal popliteal vein. Left Leg: Negative for DVT IMPRESSION: DVT seen right proximal popliteal vein to distal popliteal vein KN - spoke with ESTHER Diaz 04/14/2024
--- NOTE | 2024-06-09 14:19 | CT ---
EXAM CT angiogram chest PE protocol. DATE OF EXAM: 04/13/24 Reason for study: Shortness of breath COMPARISON: No None, please note PACS downtime occurred during the radiologist interpretation of thes e images with limited priors/reports. ne. TECHNIQUE: Axial CT images were obtained through the pulmonary vasculature after administration of 10 0 cc of Isovue-370. Multiplanar reformatted images were then made. Maximum intensity projection image s were obtained. One or more CT dose reduction strategies were utilized during this examination. Tot al DLP administered was 944.2, mGycm . FINDINGS: Pulmonary Artery: Filling defects within the bilateral pulmonary arteries extending into the lobar, s egmental and subsegmental branches of the bilateral lower lobes and right middle lobe. Also affecting the upper lobes to a lesser extent. RV/LV = 33/41 0.75. Lungs/Pleura: No evidence of focal consolidation, pleural effusion or pneumothorax. Airway: Patent and grossly unremarkable. Heart: Within normal limits for size. Aortic valve alveolar surgical changes. Vasculature: No evidence of aortic aneurysm. Mediastinum: No gross evidence of adenopathy. Musculoskeletal: No acute osseous abnormalities, sternotomy changes present. Soft Tissues: Unremarkable. Lower neck: No significant findings. Upper Abdomen: Gastric lap band is present and appears in appropriate position. Small hiatal hernia. The gallbladder is surgically absent. Hepatic steatosis. IMPRESSION: Bilateral pulmonary embolus without evidence for right heart strain. Correlate with serum markers. Called findings to DR huerta 657pm 04/13/2024 [facility], , 06/09/2024 2:17 PM
== END 2024-04-15 16:40 | disposition home or self-care (01) | DRG 175 ==
LOC: EC 10:20 → 3NCARDOBS 20:00 → EC 04-15 15:15
PROVIDERS: ADMIT Hospitalist; ATTEND Hospitalist
DX: I26.99 Other pulmonary embolism without acute cor pulmonale (principal); J96.01 Acute respiratory failure with hypoxia; I82.4Z1 Acute embolism and thrombosis of unspecified deep veins of right distal lower extremity; Q23.1 Congenital insufficiency of aortic valve; F17.290 Nicotine dependence, other tobacco product, uncomplicated; E66.01 Morbid (severe) obesity due to excess calories; Z95.1 Presence of aortocoronary bypass graft; I25.10 Atherosclerotic heart disease of native coronary artery without angina pectoris; J45.909 Unspecified asthma, uncomplicated; E03.9 Hypothyroidism, unspecified; I10 Essential (primary) hypertension; Z79.82 Long term (current) use of aspirin; Z79.890 Hormone replacement therapy; Z79.899 Other long term (current) drug therapy; Z88.5 Allergy status to narcotic agent; Z88.0 Allergy status to penicillin; Z88.2 Allergy status to sulfonamides; Z86.711 Personal history of pulmonary embolism
CPT/HCPCS: 71046; 71275; 93970; 99285

== ENCOUNTER → 2024-05-12 | Outpatient (CLI) | payer BC ==
[2024-05-12 10:46] LABS: ALT 13 U/L (8-44); AST 18 U/L (13-35); Albumin 4.1 g/dL (3.8-4.9); Albumin/Globulin Ratio 1.52 Ratio (1.60-3.17); Alkaline Phosphatase 59 U/L (41-126); BUN/Creat Ratio 14.86 Ratio (12.00-20.00); Blood Urea Nitrogen 10.4 mg/dL (9.0-27.0); Calcium 9.4 mg/dL (8.7-10.3); Carbon Dioxide 24.1 mmol/L (21.6-31.8); Chloride 101 mmol/L (96-109); Globulin 2.7 g/dL (1.6-3.3); Glucose 122 mg/dL (70-110); Potassium 4.3 mmol/L (3.5-5.5); Rheumatoid Factor, Qnt <15 IU/mL (0-15); Sodium 138 mmol/L (135-145); T4, Free (Free Thyroxine) 1.14 ng/dL (0.80-1.80); Total Bilirubin 0.7 mg/dL (0.3-1.2); Total Protein 6.8 g/dL (6.2-8.2)
[2024-05-12 10:48] LABS: C-Peptide 7.34 ng/mL (0.81-3.85)
[2024-05-12 15:00] LABS: Anti-DNA, DS unit <1.0 IU/mL; DNA Double-Stranded Negative (Negative)
[2024-05-12 19:09] LABS: Clam IgE <0.10 kU/L; Codfish IgE <0.10 kU/L; Peanut IgE <0.10 kU/L; Scallop IgE <0.10 kU/L; Shrimp IgE <0.10 kU/L; Soybean IgE <0.10 kU/L; Walnut IgE (Food) <0.10 kU/L
[2024-05-12 21:32] LABS: Egg White IgE <0.10 kU/L
[2024-05-13 09:36] LABS: HLA B27 NEGATIVE
[2024-05-13 15:13] LABS: Alt. alternata IgE Class CLASS 0; Alternaria alternata IgE <0.10 kU/L (<0.10); Asperg. fumagatus IgE <0.10 kU/L (<0.10); Asperg. fumagatus IgE Class CLASS 0; Bermuda Grass IgE <0.10 kU/L (<0.10); Birch(Com.Silvr) IgE <0.10 kU/L (<0.10); Birch(Com.Silvr) IgE Class CLASS 0; Cat Epith & Dander IgE <0.10 kU/L (<0.10); Cat Epith & Dander IgE Class CLASS 0; Clad herbarum IgE <0.10 kU/L (<0.10); Clad herbarum IgE Class CLASS 0; Cockroach IgE <0.10 kU/L (<0.10); Cottonwood IgE <0.10 kU/L (<0.10); Dermato. Pteronyssinus Class CLASS 0; Dermato. Pteronyssinus IgE <0.10 kU/L (<0.10); Dermato. farinae IgE <0.10 kU/L (<0.10); Dermato. farinae IgE Class CLASS 0; Dog Dander IgE <0.10 kU/L (<0.10); Elm IgE <0.10 kU/L (<0.10); IgE (Allergen) 18.8 IU/mL (<114.0); Maple (Box Elder) IgE <0.10 kU/L (<0.10); Maple (Box Elder) IgE Class CLASS 0; Mountain Cedar IgE <0.10 kU/L (<0.10); Mountain Cedar IgE Class CLASS 0; Mouse Urine IgE Class CLASS 0; Mouse Urine Proteins,IgE <0.10 kU/L (<0.10); Nettle IgE <0.10 kU/L (<0.10); Nettle IgE Class CLASS 0; Oak IgE <0.10 kU/L (<0.10); Penicillium chrysogenum IgE <0.10 kU/L (<0.10); Penicillium chrysogenum IgE Cl CLASS 0; Rough Marshelder IgE <0.10 kU/L (<0.10); Rough Marshelder IgE Class CLASS 0; Timothy Grass IgE <0.10 kU/L (<0.10); Timothy Grass IgE Class CLASS 0; White Ash IgE Class CLASS 0
== END | disposition home or self-care (01) ==
LOC: LABWHC1 07:02
PROVIDERS: ATTEND Family Medicine
DX: R73.9 Hyperglycemia, unspecified
CPT/HCPCS: 36415; 80053; 82533; 82785; 83036; 84439; 84443; 84681; 85652; 86003; 86038; 86225; 86431; 86812

== ENCOUNTER → 2024-06-02 | Outpatient (CLI) | payer BC ==
[2024-06-02 13:29] VITALS: BP 182/103; PULSE 79; RESP 16; TEMP 99.8; BMI 53.6
--- NOTE | 2024-06-02 17:00 | FL ---
EXAMINATION TYPE: FL barium swallow DATE OF EXAM: 06/02/2024 COMPARISON: HISTORY: Dysphagia reflux TECHNIQUE: A single contrast UGI study is performed. FINDINGS: Lap band position appears normal. With swallowing contrast transits the esophagus to the lap band wit hout hesitancy or stenosis. Contrast passes through the lap band without hesitancy. No hiatal hernia is identified. No prolapse evident.. IMPRESSION: 1. Normal transit through the lap band. No stenosis evident [facility], , 06/02/2024 4:58 PM
--- NOTE | 2024-06-02 20:13 | P.BASOAP ---
Subjective Progress Note Date: 06/02/24 Principal diagnosis: Dysphagia Patient presents with complaints of dysphagia to solids for the last several weeks. She says she thought something was stuck about a month ago or so and had a significant vomiting that evening. Patient was hospitalized 1 week ago for DVT/PE. Patient says she has had for dysphagia to solids. Even liquids are difficult at times. Weight increased from 2 92-3 03. Patient's last upper GI 2 years ago. Objective - Vital Signs Vital signs: Vital Signs Temp 99.8 F H 06/02/24 13:27 Pulse 79 06/02/24 13:27 Resp 16 06/02/24 13:27 BP 182/103 06/02/24 13:27 Pulse Ox FiO2 Intake & Output 06/02/24 06/02/24 06/03/24 06:59 18:59 06:59 Weight 137.438 kg - Exam Abdomen: Soft, nontender, nondistended Assessment/Plan (1) Morbid obesity Narrative/Plan: 48-year-old female with dysphagia and vomiting. Options reviewed. Will loosen the patient's band at this time. The patient's lap band port was palpated. The site was aseptically prepped. The Delatorre needle was advanced into the port. A total of 2.5 ml of fluid was removed leaving a total of 1.[address] Pressure was held and a sterile dressing was applied. Following that patient tried some liquids in the form of water and had persistent dysphagia. She was sent to radiology for upper GI upper GI shows mild appropriate narrowing at the band site without evidence of prolapse, obstruction, foreign body, or erosion. Plan follow-up 1 to 2 months. Plan: Date: 06/02/24 Initial Weight: 102.33 kg Initial BMI: 39.9 Current Weight: 137.438 kg Current BMI: 53.6 Type of Surgery: Adjustable Gastric Banding Total Volume in Band: 0.2 Previous Volume: Volume Removed: Volume Added: Band Size:
== END ==
LOC: BARWHC3 13:15
PROVIDERS: ATTEND Surgery
CPT/HCPCS: 43999; 74220

== ENCOUNTER → 2024-07-14 | Outpatient (CLI) | payer BC ==
[2024-07-14 13:44] VITALS: BP 164/76; PULSE 102; RESP 16; TEMP 99.1; BMI 55.0
--- NOTE | 2024-07-14 14:15 | P.BASOAP ---
Subjective Progress Note Date: 07/14/24 Principal diagnosis: Morbid obesity Patient returns after being seen in May. Patient was too tight at the time and had 2.5 cc removed. Upper GI showed mild narrowing at the band site. Since the band was loosened the patient has lost most of her restriction. Feels too loose. No dysphagia. No GERD. No vomiting. Patient would like fluid added. She has gained 8 pounds. Objective - Vital Signs Vital signs: Vital Signs Temp 99.1 F 07/14/24 13:42 Pulse 102 H 07/14/24 13:42 Resp 16 07/14/24 13:42 BP 164/76 07/14/24 13:42 Pulse Ox FiO2 Intake & Output 07/13/24 07/14/24 07/14/24 18:59 06:59 18:59 Weight 141.067 kg - Exam Abdomen: Soft, nontender, nondistended Assessment/Plan (1) Morbid obesity Narrative/Plan: 48-year-old female with morbid obesity. Will add fluid to the band today. 1.5 cc will be added for a total of 3.2 cc. The patient's lap band port was palpated. The site was aseptically prepped. The Delatorre needle was advanced into the port. A total of 1.5 ml of fluid was added. Pressure was held and a sterile dressing was applied. Plan: Date: 07/14/24 Initial Weight: 102.33 kg Initial BMI: 39.9 Current Weight: 141.067 kg Current BMI: 55.0 Type of Surgery: Adjustable Gastric Banding Total Volume in Band: 1.7 Previous Volume: Volume Removed: Volume Added: Band Size:
== END ==
LOC: BARWHC3 13:22
PROVIDERS: ATTEND Surgery
DX: E66.01 Morbid (severe) obesity due to excess calories (principal); Z68.39 Body mass index [BMI] 39.0-39.9, adult; Z88.0 Allergy status to penicillin; Z88.1 Allergy status to other antibiotic agents; Z88.5 Allergy status to narcotic agent; Z88.2 Allergy status to sulfonamides; F17.210 Nicotine dependence, cigarettes, uncomplicated
CPT/HCPCS: 43999

== ENCOUNTER → 2024-08-18 | Outpatient (CLI) | payer BC ==
[2024-08-18 15:30] VITALS: BP 128/69; PULSE 100; RESP 16; TEMP 99; BMI 56.0
--- NOTE | 2024-08-18 16:01 | P.BASOAP ---
Subjective Progress Note Date: 08/18/24 Principal diagnosis: Morbid obesity Patient returns for recheck. Doing well since last visit. Has gained 5 more pounds. Says she still does not feel much restriction. No difficulty eating bread and sandwiches. Wants a additional fill. Objective - Vital Signs Vital signs: Vital Signs Temp 99 F 08/18/24 15:27 Pulse 100 08/18/24 15:27 Resp 16 08/18/24 15:27 BP 128/69 08/18/24 15:27 Pulse Ox FiO2 Intake & Output 08/17/24 08/18/24 08/18/24 18:59 06:59 18:59 Weight 143.335 kg - Exam Abdomen: Soft, nontender, nondistended Assessment/Plan (1) Morbid obesity Narrative/Plan: Patient here requesting additional Lap-Band adjustment. Will add 0.5 cc at this time. The patient's lap band port was palpated. The site was aseptically prepped. The Delatorre needle was advanced into the port. A total of 0.5 ml of fluid was added for a total of 3.7 cc. Pressure was held and a sterile dressing was applied. Plan: Date: 08/18/24 Initial Weight: 102.33 kg Initial BMI: 39.9 Current Weight: 143.335 kg Current BMI: 56.0 Type of Surgery: Adjustable Gastric Banding Total Volume in Band: 3.2 Previous Volume: Volume Removed: Volume Added: Band Size:
== END ==
LOC: BARWHC3 14:53
PROVIDERS: ATTEND Surgery
DX: E66.01 Morbid (severe) obesity due to excess calories (principal); Z68.43 Body mass index [BMI] 50.0-59.9, adult; Z88.0 Allergy status to penicillin; Z88.2 Allergy status to sulfonamides; Z88.5 Allergy status to narcotic agent; Z88.1 Allergy status to other antibiotic agents; F17.210 Nicotine dependence, cigarettes, uncomplicated
CPT/HCPCS: 43999

== ENCOUNTER → 2024-08-25 | Outpatient (CLI) | payer BC ==
--- NOTE | 2024-08-25 17:01 | CA ---
Transthoracic Echo Report Name: Kylee Morrell Age: 48 Gender: F : 1975 Exam Date: 08/25/2024 14:35 Exam Location: [facility] Ht (in): 63 Wt (lb): 316 Ordering Physician: Julieth Perez MD Attending/Referring Phys: Julieth Perez MD Sanitation Supervisor Mily Steele, JESSICA Procedure CPT: Indications: Z95.2 presence of prosthetic heart valve Cardiac Hx: Technical Quality: Fair Contrast 1: Definity Total Dose (mL): 2 Contrast 2: Total Dose (mL): MEASUREMENTS (Male / Female) Normal Values 2D ECHO LV Diastolic Diameter PLAX 4.3 cm 4.2 - 5.9 / 3.9 - 5.3 cm LV Systolic Diameter PLAX 2.8 cm IVS Diastolic Thickness 1.4 cm 0.6 - 1.0 / 0.6 - 0.9 cm LVPW Diastolic Thickness 1.3 cm 0.6 - 1.0 / 0.6 - 0.9 cm LV Relative Wall Thickness 0.6 RV Internal Dim ED PLAX 2.6 cm LA Systolic Diameter LX 4.5 cm 3.0 - 4.0 / 2.7 - 3.8 cm M-MODE Aortic Root Diameter MM 2.4 cm LA Systolic Diameter MM 4.1 cm LA Ao Ratio MM 1.7 DOPPLER AV Peak Velocity 314.2 cm/s AV Peak Gradient 39.5 mmHg AV Mean Velocity 195.9 cm/s AV Mean Gradient 19.2 mmHg AV Velocity Time Integral 56.7 cm LVOT Peak Velocity 98.1 cm/s LVOT Peak Gradient 3.9 mmHg LVOT Velocity Time Integral 27.5 cm Mitral E Point Velocity 117.3 cm/s Mitral A Point Velocity 106.1 cm/s Mitral E to A Ratio 1.1 MV Deceleration Time 346.3 ms MV E' Velocity 6.2 cm/s Mitral E to MV E' Ratio 18.9 TR Peak Velocity 199.7 cm/s TR Peak Gradient 16.0 mmHg Right Ventricular Systolic Press 26.8 mmHg FINDINGS Left Ventricle Left ventricular ejection fraction is estimated at 55-60 %. Moderately increased septal wall thickness. Moderately increased posterior wall thickness. Normal left ventricular systolic function with no obvious regional wall motion abnormalities. Right Ventricle Normal right ventricular size and function. Right ventricular systolic pressure within normal limits. Right Atrium Normal right atrial size. Left Atrium Moderately increased left atrial diameter. Mitral Valve Structurally normal mitral valve. [id number] mitral regurgitation. No mitral stenosis. Aortic Valve Prosthetic aortic valve prosthesis not well visualized. Borderline prosthetic stenosis with a peak gradient of 39mmHg and a mean gradient of 19mmHg. No paravalvular aortic regurgitation. No central aortic regurgitation. Tricuspid Valve Structurally normal tricuspid valve. Mild tricuspid regurgitation. No tricuspid stenosis. Pulmonic Valve Structurally normal pulmonic valve. Trace pulmonic regurgitation. No pulmonic stenosis. Pericardium No pericardial or pleural effusion. Aorta Normal size aortic root and proximal ascending aorta. CONCLUSIONS Normal LV function Mild to moderate mitral regurgitation I aortic prosthetic valve is not well-visualized the peak gradient across the valve is 39 mm with a mean gradient of 19 mm suggestive of mild prosthetic valve stenosis-there is 2 previous echo to see where the gradients were Previewed by: Dr. Ralph Ellis MD (Electronically Signed) Final Date: 25 August 2024 17:00
== END | disposition home or self-care (01) ==
LOC: RADECHMAIN 08-04 16:24
PROVIDERS: ATTEND Internal Medicine Cardiovascular Disease
DX: I25.10 Atherosclerotic heart disease of native coronary artery without angina pectoris (principal); Z95.2 Presence of prosthetic heart valve; I34.0 Nonrheumatic mitral (valve) insufficiency; I07.1 Rheumatic tricuspid insufficiency; I37.1 Nonrheumatic pulmonary valve insufficiency
CPT/HCPCS: 93306

== ENCOUNTER → 2024-09-11 | Outpatient (CLI) | payer BC ==
--- NOTE | 2024-09-14 07:49 | MM ---
Reason for Exam: Screening (asymptomatic). Last mammogram was performed 1 year(s) and 10 month(s) ago. Patient History: Menarche at age 12. First Full-Term at age 29. Currently using Hormonal Contraceptives, starting at age 14. Maternal grandmother had breast cancer, age 70. Maternal aunt had breast cancer. Risk Values: Siomara 5 year model risk: 1.1%. NCI Lifetime model risk: 11.3%. Prior Study Comparison: 02/25/2020 Bilateral Screening Mammogram, [facility]. 07/27/2021 Bilateral Screening Mammogram, [facility]. 11/14/2022 Bilateral MG screening mammo w CAD, [facility]. Tissue Density: There are scattered areas of fibroglandular density. Findings: Analyzed By CAD. Right breast: There is no suspicious group of microcalcifications or new suspicious mass. Left breast: There is no suspicious group of microcalcifications or new suspicious mass. Overall Assessment: Negative, BI-RAD 1 Management: Screening Mammogram of both breasts in [address] [facility] will attempt to contact patient to return for supplemental views and ultrasound if indicated. Patient should continue monthly self-breast exams. A clinical breast exam by your physician is recommended on an annual basis. This exam should not preclude additional follow-up of suspicious palpable abnormalities. Note on Siomara scores and lifetime risk: 1. A Siomara score greater than 3% is considered moderate risk. If this is the case, consider specialist referral to assess eligibility for a risk reducing agent. 2. If overall lifetime risk for the development of breast cancer is 20% or higher, the patient may qualify for future screening with alternating mammogram and breast MRI. [facility], , 09/14/2024 7:46 AM. Electronically signed and approved by: Vadim Pineda DO
== END | disposition home or self-care (01) ==
LOC: RADMAMWWP 16:26
PROVIDERS: ATTEND Obstetrics & Gynecology
DX: Z12.31 Encounter for screening mammogram for malignant neoplasm of breast (principal); Z80.3 Family history of malignant neoplasm of breast; R92.323 Mammographic fibroglandular density, bilateral breasts
CPT/HCPCS: 77067

== ENCOUNTER → 2025-01-12 | Outpatient (CLI) | payer BC ==
--- NOTE | 2025-01-12 13:18 | XR ---
EXAMINATION TYPE: XR lumbar spine 3V DATE OF EXAM: 01/12/2025 11:48 AM COMPARISON: None CLINICAL INDICATION: Female, 49 years old with history of M54.16 RADICULOPATHY, LUMBAR REGION; PHH, p ain FINDINGS: Cholecystectomy clips. 5 lumbar type vertebral bodies. Moderate facet arthropathy lower lum bar spine. Trace grade 1 anterolisthesis L4-L5. Vertebral body heights and disc interspaces are relat ively maintained. IMPRESSION: Hypertrophic facet arthropathy lower lumbar spine with degenerative grade 1 anterolisthesis L4-L5. No vertebral compression collapse. [facility], Workstation: [facility], 01/12/2025 1:16 PM
== END | disposition home or self-care (01) ==
LOC: RADXRMAIN 11:16
PROVIDERS: ATTEND Internal Medicine Geriatric Medicine
DX: M47.26 Other spondylosis with radiculopathy, lumbar region (principal); M43.16 Spondylolisthesis, lumbar region
CPT/HCPCS: 72100

== ENCOUNTER 2025-01-25 12:24 | Emergency (ER) | payer BC ==
--- NOTE | 2025-01-25 14:02 | ED ---
General Adult HPI - General Chief complaint: Shortness of Breath Stated complaint: cough Time Seen by Provider: 01/25/25 13:45 Source: patient, RN notes reviewed, old records reviewed Mode of arrival: ambulatory Limitations: no limitations - History of Present Illness Initial comments: Patient is a 49-year-old female who presents emergency department complaining of cough, congestion, dyspnea. 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 Has not missed any doses. Also has a history of a cardiac valve repair who presents emergency department complaining of cough, congestion, wheezing for the last 2 weeks. Originally was placed on azithromycin, low-dose steroids that she states higher dose than 10 mg of prednisone causes agitation, and she did feel improved however once again had worsening symptoms. Is having a productive cough but states that when her wheezing gets worse, she feels like it is still stuck inside. She denies any fevers or chills. Denies sore throat. Denies nausea vomiting diarrhea. Denies abdominal pain or chest pain. Denies any lower extremity swelling. Presents for further evaluation at this time. Is on breathing treatments at home. Currently not on steroids or antibiotics. - Related Data Home Medications Medication Instructions Recorded Confirmed Cyanocobalamin [Vitamin B-12] 2,000 mcg PO DAILY 03/18/15 08/19/24 ALPRAZolam [Xanax] 1 mg PO BID PRN 03/20/21 08/19/24 Albuterol Sulfate [Proventil Hfa] 1 puff INHALATION RT-Q4H PRN 03/20/21 08/19/24 hydroCHLOROthiazide [Hydrodiuril] 25 mg PO DAILY 03/20/21 08/19/24 traMADol HCL [Ultram] 50 mg PO BID PRN 03/20/21 08/19/24 Metoprolol Succinate (ER) [Toprol 100 mg PO DAILY 03/31/21 08/19/24 XL] Escitalopram [Lexapro] 20 mg PO DAILY 10/23/21 08/19/24 Aspirin [Adult Low Dose Aspirin EC] 81 mg PO DAILY 02/16/22 08/19/24 Triamcinolone Acetonide [Nasacort] 1 spray EA NOSTRIL DAILY PRN 02/16/22 08/19/24 Cholecalciferol [Vitamin D3 (125 125 mcg PO DAILY 02/23/24 08/19/24 Mcg = 5000 Iu)] Levothyroxine Sodium [Synthroid] 75 mcg PO DAILY 02/23/24 08/19/24 Losartan Potassium [Cozaar] 100 mg PO DAILY 02/23/24 08/19/24 Previous Rx's Medication Instructions Recorded Doxycycline Hyclate 100 mg PO BID 7 Days #14 tab 01/25/25 predniSONE 10 mg PO DAILY 4 Days #4 tab 01/25/25 Allergies Allergy/AdvReac Type Severity Reaction Status Date / Time amoxicillin [From Augmentin] Allergy Rash/Hives Verified 01/25/25 12:32 clavulanic acid Allergy Rash/Hives Verified 01/25/25 12:32 [From Augmentin] codeine Allergy Rash/Hives Verified 01/25/25 12:32 Sulfa (Sulfonamide Allergy Rash/Hives Verified 01/25/25 12:32 Antibiotics) Review of Systems ROS Statement: Those systems with pertinent positive or pertinent negative responses have been documented in the HPI. Review of Systems: CONST: Denies fever EYES: Denies blurry vision ENT: Endorses nasal congestion C/V: Denies Chest pain RESP: Endorses cough, wheezing GI: Denies abdominal pain : Denies dysuria SKIN: Denies rash. MSK: Denies joint pain. NEURO: Denies headache ROS Other: All systems not noted in ROS Statement are negative. Past Medical History Past Medical History: Asthma, GERD/Reflux, Hyperlipidemia, Hypertension, Pulmonary Embolus (PE), Thyroid Disorder Additional Past Medical History / Comment(s): heart murmur. defects with heart at . History of Any Multi-Drug Resistant Organisms: None Reported Past Surgical History: Adenoidectomy, Bariatric Surgery, Cardiac Valve Replacement, Section, Cholecystectomy, Heart Catheterization, Tonsillec paulina Additional Past Surgical History / Comment(s): open heart aug 2015, april 2017. cow valve - main aortic valve. bicupsid valve repl. Past Anesthesia/Blood Transfusion Reactions: No Reported Reaction Past Psychological History: Anxiety Smoking Status: Light tobacco smoker, Vaper Past Alcohol Use History: Occasional Past Drug Use History: None Reported - Past Family History Father Family Medical History: Coronary Artery Disease (CAD), Diabetes Mellitus, Hypertension Additional Family Medical History / Comment(s): at 47 Heart issues General Exam - General Exam Comments Initial Comments: General: Appears in no acute distress. HEAD: Normal with no signs of head trauma. EYES: PERRLA, EOMI, conjunctiva normal, no discharge. ENT: Hearing grossly intact, normal oropharynx. RESPIRATORY: Bilateral wheezing. No hypoxia. No increased work of breathing. C/V: Regular rate and rhythm. S1 and S2 auscultated, no significant lower extremity edema, peripheral pulses 2+ and intact throughout ABD: Abd is soft, nontender, nondistended EXT: Normal range of motion, no obvious deformity SKIN: No rashes or lesions observed on exposed skin. NEURO: Alert and oriented x 4. Limitations: no limitations Course Vital Signs 01/25/25 01/25/25 01/25/25 12:28 14:30 15:32 Temperature 98.9 F 98.2 F Pulse Rate 96 82 Respiratory 20 20 20 Rate Blood Pressure 176/83 134/58 O2 Sat by Pulse 97 98 Oximetry 01/25/25 01/25/25 01/25/25 16:02 16:11 16:30 Temperature Pulse Rate 83 88 87 Respiratory 18 18 20 Rate Blood Pressure O2 Sat by Pulse 97 Oximetry 01/25/25 17:15 Temperature 98 F Pulse Rate 91 Respiratory 20 Rate Blood Pressure 132/67 O2 Sat by Pulse 97 Oximetry Medical Decision Making - Medical Decision Making Was pt. sent in by a medical professional or institution ([place] [facility], [employer], urgent care, hospital, or [facility]...) When possible be specific @ -No Did you speak to anyone other than the patient for history (EMS, parent, family, police, friend...)? What history was obtained from this source @ -No Did you review nursing and triage notes (agree or disagree)? Why? @ -I reviewed and agree with nursing and triage notes Were old charts reviewed (outside hosp., previous admission, EMS record, old EKG, old radiological studies, urgent care reports/EKG's, [facility] records)? Report findings @ -No old charts were reviewed Differential Diagnosis (chest pain, altered mental status, abdominal pain women, abdominal pain men, vaginal bleeding, weakness, fever, dyspnea, syncope, headache, dizziness, GI bleed, back pain, seizure, CVA, palpatations, mental health, musculoskeletal)? @ -COPD, viral syndrome, COVID, flu, RSV, pneumonia. This list is not all inclusive. EKG interpreted by me (3pts min.). @ -As above X-rays interpreted by me (1pt min.). @ -Chest x-ray shows no obvious acute cardiopulmonary process. CT interpreted by me (1pt min.). @ -None done U/S interpreted by me (1pt. min.). @ -None done What testing was considered but not performed or refused? (CT, X-rays, U/S, labs)? Why? @ -None What meds were considered but not given or refused? Why? @ -None Did you discuss the management of the patient with other professionals (professionals i.e. , PA, [employer], lab, RT, psych nurse, marriage and family social worker, wheel aligner, teacher, community service officer coordinator, watch caser)? Give summary @ -No Was smoking cessation discussed for >3mins.? @ -No Was critical care preformed (if so, how long)? @ -No Were there social determinants of health that impacted care today? How? (Homelessness, low income, unemployed, alcoholism, drug addiction, transporta tion, low edu. Level, literacy, decrease access to med. care, custodial, rehab)? @ -No Was there de-escalation of care discussed even if they declined (Discuss DNR or withdrawal of care, Hospice)? DNR status @ -No What co-morbidities impacted this encounter? (DM, HTN, Smoking, COPD, CAD, Cancer, CVA, ARF, Chemo, Hep., AIDS, mental health diagnosis, sleep apnea, morbid obesity)? @ -COPD Was patient admitted / discharged? Hospital course, mention meds given and route, prescriptions, significant lab abnormalities, going to OR and other pertinent info. @ -Based on patient's presentation physical exam, presents emergency department complaining of cough, wheezing, congestion. Has been ongoing for the last 2 weeks. Seems to be more infectious and COPD in nature. Does have a history of PEs however patient is fully compliant with her Eliquis, has not missed any doses, and has not obvious other etiology for her symptoms. No concern for PE at this time. Vitals are within acceptable limits. We will obtain basic labs, chest x-ray, EKG, viral swabs. She will be symptomatically treat with a double breathing treatment, IV magnesium as well as a low-dose of oral steroid, as she cannot tolerate higher dose steroids as they make her agitated. She states prednisone 10 mg is adequate. She was in agreement with this plan. EKG today compared with EKG from April 2024 with no significant acute change. Labs returned remarkable for negative viral swabs. Remainder the workup unremarkable. Slight leukocytosis of 10.4. Chest x-ray shows no obvious acute cardiopulmonary process. On reevaluation, patient is feeling improved following breathing treatment. I did discuss with her that her diagnosis is tracheobronchitis as well as asthma. Patient states she has breathing treatments as well as inhalers at home and does not need a refill but she will be started on doxycycline as well as given a prescription for prednisone 10 mg daily. She was in agreement this plan. Strict return precautions discussed. 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 I instructed the patient to follow up with their PCP in the next 1-3 days. I explained that the patient should return to the emergency department if they experience any worsening symptoms. Strict return precautions were discussed with the patient. The patient expressed understanding of these instructions. I answer ed all questions that the patient had. The patient was discharged home in [good] condition with their prescriptions and follow up information. Undiagnosed new problem with uncertain prognosis? @ -No Drug Therapy requiring intensive monitoring for toxicity (Heparin, Nitro, Insulin, Cardizem)? @ -No Were any procedures done? @ -No Diagnosis/symptom? @ -Asthma, tracheobronchitis Acute, or Chronic, or Acute on Chronic? @ -Acute Uncomplicated (without systemic symptoms) or Complicated (systemic symptoms)? @ -Uncomplicated Side effects of treatment? @ -None Exacerbation, Progression, or Severe Exacerbation] @ -No Poses a threat to life or bodily function? @ -Unlikely at this time - Lab Data Result diagrams: 01/25/25 14:34 01/25/25 14:34 Lab Results 01/25/25 01/25/25 01/25/25 Range/Units 14:34 14:34 14:37 WBC 10.46 H (4.50-10.00) 10*3/uL RBC 4.33 (4.10-5.20) 10*6/uL Hgb 12.9 (12.0-15.0) g/dL Hct 38.1 (37.2-46.3) % MCV 88.0 (80.0-97.0) fL MCH 29.8 (27.0-32.0) pg MCHC 33.9 (32.0-37.0) g/dL Plt Count 269 (140-440) 10*3/uL MPV 10.4 (9.5-12.2) fL Immature Gran % (Auto) 0.6 % Neutrophils % 71.6 % Lymphocytes % 20.1 % Monocytes % 4.9 % Eosinophils % 2.3 % Basophils % 0.5 % Immature Gran # 0.06 H (0.00-0.04) 10*3/uL Neutrophils # 7.50 (1.80-7.70) 10*3/uL Lymphocytes # 2.10 (0.90-5.00) 10*3/uL Monocytes # 0.51 (0.20-1.00) 10*3/uL Eosinophils # 0.24 (0.04-0.35) 10*3/uL Basophils # 0.05 (0.00-0.10) 10*3/uL Sodium 133 L (137-145) mmol/L Potassium 3.6 (3.5-5.1) mmol/L Chloride 99 (98-107) mmol/L Carbon Dioxide 28 (22-30) mmol/L Anion Gap 6 mmol/L BUN 14 (7-17) mg/dL Creatinine 0.56 (0.52-1.04) mg/dL Est GFR (CKD-EPI)AfAm >90 (>60 ml/min/1.73 sqM) Est GFR (CKD-EPI)NonAf >90 (>60 ml/min/1.73 sqM) Glucose 116 H (74-99) mg/dL Calcium 9.4 (8.4-10.2) mg/dL Magnesium 1.6 (1.6-2.3) mg/dL Total Bilirubin 0.6 (0.2-1.3) mg/dL AST 33 (14-36) U/L ALT 24 (4-34) U/L Alkaline Phosphatase 52 (38-126) U/L Total Protein 6.6 (6.3-8.2) g/dL Albumin 3.6 (3.5-5.0) g/dL Influenza Type A (PCR) Not Detected (Not Detectd) Influenza Type B (PCR) Not Detected (Not Detectd) RSV (PCR) Not Detected (Not Detectd) SARS-CoV-2 (PCR) Not Detected (Not Detectd) - EKG Data -: EKG Interpreted by Me EKG Comments: 12-lead Electrocardiogram Interpretation Note EKG was reviewed and interpreted by myself. 12-lead ECG performed at 1237 is int erpreted by me as revealing normal sinus rhythm at a rate of 99 beats per minute. [place] is rightward deviated. WI interval is at 112 ms, QRS durations 117 ms, QTc is 463 ms.. There were no ST or T wave abnormalities to suggest myocardial ischemia or injury. R wave progression across the precordium was satisfactory. By my interpretation this EKG is non-diagnostic for acute ischemia. Compared with EKG from April 2024 with no significant acute change. Incomplete right bundle branch block redemonstrated. Disposition Clinical Impression: Tracheobronchitis, Asthma Disposition: HOME SELF-CARE Condition: Good Instructions (If sedation given, give patient instructions): Asthma (ED), Acute Bronchitis (ED) Prescriptions: Doxycycline Hyclate 100 mg PO BID 7 Days #14 tab predniSONE 10 mg PO DAILY 4 Days #4 tab Is patient prescribed a controlled substance at d/c from ED?: No Referrals: Silvino Stafford MD [Primary Care Provider] - 1-2 days Time of Disposition: 16:38
--- NOTE | 2025-01-25 14:43 | XR ---
EXAMINATION TYPE: XR chest 2V DATE OF EXAM: 01/25/2025 2:22 PM COMPARISON: 04/13/2024 CLINICAL INDICATION: Female, 49 years old with history of cough, , TECHNIQUE: AP and lateral views FINDINGS: Portable exam further limited by large patient body habitus. Median sternotomy wires. No vernon consol idation or pleural effusion seen. Heart borderline in size. IMPRESSION: Portable exam further limited by large patient body habitus. No definite acute process. [facility], Workstation: [facility], 01/25/2025 2:41 PM
[2025-01-25 14:50] LABS: Basophils # (A) 0.05 10*3/uL (0.00-0.10); Basophils % (A) 0.5 %; Eosinophils # (A) 0.24 10*3/uL (0.04-0.35); Eosinophils % (A) 2.3 %; HCT 38.1 % (37.2-46.3); HGB 12.9 g/dL (12.0-15.0); Lymphocytes % (A) 20.1 %; MCH 29.8 pg (27.0-32.0); MCHC 33.9 g/dL (32.0-37.0); Mean Platelet Volume 10.4 fL (9.5-12.2); Monocytes # (A) 0.51 10*3/uL (0.20-1.00); Monocytes % (A) 4.9 %; Neutrophils % (A) 71.6 %; Platelet Count 269 10*3/uL (140-440); RBC 4.33 10*6/uL (4.10-5.20); RDW 12.5 % (11.5-14.5); WBC 10.46 10*3/uL (4.50-10.00)
[2025-01-25 15:04] LABS: ALT 24 U/L (4-34); AST 33 U/L (14-36); African American GFR (CKD) >90 (>60 ml/min/1.73 sqM); Albumin 3.6 g/dL (3.5-5.0); Alkaline Phosphatase 52 U/L (38-126); Anion Gap 6 mmol/L; Blood Urea Nitrogen 14 mg/dL (7-17); Calcium 9.4 mg/dL (8.4-10.2); Carbon Dioxide 28 mmol/L (22-30); Chloride 99 mmol/L (98-107); Glucose 116 mg/dL (74-99); Magnesium 1.6 mg/dL (1.6-2.3); Non-African American GFR(CKD) >90 (>60 ml/min/1.73 sqM); Potassium 3.6 mmol/L (3.5-5.1); Sodium 133 mmol/L (137-145); Total Bilirubin 0.6 mg/dL (0.2-1.3); Total Protein 6.6 g/dL (6.3-8.2)
[2025-01-25] MEDS: MAGNESIUM SULFATE-D5W PMX 1 GM in DEXTROSE/WATER 1 100ML.BAG IVPB ONE (15:12)
[2025-01-25] MEDS: predniSONE 10 MG TAB PO STA ×2 (15:18→15:56)
[2025-01-25 15:27] LABS: Influenza A Not Detected (Not Detectd); Influenza B Not Detected (Not Detectd); RSV Not Detected (Not Detectd)
[2025-01-25] MEDS: IPRATROPIUM-ALBUTEROL 3 ML NEB INHALATION STA (15:59)
[2025-01-25] MEDS: DOXYCYCLINE 100 MG TABLET PO STA (17:02)
[2025-01-25 17:20] VITALS: RESP 20
[2025-01-25 17:22] VITALS: BP 132/67; PULSE 91; TEMP 98
== END 2025-01-25 17:15 | disposition home or self-care (01) ==
LOC: EC 12:24
DX: J45.909 Unspecified asthma, uncomplicated (principal); J44.9 Chronic obstructive pulmonary disease, unspecified; F17.290 Nicotine dependence, other tobacco product, uncomplicated; Z88.2 Allergy status to sulfonamides; Z88.1 Allergy status to other antibiotic agents; Z88.5 Allergy status to narcotic agent; Z88.0 Allergy status to penicillin; Z79.01 Long term (current) use of anticoagulants
CPT/HCPCS: 36415; 94640; 93005; 80053; 83735; 85025; 87636; 71046; 99285; 96365; J3475; J7512